=== PATIENT | male | born 1935 | race African-American/Black ===

== ENCOUNTER → 2018-05-17 08:46 | Outpatient (CLI) | payer MEDICARE, SELFPAY ==
[2018-05-17 08:32] VITALS: BMI 25.7
--- NOTE | 2018-05-17 08:52 | CT_ITS ---
STUDY: CTA NECK WITH AND WITHOUT CONTRAST REASON FOR EXAM: Male, 82 years old. Bilateral carotid stenosis on duplex ultrasonography. RADIATION DOSAGE (If Supplied By Facility): CTDIvol = ( 26.35 ) mGy, DLP = ( 667.00 ) mGycm TECHNIQUE: CT angiography with multi-detector data acquisition was performed from the aortic arch to the skull base prior to and after intravenous administration of 100mL ml of Isovue 370 contrast. MIP images were reconstructed from the axial data set. Post-processing of the angiographic images was performed, with multiplanar reformation and 3D reconstruction. Individualized dose optimization techniques were used for this CT. COMPARISON: None. FINDINGS: AORTIC ARCH: There is atherosclerotic calcific plaque formation of the aortic arch and great vessels arising from the aortic arch, without a hemodynamically significant stenosis. There is a normal origin of the brachiocephalic, left common carotid, and left subclavian arteries. Atherosclerotic plaque at the origin of the left subclavian artery and right brachiocephalic artery. RIGHT CAROTID ARTERIES: There is atherosclerotic plaque formation of the common carotid artery, but without a hemodynamically significant stenosis. Normal right common carotid bulb. There is moderate atherosclerotic plaque formation of the origin of the right internal carotid artery with an estimated stenosis of 50-69% stenosis. Left leg stenosis just distal to the origin of the right internal carotid artery causing a subtotal occlusion. Normal origin of the right external carotid artery (ECA). LEFT CAROTID ARTERIES: Normal left common carotid artery (CCA). Normal left common carotid bulb. There is complete occlusion of the origin of the left internal carotid artery without demonstrated arterial flow. Normal visualized cervical portion of the left internal carotid artery. Normal origin of the left external carotid artery (ECA). VERTEBRAL ARTERIES: Normal bilateral vertebral arteries. 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 Subtotal occlusion due to a web like stenosis in the proximal portion of the right internal carotid artery just distal to its origin. Electronically Signed: Mehrdad Delgado MD at 10:42 EST Tel [phone], Service support ,
[2018-05-17 09:23] LABS: Anion Gap 6 (5-15); BUN 18 mg/dL (7-18); Chloride 104 mmol/L (98-107); Creatinine, Serum 1.06 mg/dL (0.70-1.30); EST Glomerular Filtration Rate 71 mL/min (>60); Est Glom Filt Rate - Afr Amer 86 mL/min (>60); Glucose 94 mg/dL (74-106); Potassium 4.1 mmol/L (3.5-5.1); Sodium Level 142 mmol/L (136-145)
[2018-05-17 09:40] LABS: Hematocrit 39.3 % (40-54); Hemoglobin 12.2 g/dl (13.0-16.5); Mean Corpuscular Hgb 22.2 pg (27.0-32.0); Mean Corpuscular Volume 71.6 fL (80-94); Platelet Count 178 K/mm3 (150-450); RBC Distribution Width CV 16.7 % (11.6-14.6); RBC Distribution Width SD 42.9 fl (35.1-43.9); Red Blood Count 5.49 M/mm3 (4.6-6.2); White Blood Count 5.2 K/mm3 (4.4-11.0)
[2018-05-17 09:48] LABS: Scan Indicated on CBC? Y/N YES- FLAGS NOTED
== END ==
PROVIDERS: Family Provider Family Medicine; PCP Family Medicine; Referring Provider Surgery; Visit Provider Surgery
DX: Z01.818 Encounter for other preprocedural examination (principal); I65.23 Occlusion and stenosis of bilateral carotid arteries
CPT/HCPCS: 36415; 70498; 80048; 85027; 93005; Q9967

== ENCOUNTER 2018-09-12 22:29 | Inpatient (IN) | payer MEDICARE, SELFPAY ==
[2018-05-17 08:32] VITALS: BMI 25.7
[2018-09-12 22:30] VITALS: BP 160/103; PULSE 104; RESP 30; TEMP 37.8; O2SAT 94; BMI 26.2
--- NOTE | 2018-09-12 22:34 | EKG12_ITS ---
Test Reason : SOB Blood Pressure : / mmHG Vent. Rate : 089 BPM Atrial Rate : 089 BPM P-R Int : 146 ms QRS Dur : 094 ms QT Int : 346 ms P-R-T Axes : 021 006 015 degrees QTc Int : 420 ms Sinus rhythm with Premature atrial complexes Incomplete right bundle branch block Borderline ECG Confirmed by ERNESTINE FRANCIS ([id number]), purchasing expeditor MAXWELL LION ([id number]) on 09/15/2018 11:05:58 AM Referred By: ALLYSSA Confirmed By:ERNESTINE FRANCIS
[2018-09-12 22:35] VITALS: BP 160/103; PULSE 106; RESP 30; TEMP 37.8; O2SAT 97
--- NOTE | 2018-09-12 22:39 | ED.DCSUM_ITS ---
- ER Visit Summary Date of Service: 09/12/18 Chief Complaint: Cough, shortness of breath History of Present Illness: The patient is a 83 M presents to the emergency department with cough and shortness of breath. The patient states his symptoms began earlier this afternoon. He states he had gradual worsening shortness of breath. The patient does have a history of emphysema and continues to smoke. He is not on oxygen at home. States he just felt like he was getting more short of breath, more fatigued, more weak. He denies any chest pain. He denies headache or visual change. He has had myalgias and arthralgias. He denies any neck pain. He has had productive sputum and a few bouts of posttussive emesis. He denies any urinary symptoms. Physical Examination: Vital signs reviewed General: Well-nourished, well-developed Head: Normocephalic, atraumatic Eyes: Pupils equal and reactive, extraocular muscles intact Neck, supple, no lymphadenopathy Heart: Regular rate and rhythm Respiratory: Wheezing in all lung fuentes with diminished respiratory movement Abdomen: Soft, nontender, nondistended, no peritoneal signs Back: Nontender Extremities: Nontender, no edema, no cords Skin: Normal color no rash Neuro: Alert and oriented, no focal or lateralizing deficits Test Results: [] Emergency Department Course and Treatment: Patient presents with cough, shortness of breath, and fever. His lungs have diffuse wheezing in all fuentes. Chest x-ray was obtained. There is no definitive focal infiltrate, but he does have some haziness in the right lower base. Screening labs obtained were unremarkable. With nebulized breathing treatments, steroids, and fluids, he is feeling markedly improved. He is resting comfortably with resolution of his tachypnea. Patient had blood cultures obtained. His lactic was normal. Given his increased work of breathing I do feel that he would benefit from admission. I am going to cover him for community-acquired pneumonia with plan to de- escalate antibiotics as necessary. The patient was discussed with the hospitalist. Treatment Plan: [] Disposition: Admission Impression: 1. COPD exacerbation 2. Hypoxia This note was generated with [employer] software. It may contain incorrect words, spelling, and punctuation that were not noted in review of the chart prior to signing ED Disposition - Plan for ED Patient: Referrals: Marcos Moraes MD [Primary Care Provider] -
[2018-09-12] MEDS: Acetaminophen 500 MG Tablet 1000 MG PO (22:40)
[2018-09-12] MEDS: MethylPREDNISolone 125 MG/2 ML Vial IV (22:40)
--- NOTE | 2018-09-12 22:40 | RAD_ITS ---
STUDY: X-RAY CHEST REASON FOR EXAM: Male, 83 years old. Shortness of breath TECHNIQUE: Single frontal view of the chest. COMPARISON: None. FINDINGS: The lungs are clear and expanded. There is no demonstrated pleural abnormality. Normal size heart. Normal mediastinum and ryan. Normal visualized pulmonary arteries. Normal visualized aortic arch and descending thoracic aorta. Normal visualized thoracic spine. Normal visualized ribs, clavicles, and shoulders. There is no demonstrated abnormality of the visualized soft tissue structures of the upper abdomen. RAD/Chest 1 View (Portable) IMPRESSION: Normal x-ray examination of the chest. Electronically Signed: Mc Nolasco MD at 22:55 EDT , Service support ,
--- NOTE | 2018-09-12 22:40 | ED.RN ---
NO OLD EKGS IN MUSE
[2018-09-12] MEDS: 0.9% Normal Saline 1,000 ML 150 ML IV (22:41)
[2018-09-12] MEDS: Ondansetron 4 MG/2 ML Vial IV (22:42)
[2018-09-12] MEDS: Ipratropium/Albuterol Sulfate 3 ML AMPUL.NEB INHALATION (23:00)
[2018-09-12] MEDS: Albuterol 2.5 MG/3 ML VIAL.NEB. INHALATION ×2 (23:00)
[2018-09-12 23:01] VITALS: PULSE 89; RESP 20
[2018-09-12 23:02] LABS: Absolute Lymphocyte Count 0.78 X10^3/ul (0.83-4.51); Absolute Neutrophil Count 6.6 X10^3/uL (2.0-7.7); Basophil# 0.02 X10^3/uL; Basophil% 0.3 % (0-1); Differential Indicated SCAN CRITERIA MET; Eosinophil# 0.02 X10^3/uL; Eosinophils% 0.3 % (0-5); Hematocrit 37.6 % (40-54); Hemoglobin 11.7 g/dl (13.0-16.5); Lymphocyte # 0.78 X10^3/ul (4.0); Lymphocyte % 10.3 % (19-41); Mean Corp Hgb Conc 31.1 g/gl (32-36); Mean Corpuscular Hgb 22.2 pg (27.0-32.0); Mean Corpuscular Volume 71.3 fL (80-94); Monocyte# 0.17 X10^3/uL; Monocyte% 2.2 % (0-10); Neutrophil # 6.58 X10^3/uL (2.7-7.7); Neutrophil % 86.8 % (47-70); POSITIVE COUNT NO; POSITIVE DIFFERENTIAL NO; POSITIVE MORPHOLOGY YES; Platelet Count 137 K/mm3 (150-450); RBC Distribution Width CV 16.6 % (11.6-14.6); RBC Distribution Width SD 42.6 fl (35.1-43.9); Red Blood Count 5.27 M/mm3 (4.6-6.2); White Blood Count 7.6 K/mm3 (4.4-11.0)
[2018-09-12 23:10] LABS: Anion Gap 5 (5-15); BUN 28 mg/dL (7-18); BUN/Creat Ratio 19.2 RATIO (10-20); Calcium,Total 8.9 mg/dL (8.5-10.1); Chloride 105 mmol/L (98-107); Creatinine, Serum 1.46 mg/dL (0.70-1.30); EST Glomerular Filtration Rate 49 mL/min (>60); Est Glom Filt Rate - Afr Amer 59 mL/min (>60); Estimated Creatinine Clearance 46.24 ml/min; Glucose 105 mg/dL (74-106); Sodium Level 139 mmol/L (136-145)
[2018-09-12 23:18] VITALS: BP 94/70; PULSE 86; RESP 26; TEMP 38.3; O2SAT 100
[2018-09-12 23:23] LABS: Differential Comment SCANNED; Platelet Estimate SLT DEC (ADEQ)
[2018-09-12 23:28] LABS: BNP,B-Type NATRIURETIC PEPTIDE 107.3 pg/mL (0-100); Lactic Acid 1.4 mmol/L (0.4-2.0)
[2018-09-12] MEDS: Ceftriaxone 1 GM/50 ML BAG IV (23:45)
[2018-09-12 23:46] VITALS: BP 108/69; PULSE 93; RESP 24; O2SAT 100
[2018-09-12 23:47] VITALS: PULSE 92; RESP 18
--- NOTE | 2018-09-12 23:51 | PCM.HP.STD ---
Problem List (1) Acute respiratory failure with hypoxia Status: Acute (2) Sepsis Status: Acute Qualifiers: Sepsis type: sepsis due to unspecified organism Qualified Code(s): A41.9 - Sepsis, unspecified organism (3) Pneumonia Status: Acute Qualifiers: Pneumonia type: due to unspecified organism Laterality: right Lung location: unspecified part of lung Qualified Code(s): J18.9 - Pneumonia, unspecified organism (4) COPD exacerbation Status: Acute (5) ANGLE (acute kidney injury) Status: Acute (6) Carotid stenosis, bilateral Status: Chronic (7) Microcytic anemia Status: Chronic (8) Hyperlipidemia Status: Chronic Qualifiers: Hyperlipidemia type: unspecified Qualified Code(s): E78.5 - Hyperlipidemia, unspecified (9) Hypertension Status: Chronic Qualifiers: Hypertension type: essential hypertension Qualified Code(s): I10 - Essential (primary) hypertension (10) History of kidney stones Status: Chronic (11) BPH (benign prostatic hyperplasia) Status: Chronic Qualifiers: Lower urinary tract symptom presence: unspecified whether lower urinary tract symptoms present Qualified Code(s): N40.0 - Benign prostatic hyperplasia without lower urinary tract symptoms (12) Arthritis Status: Chronic (13) Former tobacco use Status: Chronic History of Present Illness Date of Admission: 09/12/18 Chief Complaint: Dyspnea, wheezing, productive cough, fever, chills The patient is a 83 y/o M w/ PMHx: Chronic COPD, Former Tobacco use (prolonged), BPH, Carotid disease BL without intervention, HTN, HLD, OA, Microcytic anemia, Hx Nephrolithiasis who presents to the [facility] ED on 09/12/18 with history of nearing 2-week history of mild upper respiratory symptoms with rhinorrhea, congestion, productive sputum occasionally with also occasional wheezing intermittently with an onset at approximately 8 PM on day of ED presentation severely worsened dyspnea, severe only worsened wheezing with increased respiratory rate, accessory muscle usage and conversational dyspnea with concurrent onset fevers and chills prompting ED presentation. Work-up in the ED included T up to 101, heart rate initially 104, BP initially 160/103, respiratory rate 30, 94% on room air improvement to T 92, respiratory rate 18, 100% on 2 L following aggressive interventions and treatments, the BC with WBC 7.6, hemoglobin 11.7, platelets 137 with mild left shift, BMP with BUN/creatinine 28/1.46, glucose 105, lactic acid 1.4, troponin less than 0.015, BNP 107.3, EKG with sinus rhythm with nonspecific changes with no acute evidence of ischemia, rapid influenza negative, blood culture x2 obtained per the ED, chest x-ray formal read with no acute cardiopulmonary findings however review and examination concerning for right middle and right lower lobe possible pneumonia. In the ED patient ministered Zofran, Solu-Medrol 125 mg IV x1, Rocephin, doxycycline, DuoNeb and albuterol therapies as well as Tylenol in addition to aggressive normal saline. Past Medical History Past Medical History (Chronic Problems): Chronic Problems (Last Reviewed 05/17/18 @ 08:35 by Sindhu Flaherty) Former tobacco use (Chronic) Carotid stenosis, bilateral (Chronic) Microcytic anemia (Chronic) Hyperlipidemia (Chronic) Hypertension (Chronic) History of kidney stones (Chronic) BPH (benign prostatic hyperplasia) (Chronic) Arthritis (Chronic) Medical History: Medical History (Last Reviewed 05/17/18 @ 08:35 by Sindhu Flaherty) Emphysema lung (Acute) J43.9 Carotid stenosis, bilateral (Acute) I65.23 Glaucoma (Acute) H40.9 OA (osteoarthritis) of hip (Acute) M16.9 Microcytic anemia (Acute) D50.9 Hyperlipidemia (Acute) E78.5 Hypertension (Chronic) I10 History of kidney stones (Acute) Z87.442 Hematuria (Acute) R31.9 BPH (benign prostatic hyperplasia) (Acute) N40.0 Arthritis (Acute) M19.90 Abnormal stress test (Acute) R94.39 Allergies No Known Allergies Allergy (Verified 05/17/18 08:20) Home Medications: Ambulatory Orders Medication Instructions Recorded Naproxen Sodium [Aleve] 220 mg PO Q8H PRN PRN 12/12/13 Pravastatin [Pravachol] 20 mg PO DAILY 12/12/13 aspirin 81 mg tablet,delayed 81 mg PO DAILY 05/17/18 release brimonidine 0.1 % eye drops 1 drp OPHTHALMIC BID ml 05/17/18 finasteride 5 mg tablet 5 mg PO DAILY 05/17/18 nicotine 21 mg/24 hr daily 1 patch TRANSDERMAL DAILY 05/17/18 transdermal patch omeprazole magnesium 20 mg 20 mg PO DAILY 05/17/18 tablet,delayed release tamsulosin 0.4 mg capsule 0.4 mg PO DAILY 05/17/18 timolol 0.25 % eye drops 1 drp OPHTHALMIC BID 05/17/18 Surgical History: Surgical History (Last Reviewed 05/17/18 @ 08:35 by Sindhu Flaherty) Hx of right inguinal hernia repair (Acute) Z98.890, Z87.19 History of total right hip arthroplasty (Acute) Z96.641 08/21/2014 History of prostate surgery (Acute) Z98.890 History of back surgery (Acute) Z98.890 Hx of lithotripsy (Acute) Z98.890 x3 Hx of cystoscopy (Acute) Z98.890 Hx of colonoscopy (Acute) Z98.890 Surgical History: - - Nephrolithiasis intervention with lithotripsy x3, prostate surgery, back surgery, right total hip replacement, right inguinal hernia repair. Psychiatric History: No pertinent psych hx Lives: Spouse/ Significant Other Smoking Status: Former smoker - Former cigarette tobacco usage with prior 1 to 1.5 pack/q 2 days, quit 05/15/18. Tobacco Use: Non-smoker Alcohol: None Drugs: None - *Family History Maternal Family History: Family History (Last Reviewed 05/17/18 @ 08:35 by Sindhu Flaherty) Mother Heart disease History Items: Heart Disease Paternal Family History: Family History (Last Reviewed 05/17/18 @ 08:35 by Sindhu Flaherty) Mother Heart disease History Items: Unknown - Patient states he does not know any of his paternal family history. Review of Systems Constitutional: Reports: Anorexia, Chills, Fever, Malaise, Weakness, Fatigue. Denies: Weight Change HEENT: Reports: Post Nasal Drip, Sinus Congestion, Sinus Drainage, Sore Throat. Denies: Head Aches Cardiovascular: Denies: Chest Pain, Palpitations Respiratory: Reports: Cough, Shortness of Breath, Shortness of breath at rest, Shortness of breath upon exertion, Sputum production, Wheezing Gastrointestinal: Denies: Abdominal Pain, Nausea, Vomiting Genitourinary: Denies: Dysuria Musculoskeletal: Reports: Joint Pain. Denies: Joint Tenderness Skin: Denies: Rash, Wounds Neurological: Denies: Numbness, Tingling, Focal weakness Psychiatric: Denies: Anxiety, Depression, Homicidal Ideations, Suicidal Ideations Hematologic/ Lymphatic: Reports: Anemia. Denies: Easy Bruising, Easy Bleeding VTE Information - Inpt Only VTE Present on Admission: No VTE Mechan Device Prophylaxis: SCD's VTE Pharm Prophylaxis ordered?: Yes Patient Problems: Active and Suspected Problems (Last Reviewed 05/17/18 @ 08:35 by Sindhu Flaherty) Acute respiratory failure with hypoxia (Acute) Sepsis (Acute) Pneumonia (Acute) COPD exacerbation (Acute) ANGLE (acute kidney injury) (Acute) Subjective: Seated upright in the bed, fatigued appearance, notes feeling remarkably improved since initial ED presentation. Objective: Physical Examination: General: awake, alert, oriented x 3 and cooperative, seated upright in the ED bed, markedly improved since initial ED presentation, currently respiratory rate has improved and normalizing, accessory muscle usage lessening, able to speak in full her sentences. Skin: normal color, turgor, no icterus, cyanosis. HEENT: AT/NC, EOMI, PERRLA, moderately dry MM, no carotid bruits although noted history of bilateral carotid disease with no intervention or JVD noted. Lungs: Severely diffusely diminished, right mid and base rhonchorous breath sounds, no current wheezing, effort improving but upon presentation had increased respiratory rate, accessory muscle usage and conversational dyspnea and obvious respiratory failure. Heart: Improved, regular rate and rhythm; no gallop, rub audible. Abdomen: soft, NTTP, ND, normal BS, no HSM. Extremities: no cyanosis, clubbing, or edema. Neurological: patient awake, alert, oriented x 3; cognitive function intact; pupils equally reactive to light and accomodation; cranial nerves II-XII grossly normal, moving all 4 extremities, no focal deficits, strength severely global decrease secondary to acute presentation. Psychiatric: affect appears fatigued, no acute evidence of depressive or anxiety feelings. - Physical Exam Vital Signs Temp Pulse Resp BP Pulse Ox 101.0 F H 92 18 108/69 100 09/12/18 23:18 09/12/18 23:47 09/12/18 23:47 09/12/18 23:46 09/12/18 23:46 Oxygen Flow Rate (L/min) 2 Oxygen Delivery Method Nasal Cannula Weight: 215 lb 13.321 oz Body Mass Index (BMI) 26.2 Microbiology Past 72 Hours 09/12/18 22:55 Influenza Types A,B Direct FA (ROHIT) - Final Mucosa - Nasopharyngeal Laboratory Tests Past 24 Hrs 09/12/18 09/12/18 09/12/18 22:40 22:40 22:40 WBC 7.6 RBC 5.27 Hgb 11.7 L Hct 37.6 L MCV 71.3 L MCH 22.2 L MCHC 31.1 L RDW 16.6 H RDW Differential 42.6 Plt Count 137 L MPV TNP Immature Gran % (Auto) 0.100 Neut % (Auto) 86.8 H Lymph % (Auto) 10.3 L [place] % (Auto) 2.2 Eos % (Auto) 0.3 Baso % (Auto) 0.3 Absolute Neuts (auto) 6.6 Absolute Lymphs (auto) 0.78 L Total Counted Not Reportable Differential Comment SCANNED Platelet Estimate SLT DEC Sodium 139 Potassium 4.0 Chloride 105 Carbon Dioxide 29.0 Anion Gap 5 BUN 28 H Creatinine 1.46 H Estim Creat Clear Calc 46.24 Est GFR (MDRD) Af Amer 59 L Est GFR (MDRD) Non-Af 49 L BUN/Creatinine Ratio 19.2 Glucose 105 Lactic Acid 1.4 Calcium 8.9 Troponin I < 0.015 B-Natriuretic Peptide 09/12/18 22:40 WBC RBC Hgb Hct MCV MCH MCHC RDW RDW Differential Plt Count MPV Immature Gran % (Auto) Neut % (Auto) Lymph % (Auto) [place] % (Auto) Eos % (Auto) Baso % (Auto) Absolute Neuts (auto) Absolute Lymphs (auto) Total Counted Differential Comment Platelet Estimate Sodium Potassium Chloride Carbon Dioxide Anion Gap BUN Creatinine Estim Creat Clear Calc Est GFR (MDRD) Af Amer Est GFR (MDRD) Non-Af BUN/Creatinine Ratio Glucose Lactic Acid Calcium Troponin I B-Natriuretic Peptide 107.3 H Assessment/Plan All Active Problems (Last Reviewed 05/17/18 @ 08:35 by Sindhu Flaherty) Acute respiratory failure with hypoxia (Acute) Sepsis (Acute) Pneumonia (Acute) COPD exacerbation (Acute) ANGLE (acute kidney injury) (Acute) Emphysema lung (Acute) Hx of right inguinal hernia repair (Acute) History of total right hip arthroplasty (Acute) History of prostate surgery (Acute) History of back surgery (Acute) Hx of lithotripsy (Acute) Hx of cystoscopy (Acute) Hx of colonoscopy (Acute) Glaucoma (Acute) OA (osteoarthritis) of hip (Acute) Hematuria (Acute) Abnormal stress test (Acute) The patient is a 83 y/o M w/ PMHx: Chronic COPD, Former Tobacco use (prolonged), BPH, Carotid disease BL without intervention, HTN, HLD, OA, Microcytic anemia, Hx Nephrolithiasis who presents to the [facility] ED on 09/12/18 with history of nearing 2-week history of mild upper respiratory symptoms with rhinorrhea, congestion, productive sputum occasionally with also occasional wheezing intermittently with an onset at approximately 8 PM on day of ED presentation severely worsened dyspnea, severe only worsened wheezing with increased respiratory rate, accessory muscle usage and conversational dyspnea prompting ED presentation. (1) Acute Sepsis secondary to Acute Hypoxic Respiratory Failure secondary to Suspected R Middle and RLL PNA in addition to Acute on chronic COPD exacerbation: CXR w/ chronic changes on read but review and examination concerning for RM and RLL PNA, febrile, tachycardic, increased RR, accessory muscle usage, conversational dyspnea. LA normal. Will admit to [facility] w/ telemetry, maintain on oxygen with wean as tolerated to room air, continue ATC duonebs, PRN albuterol, IV methylprednisolone, HOB, IS parameters, IV Rocephin and Azithromcyin with pending sputum cultures, urine antigens and respiratory viral panel. PT, OT, CM consulted for discharge planning. Will need oxygenation testing prior to discharge to home. Notably improved in the ED following treatments. (2) Acute kidney injury: Secondary to acute presentation #1, decreased intake. Admission BUN/Cr 28/1.46, prior baseline creatinine noted to be 1.0. Will hydrate, hold nephrotoxic medications and repeat chemistry in AM. If no improvement would plan FeNa assessment. (3) Iron deficiency anemia: Unclear etiology, decreased since the beginning of year, hemoglobin 11.7, microcytic, will obtain iron panel, ferritin, guaiac, vitamin B12 and folic acid levels. Initiate iron supplementation. (4) BL Carotid Disease: No intervention history, holding asa, on statin therapy. (5) Hypertension: Unclear regimen, waiting updated list, PRN hydralazine in interim. (6) Hyperlipidemia: Continue home statin regimen. (7) Former tobacco use: Prior cigarette tobacco usage, prolonged, quit May 152018, encouraged continued tobacco cessation. (8) BPH: Continue home flomax and finasteride regimen. (9) GERD: PPI. (10) DVT Prophylaxis: SCDs, heparin. (11) CODE status: Patient's and daughter are healthcare power of insurance attorney. Patient does have living will in place. Discussed CODE status at length including difference between FULL code, DNR-CCA and DNR-CC status. Following discussions about the differences in these status, requested Full Code status. Advanced Care Planning Face to Face Time: 16 minutes. Code Visit Inpatient E&M: 78150 Init Hosp L3 Procedures: 64467 Advncd Care Plan 30 Min
[2018-09-13] VITALS (16 sets, daily range): BP systolic 108–158; BP diastolic 59–71; PULSE 59–105; RESP 18–24; TEMP 36.3–37.3; O2SAT 91–100; BMI 24.3
[2018-09-13 01:42] LABS: Vitamin B12 284 pg/mL (211-911)
[2018-09-13 02:06] LABS: Ferritin 235 ng/mL (26-388); Iron 16 ug/dL (65-175); Iron Binding Capacity,Total 272 ug/dL (250-450); Magnesium 1.6 mg/dL (1.6-2.6); PERCENT IRON SATURATION 5.9 % (15.0-55.0)
[2018-09-13 05:58] LABS: Absolute Lymphocyte Count 0.51 X10^3/ul (0.83-4.51); Absolute Neutrophil Count 9.5 X10^3/uL (2.0-7.7); Basophil# 0.01 X10^3/uL; Basophil% 0.1 % (0-1); Hematocrit 34.8 % (40-54); Hemoglobin 10.7 g/dl (13.0-16.5); Lymphocyte # 0.51 X10^3/ul (4.0); Mean Corp Hgb Conc 30.7 g/gl (32-36); Mean Corpuscular Volume 71.6 fL (80-94); Monocyte# 0.17 X10^3/uL; Monocyte% 1.7 % (0-10); Neutrophil # 9.52 X10^3/uL (2.7-7.7); Neutrophil % 93.1 % (47-70); Platelet Count 142 K/mm3 (150-450); RBC Distribution Width CV 16.8 % (11.6-14.6); RBC Distribution Width SD 44.1 fl (35.1-43.9); Red Blood Count 4.86 M/mm3 (4.6-6.2); White Blood Count 10.2 K/mm3 (4.4-11.0)
[2018-09-13 05:59] LABS: POSITIVE COUNT NO; POSITIVE DIFFERENTIAL YES; POSITIVE MORPHOLOGY YES
[2018-09-13 06:00] LABS: Differential Indicated SCAN CRITERIA MET
[2018-09-13 06:04] LABS: Anion Gap 2 (5-15); BUN 27 mg/dL (7-18); BUN/Creat Ratio 19.3 RATIO (10-20); Calcium,Total 8.3 mg/dL (8.5-10.1); Chloride 104 mmol/L (98-107); EST Glomerular Filtration Rate 51 mL/min (>60); Est Glom Filt Rate - Afr Amer 62 mL/min (>60); Estimated Creatinine Clearance 48.22 ml/min; Glucose 259 mg/dL (74-106); Potassium 4.1 mmol/L (3.5-5.1); Sodium Level 136 mmol/L (136-145)
[2018-09-13 06:21] LABS: Anisocytosis 1+; Differential Comment SCAN; Hypochromasia 1+; Microcytosis 1+; Platelet Estimate SLT DEC (ADEQ); Platelet Morphology LARGE
[2018-09-13] MEDS: 0.9% NaCl Peripheral Flush Adult/Peds IV ×4 (06:32→21:06)
[2018-09-13] MEDS: 0.9% Normal Saline 1,000 ML 125 ML IV ×2 (06:33→16:23)
[2018-09-13] MEDS: Ipratropium/Albuterol Sulfate 3 ML AMPUL.NEB INHALATION ×4 (06:43→20:00)
[2018-09-13] MEDS: Timolol 0.5% 5ML OPTH.BTL 1 DRP OPHTHALMIC ×2 (08:07→21:15)
[2018-09-13] MEDS: BRIMONIDINE 0.2% 5ML BOTTLE 1 DRP OPHTHALMIC ×2 (08:07→21:17)
[2018-09-13] MEDS: Pantoprazole Sodium 20 MG Tablet PO (08:13)
[2018-09-13] MEDS: Tamsulosin HCl 0.4 MG Capsule PO (08:13)
[2018-09-13] MEDS: Aspirin E.C. 81 MG Tablet PO (08:13)
[2018-09-13] MEDS: guaiFENesin 1,200 MG Tablet 1200 MG PO ×2 (08:13→21:06)
[2018-09-13] MEDS: Ferrous Gluconate 324 MG Tablet PO ×2 (08:13→16:23)
[2018-09-13] MEDS: Finasteride 5 MG Tablet PO (08:13)
[2018-09-13] MEDS: Heparin Injection (Vial) 5,000 UNIT/ML VIAL 5000 UNIT SC ×2 (08:13→21:06)
--- NOTE | 2018-09-13 08:36 | PCM.PN.HOSP ---
Patient Problems: Active and Suspected Problems (Last Reviewed 05/17/18 @ 08:35 by Sindhu Flaherty) Acute respiratory failure with hypoxia (Acute) Sepsis (Acute) Pneumonia (Acute) COPD exacerbation (Acute) ANGLE (acute kidney injury) (Acute) Subjective: Patient is on 83-year-old gentleman with past medical history significant for COPD presented with progressive shortness of breath. An assessment of acute hypoxic respiratory failure was made admitted to regular nursing for further management Objective: GENERAL: cooperative HEENT: Atraumatic; EYES; Anicteric, Normal Conjunctiva NECK; supple, normal thyroid, RESPIRATORY: Diminished to auscultation bilaterally, CARDIOVASCULAR: Regular S1 S2, GI: soft, non-tender, normoactive bowel sounds, : No Renal angle tenderness; EXTREMITIES: No edema, no clubbing, no cyanosis. MUSCULOSKELETAL: No Joint Tenderness; NEURO: Awake; no lateralizing signs. SKIN: No Rash PSYCH; Normal affect Vitals/I&O's: Vital Signs Temp Pulse Resp BP Pulse Ox 97.4 F L 59 L 18 158/71 H 91 09/13/18 06:41 09/13/18 07:21 09/13/18 06:43 09/13/18 06:41 09/13/18 06:43 Oxygen Flow Rate (L/min) 2 Oxygen Delivery Method Room Air Weight: 90.5 kg Body Mass Index (BMI) 24.3 Intake and Output for Last 24 Hours 09/11/18 09/12/18 09/13/18 23:59 23:59 23:59 Intake Total 1053 / 1053 Balance 1053 / 1053 Microbiology Past 72 Hours 09/13/18 06:30 Urine, Clean Catch Streptococcus pneumoniae Antigen (M - Final 09/13/18 06:30 Urine, Clean Catch Legionella Antigen - Final 09/12/18 22:55 Mucosa - Nasopharyngeal Influenza Types A,B Direct FA (ROHIT) - Final Laboratory Results 09/12/18 22:40: WBC 7.6, RBC 5.27, Hgb 11.7 L, Hct 37.6 L, MCV 71.3 L, MCH 22.2 L, MCHC 31.1 L, RDW 16.6 H, RDW Differential 42.6, Plt Count 137 L, MPV TNP, Immature Gran % (Auto) 0.100, Neut % (Auto) 86.8 H, Lymph % (Auto) 10.3 L, Weld % (Auto) 2.2, Eos % (Auto) 0.3, Baso % (Auto) 0.3, Absolute Neuts (auto) 6.6, Absolute Lymphs (auto) 0.78 L, Total Counted Not Reportable, Differential Comment SCANNED, Platelet Estimate SLT 09/12/18 22:40: Sodium 139, Potassium 4.0, Chloride 105, Carbon Dioxide 29.0, Anion Gap 5, BUN 28 H, Creatinine 1.46 H, Estim Creat Clear Calc 46.24, Est GFR (MDRD) Af Amer 59 L, Est GFR (MDRD) Non-Af 49 L, BUN/Creatinine Ratio 19.2, Glucose 105, Calcium 8.9, Troponin I < 0.015 09/12/18 22:40: Lactic Acid 1.4 09/12/18 22:40: B-Natriuretic Peptide 107.3 H 09/12/18 22:40: Magnesium 1.6, Iron 16 L, TIBC 272, Iron Saturation 5.9 L, Ferritin 235, Folate 8.80 09/12/18 22:40: Vitamin B12 284 09/13/18 05:04: WBC 10.2, RBC 4.86, Hgb 10.7 L, Hct 34.8 L, MCV 71.6 L, MCH 22.0 L, MCHC 30.7 L, RDW 16.8 H, RDW Differential 44.1 H, Plt Count 142 L, Immature Gran % (Auto) 0.100, Neut % (Auto) 93.1 H, Lymph % (Auto) 5.0 L, Weld % (Auto) 1.7, Eos % (Auto) 0.0, Baso % (Auto) 0.1, Absolute Neuts (auto) 9.5 H, Absolute Lymphs (auto) 0.51 L, Total Counted Not Reportable, Differential Comment SCAN, Platelet Estimate T APR, Plt Morphology Comment LARGE, Hypochromasia 1+, Anisocytosis 1+, Microcytosis 1+ 09/13/18 05:04: Sodium 136, Potassium 4.1, Chloride 104, Carbon Dioxide 30.0, Anion Gap 2 L, BUN 27 H, Creatinine 1.40 H, Estim Creat Clear Calc 48.22, Est GFR (MDRD) Af Amer 62, Est GFR (MDRD) Non-Af 51 L, BUN/Creatinine Ratio 19.3, Glucose 259 H, Calcium 8.3 L Current Medications Acetaminophen (Tylenol) 650 mg PO Q6H PRN PRN PRN Reason: Non-cardiac pain (mod-severe) Hydrocodone Bitart/Acetaminophen ([place] 5mg-325mg) 1 - 2 tablet PO Q6H PRN PRN PRN Reason: MOD-SEVERE PAIN (4-10/10) Al Hydroxide/Mg Hydroxide (Mylanta Ii) 15 - 30 ml PO Q4H PRN PRN PRN Reason: INDIGESTION Albuterol Sulfate (Ventolin Aerosols) 2.5 mg INHALATION Q2H PRN PRN PRN Reason: dyspnea, wheezing Albuterol/Ipratropium (Duoneb) 3 ml INHALATION Q4HWA.RT [facility] Last Admin: 09/13/18 06:43 Dose: 3 ml Aspirin (Ecotrin) 81 mg PO DAILY [facility] Last Admin: 09/13/18 08:13 Dose: 81 mg Brimonidine Tartrate (Brimonidine 0.2% 5ml Bottle) 1 drop OPHTHALMIC BID [facility] Last Admin: 09/13/18 08:07 Dose: 1 drop Dextrose (D50w Syringe) 0 gm IV X1 PRN; Protocol PRN Reason: Hypoglycemia Ferrous Gluconate (Ferrous Gluconate) 324 mg PO BIDCM [facility] Last Admin: 09/13/18 08:13 Dose: 324 mg Finasteride (Proscar) 5 mg PO DAILY [facility] Last Admin: 09/13/18 08:13 Dose: 5 mg Glucagon () 1 mg IM .X1 PRN PRN Reason: Hypoglycemia Guaifenesin (Mucinex) 1,200 mg PO BID [facility] Last Admin: 09/13/18 08:13 Dose: 1,200 mg Heparin Sodium (Porcine) (Heparin Na) 5,000 unit SC Q12 [facility] Last Admin: 09/13/18 08:13 Dose: 5,000 unit Hydralazine HCl (Apresoline Iv) 10 mg IV Q4H PRN PRN PRN Reason: SBP > 160 Sodium Chloride () 1,000 mls @ 125 mls/hr IV .Q8H [facility] Last Admin: 09/13/18 06:33 Dose: 125 mls/hr Azithromycin 500 mg/ Dextrose 255 mls @ 250 mls/hr IV Q24 [facility] Stop: 09/15/18 11:02 Ceftriaxone Sodium (Rocephin) 1 gm in 50 mls @ 100 mls/hr IV Q24 [facility] Melatonin (Melatonin) 3 mg PO QHS PRN PRN PRN Reason: INSOMNIA Methylprednisolone (Solu-Medrol) 40 mg IV Q8 [facility] Last Admin: 09/13/18 06:32 Dose: 40 mg Nitroglycerin (Nitrostat) 0.4 mg SUBLINGUAL Q5M PRN PRN Reason: CARDIAC/CHEST PAIN Ondansetron HCl (Zofran) 4 mg IV Q8H PRN PRN PRN Reason: NAUSEA/VOMITING Pantoprazole Sodium (Protonix) 20 mg PO DAILY [facility] Last Admin: 09/13/18 08:13 Dose: 20 mg Pravastatin Sodium (Pravachol) 20 mg PO QHS [facility] Sodium Chloride () 5 - 15 ml IV UD PRN PRN Reason: SALINE FLUSH Last Admin: 09/13/18 08:13 Dose: 10 ml Tamsulosin HCl (Flomax) 0.4 mg PO DAILY [facility] Last Admin: 09/13/18 08:13 Dose: 0.4 mg Timolol Maleate (Timoptic) 1 drop OPHTHALMIC BID [facility] Last Admin: 09/13/18 08:07 Dose: 1 drop Medical Necessity - Tobacco Use Smoking Status: Former smoker Tobacco Use: Non-smoker Assessment/Plan All Active Problems (Last Reviewed 05/17/18 @ 08:35 by Sindhu Flaherty) Acute respiratory failure with hypoxia (Acute) Sepsis (Acute) Pneumonia (Acute) COPD exacerbation (Acute) ANGLE (acute kidney injury) (Acute) Emphysema lung (Acute) Hx of right inguinal hernia repair (Acute) History of total right hip arthroplasty (Acute) History of prostate surgery (Acute) History of back surgery (Acute) Hx of lithotripsy (Acute) Hx of cystoscopy (Acute) Hx of colonoscopy (Acute) Glaucoma (Acute) OA (osteoarthritis) of hip (Acute) Hematuria (Acute) Abnormal stress test (Acute) Patient is on 83-year-old gentleman with past medical history significant for COPD presented with progressive shortness of breath. An assessment of acute hypoxic respiratory failure was made admitted to regular nursing for further management 1. Acute hypoxic respiratory failure secondary to COPD with acute exacerbation patient has been admitted to regular nursing floor where he is currently being managed with aerosol treatment, antibiotics as well as systemic steroid with supplemental oxygen titrated to keep saturation greater than 90 2. Acute sepsis ruled out 3. Pneumonia ruled out 4. Microcytic anemia secondary to iron deficiency anemia as evidenced by result of patient's iron studies. An order was given for patient's stool to be guaiac. In addition patient will need to undergo subsequent evaluation with both upper and lower endoscopy. 5. BPH patient is on Flomax continue 6. Hypertension-blood pressure controlled, home medications continued with dose adjustment as needed 7. Dyslipidemia-patient is on statin therapy, continued at home dose 8. Acute kidney injury on IV fluids with monitoring of electrolytes 9. Hematuria patient reports history of previous kidney stones plan is to monitor and if hematuria persists we will start CBI and possible consultation placed to urology 10. GERD patient is on PPI 11. History of bilateral carotid artery disease with no previous intervention 12. DVT prophylaxis patient had been started on heparin on admission however in view of above heparin was discontinued Active Medications Acetaminophen (Tylenol) 650 mg PO Q6H PRN PRN PRN Reason: Non-cardiac pain (mod-severe) Hydrocodone Bitart/Acetaminophen ([place] 5mg-325mg) 1 - 2 tablet PO Q6H PRN PRN PRN Reason: MOD-SEVERE PAIN (4-10/10) Al Hydroxide/Mg Hydroxide (Mylanta Ii) 15 - 30 ml PO Q4H PRN PRN PRN Reason: INDIGESTION Albuterol Sulfate (Ventolin Aerosols) 2.5 mg INHALATION Q2H PRN PRN PRN Reason: dyspnea, wheezing Albuterol/Ipratropium (Duoneb) 3 ml INHALATION Q4HWA.RT [facility] Last Admin: 09/13/18 10:37 Dose: 3 ml Aspirin (Ecotrin) 81 mg PO DAILY [facility] Last Admin: 09/13/18 08:13 Dose: 81 mg Brimonidine Tartrate (Brimonidine 0.2% 5ml Bottle) 1 drop OPHTHALMIC BID [facility] Last Admin: 09/13/18 08:07 Dose: 1 drop Dextrose (D50w Syringe) 0 gm IV X1 PRN; Protocol PRN Reason: Hypoglycemia [facility]ous [facility] Admin: 09/13/18 08:13 Dose: 324 mg Finasteride (Proscar) 5 mg PO DAILY [facility] Last Admin: 05/08/19 08:13 Dose: 5 mg Glucagon () 1 mg IM .X1 PRN PRN Reason: Hypoglycemia Guaifenesin (Mucinex) 1,200 mg PO BID [facility] Last Admin: 09/13/18 08:13 Dose: 1,200 mg Heparin Sodium (Porcine) (Heparin Na) 5,000 unit SC Q12 [facility] Last Admin: 09/13/18 08:13 Dose: 5,000 unit Hydralazine HCl (Apresoline Iv) 10 mg IV Q4H PRN PRN PRN Reason: SBP > 160 Sodium Chloride () 1,000 mls @ 125 mls/hr IV .Q8H [facility] Last Admin: 09/13/18 06:33 Dose: 125 mls/hr Azithromycin 500 mg/ Dextrose 255 mls @ 250 mls/hr IV Q24 [facility] Stop: 09/15/18 11:02 Last Admin: 09/13/18 10:03 Dose: 250 mls/hr Ceftriaxone Sodium (Rocephin) 1 gm in 50 mls @ 100 mls/hr IV Q24 [facility] Last Admin: 09/13/18 09:29 Dose: 100 mls/hr Melatonin (Melatonin) 3 mg PO QHS PRN PRN PRN Reason: INSOMNIA Methylprednisolone (Solu-Medrol) 40 mg IV Q8 [facility] Last Admin: 09/13/18 06:32 Dose: 40 mg Nitroglycerin (Nitrostat) 0.4 mg SUBLINGUAL Q5M PRN PRN Reason: CARDIAC/CHEST PAIN Ondansetron HCl (Zofran) 4 mg IV Q8H PRN PRN PRN Reason: NAUSEA/VOMITING Pantoprazole Sodium (Protonix) 20 mg PO DAILY [facility] Last Admin: 09/13/18 08:13 Dose: 20 mg Pravastatin Sodium (Pravachol) 20 mg PO QHS [facility] Sodium Chloride () 5 - 15 ml IV UD PRN PRN Reason: SALINE FLUSH Last Admin: 09/13/18 08:13 Dose: 10 ml Tamsulosin HCl (Flomax) 0.4 mg PO DAILY [facility] Last Admin: 09/13/18 08:13 Dose: 0.4 mg Timolol Maleate (Timoptic) 1 drop OPHTHALMIC BID [facility] Last Admin: 09/13/18 08:07 Dose: 1 drop Clinical Impression(s) from Imaging Studies Chest X-Ray 09/12/18 22:40 IMPRESSION: Normal x-ray examination of the chest. Electronically Signed: Mc Nolasco MD at 22:55 EDT , Service support , Code Visit Inpatient E&M: 22622 Subs Hosp L3
--- NOTE | 2018-09-13 09:08 | CASEMGMT ---
Social Work Note Per marketing writer questions, pt has completed LW and HCPOA, hasn't provided a copy to [facility] and is unable to bring in copies. 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
[2018-09-13] MEDS: Ceftriaxone 1 GM/50 ML BAG IV (09:29)
--- NOTE | 2018-09-13 12:10 | CASEMGMT ---
RN STARR CUSTOMER EXPERIENCE SPECIALIST CM to room to meet with patient for initial transition planning/care coordination assessment. RENÉ CLEMENTS introduced self and role at [facility]. Pt voices understanding and consents to assessment at this time. Pt sitting up in recliner chair, eating lunch, in no distress at this time. Pt is A/O at this time and answers all questions appropriately. Care providers, pharmacy, and demographics verified/updated at this time. PCP: Dimitry Specialists: Cardiovascular surgeon @ [facility]. States does not remember his name. Preferred Pharmacy: [facility] Insurance: [place] [facility] Prescription Benefit: Yes Living Will/HPOA: Has both LW and HCPOA who is his Natividad GALVEZOK: Living Arrangements: Lives with his in 2-story home.Uses both stories. 10-12 steps between floor w/rails. 3 steps to enter home @ front of house with rails. 2 steps to enter back of house. Denies difficulty with stairs. States is independent @ home w/ADL's. Does yard work/mowing. Transportation: Pt states drives self and states no transportation concerns at this time. can transport on d/c. DME: States has the following DME: Cane, shower chair, hand held shower. Denies home O2 or nebulizer. Pt states no need for further DME at this time. HHC/SNF: Hx of [facility] after hip surgery 2 years ago. Then had HHC agency after returning home from [facility] but does not remember the name. Pt wishes to return home and states has no concerns with going home at time of discharge. Pt states he would be interested in further therapy to help me walk better. Discussed HHC. Pt is not homebound and he was made aware this is a [facility] requirement. Pt states he is interested in getting Out-pt therapy. States would prefer to go [facility]. PT/OT evals pending. CM to follow for home oxygen needs and any further discharge planning/needs. Pt voices no further concerns/needs at this time. Advised pt to ask for CM if any further questions/concerns/needs arise. Voices understanding. PLAN: Home w/Out-pt therapy @ [facility]. Jessica POSADA RN, CM
[2018-09-13] MEDS: Pravastatin 20 MG Tablet PO (21:06)
[2018-09-14] MEDS: 0.9% Normal Saline 1,000 ML 125 ML IV (00:16)
[2018-09-14 01:59] VITALS: PULSE 60
[2018-09-14 03:22] VITALS: BP 117/70; PULSE 65; RESP 18; TEMP 36.3; O2SAT 99
[2018-09-14 05:58] LABS: Anion Gap 3 (5-15); BUN 19 mg/dL (7-18); Calcium,Total 8.2 mg/dL (8.5-10.1); Chloride 107 mmol/L (98-107); Creatinine, Serum 0.86 mg/dL (0.70-1.30); EST Glomerular Filtration Rate 90 mL/min (>60); Est Glom Filt Rate - Afr Amer 109 mL/min (>60); Glucose 170 mg/dL (74-106); Magnesium 1.9 mg/dL (1.6-2.6); Potassium 4.8 mmol/L (3.5-5.1); Sodium Level 141 mmol/L (136-145)
[2018-09-14 06:20] LABS: Hematocrit 32.7 % (40-54); Hemoglobin 10.2 g/dl (13.0-16.5); Mean Corp Hgb Conc 31.2 g/gl (32-36); Mean Corpuscular Hgb 22.3 pg (27.0-32.0); Mean Corpuscular Volume 71.4 fL (80-94); Platelet Count 127 K/mm3 (150-450); RBC Distribution Width CV 17.2 % (11.6-14.6); RBC Distribution Width SD 44.2 fl (35.1-43.9); Red Blood Count 4.58 M/mm3 (4.6-6.2); White Blood Count 14.6 K/mm3 (4.4-11.0)
[2018-09-14] MEDS: 0.9% NaCl Peripheral Flush Adult/Peds IV (06:20)
[2018-09-14 06:22] LABS: Scan Indicated on CBC? Y/N YES- FLAGS NOTED
[2018-09-14 06:45] LABS: Differential Comment SCAN
[2018-09-14 06:58] VITALS: PULSE 61; RESP 16; O2SAT 96
[2018-09-14] MEDS: Ipratropium/Albuterol Sulfate 3 ML AMPUL.NEB INHALATION (06:58)
[2018-09-14 07:32] VITALS: PULSE 67
--- NOTE | 2018-09-14 07:47 | DCINST_ITS ---
- Discharge Diagnoses Current Active Problems: Current Active and Chronic Problems Acute respiratory failure with hypoxia (Acute) Sepsis (Acute) Pneumonia (Acute) COPD exacerbation (Acute) ANGLE (acute kidney injury) (Acute) Former tobacco use (Chronic) You will use the following diet at home:: No restrictions Allergies/Adverse Reactions: Allergies No Known Allergies Allergy (Verified 05/17/18 08:20) Medications to take at Discharge Pravastatin [Pravachol] 20 mg PO DAILY 12/12/13 aspirin 81 mg tablet,delayed release 81 mg PO DAILY 05/17/18 brimonidine 0.1 % eye drops 1 drp OPHTHALMIC BID ml 05/17/18 finasteride 5 mg tablet 5 mg PO DAILY 05/17/18 omeprazole magnesium 20 mg tablet,delayed release 20 mg PO DAILY 05/17/18 tamsulosin 0.4 mg capsule 0.4 mg PO DAILY 05/17/18 timolol 0.25 % eye drops 1 drp OPHTHALMIC BID 05/17/18 Azithromycin 500 mg PO DAILY #3 tablet 09/14/18 Guaifenesin [Mucinex] 1,200 mg PO BID #14 tablet 09/14/18 Prednisone [Deltasone] 40 mg PO DAILY #8 tablet 09/14/18 The following prescriptions were given: Azithromycin 500 mg PO DAILY #3 tablet Guaifenesin [Mucinex] 1,200 mg PO BID #14 tablet Prednisone [Deltasone] 40 mg PO DAILY #8 tablet Primary Care Physician: Marcos Moraes MD [Primary Care Provider] - Please follow up with your Primary Care Physician in: in 5-7 days Test Results: Test results from this visit will be discussed in further detail at your follow- up appointment, if applicable. Please Follow Up With: Shola Hrone MD When: for outpatient Colonoscopy Proposed Discharge Date: 09/14/18
[2018-09-14 07:52] VITALS: BP 143/62; PULSE 67; RESP 16; TEMP 36.4; O2SAT 100
--- NOTE | 2018-09-14 07:52 | DS.PCM_ITS ---
Discharge Date and Diagnosis - Problem List Patient Problems: Active and Suspected Problems (Last Reviewed 05/17/18 @ 08:35 by Sindhu Flaherty) Acute respiratory failure with hypoxia (Acute) COPD exacerbation (Acute) ANGLE (acute kidney injury) (Acute) Date of Admission: 09/12/18 Date of Discharge: 09/14/18 - Primary Discharge Diagnosis Active and Suspected Problems (Last Reviewed 05/17/18 @ 08:35 by Sindhu Flaherty) Acute respiratory failure with hypoxia (Acute) COPD exacerbation (Acute) ANGLE (acute kidney injury) (Acute) - Secondary Discharge Diagnosis Chronic Problems (Last Reviewed 05/17/18 @ 08:35 by Sindhu Flaherty) Former tobacco use (Chronic) Carotid stenosis, bilateral (Chronic) Microcytic anemia (Chronic) Hyperlipidemia (Chronic) Hypertension (Chronic) History of kidney stones (Chronic) BPH (benign prostatic hyperplasia) (Chronic) Arthritis (Chronic) Hospital Course and Treatment Imaging Results: Clinical Impression(s) from Imaging Studies Chest X-Ray 09/12/18 22:40 IMPRESSION: Normal x-ray examination of the chest. Electronically Signed: Mc Nolasco MD at 22:55 EDT , Service support , Microbiology 09/13/18 01:15 Interface Orders Respiratory Panel (PCR) - Final 09/13/18 06:30 Urine, Clean Catch Streptococcus pneumoniae Antigen (M - Final 09/13/18 06:30 Urine, Clean Catch Legionella Antigen - Final 09/12/18 22:55 Mucosa - Nasopharyngeal Influenza Types A,B Direct FA (ROHIT) - Final Summary of Care Provided: Patient is on 83-year-old gentleman with past medical history significant for COPD presented with progressive shortness of breath. An assessment of acute hypoxic respiratory failure was made admitted to regular nursing for further management 1. Acute hypoxic respiratory failure secondary to COPD with acute exacerbation patient was admitted to regular nursing floor managed with aerosol treatment, antibiotics as well as systemic steroid with supplemental oxygen titrated to keep saturation greater than 90 2. Acute sepsis ruled out 3. Pneumonia ruled out 4. Microcytic anemia secondary to iron deficiency anemia as evidenced by result of patient's iron studies. An order was given for patient's stool to be guaiac. In addition patient will need to undergo subsequent evaluation with both upper and lower endoscopy. An appointment was set up with [facility] for patient to undergo outpatient endoscopic evaluation as part of m anagement of his anemia. Patient was also asked nonsteroidal anti-inflammatory medication (naproxen) this was discontinued on discharge 5. BPH patient is on Flomax continue 6. Hypertension-blood pressure controlled, home medications continued with dose adjustment as needed 7. Dyslipidemia-patient is on statin therapy, continued at home dose 8. Acute kidney injury on IV fluids with monitoring of electrolytes 9. Hematuria patient reports history of previous kidney stones resolved at the time of discharge 10. GERD patient is on PPI 11. History of bilateral carotid artery disease with no previous intervention 12. DVT prophylaxis patient had been started on heparin on admission however in view of above heparin was discontinued Patient Problems: Active and Suspected Problems (Last Reviewed 05/17/18 @ 08:35 by Sindhu Flaherty) Acute respiratory failure with hypoxia (Acute) COPD exacerbation (Acute) ANGLE (acute kidney injury) (Acute) Objective: GENERAL: cooperative HEENT: Atraumatic; EYES; Anicteric, Normal Conjunctiva NECK; supple, normal thyroid, RESPIRATORY: Diminished to auscultation bilaterally, CARDIOVASCULAR: Regular S1 S2, GI: soft, non-tender, normoactive bowel sounds, : No Renal angle tenderness; EXTREMITIES: No edema, no clubbing, no cyanosis. MUSCULOSKELETAL: No Joint Tenderness; NEURO: Awake; no lateralizing signs. SKIN: No Rash PSYCH; Normal affect - Physical Exam Vital Signs Temp Pulse Resp BP Pulse Ox 97.3 F L 67 18 117/70 99 09/14/18 03:22 09/14/18 07:32 09/14/18 03:22 09/14/18 03:22 09/14/18 03:22 Oxygen Flow Rate (L/min) 2 Oxygen Delivery Method Room Air Weight: 90.5 kg Body Mass Index (BMI) 24.3 Intake and Output for Last 24 Hours 09/12/18 09/13/18 09/14/18 23:59 23:59 23:59 Intake Total 3209 / 3209 2001 Output Total 250 / 250 Balance 3209 / 3209 1752 / 1752 Microbiology Past 72 Hours 09/13/18 01:15 Respiratory Panel (PCR) - Final Interface Orders 09/13/18 06:30 Streptococcus pneumoniae Antigen (M - Final Urine, Clean Catch 09/13/18 06:30 Legionella Antigen - Final Urine, Clean Catch 09/12/18 22:55 Influenza Types A,B Direct FA (ROHIT) - Final Mucosa - Nasopharyngeal Laboratory Tests Past 24 Hrs 09/14/18 09/14/18 05:02 05:02 WBC 14.6 H RBC 4.58 L Hgb 10.2 L Hct 32.7 L MCV 71.4 L MCH 22.3 L MCHC 31.2 L RDW 17.2 H RDW Differential 44.2 H Plt Count 127 L Differential Comment SCAN Sodium 141 Potassium 4.8 Chloride 107 Carbon Dioxide 31.0 Anion Gap 3 L BUN 19 H Creatinine 0.86 Estim Creat Clear Calc 78.50 Est GFR (MDRD) Af Amer 109 Est GFR (MDRD) Non-Af 90 BUN/Creatinine Ratio 22.0 H Glucose 170 H Calcium 8.2 L Magnesium 1.9 Discharge Diet: No Restrictions Discharge Activity: Return to Normal Activity Home Medications: Medications to take at Discharge Pravastatin [Pravachol] 20 mg PO DAILY 12/12/13 aspirin 81 mg tablet,delayed release 81 mg PO DAILY 05/17/18 brimonidine 0.1 % eye drops 1 drp OPHTHALMIC BID ml 05/17/18 finasteride 5 mg tablet 5 mg PO DAILY 05/17/18 omeprazole magnesium 20 mg tablet,delayed release 20 mg PO DAILY 05/17/18 tamsulosin 0.4 mg capsule 0.4 mg PO DAILY 05/17/18 timolol 0.25 % eye drops 1 drp OPHTHALMIC BID 05/17/18 Azithromycin 500 mg PO DAILY #3 tablet 09/14/18 Guaifenesin [Mucinex] 1,200 mg PO BID #14 tablet 09/14/18 Prednisone [Deltasone] 40 mg PO DAILY #8 tablet 09/14/18 Following Prescrptions Were Given to Patient: Azithromycin 500 mg PO DAILY #3 tablet Guaifenesin [Mucinex] 1,200 mg PO BID #14 tablet Prednisone [Deltasone] 40 mg PO DAILY #8 tablet Primary Care Physician: Marcos Moraes MD [Primary Care Provider] - Please follow up with your Primary Care Physician in: in 5-7 days Please Follow Up With: Shola Horne MD When: for outpatient Colonoscopy Disposition: Home Minutes spent on discharge:: 36 Medical Necessity - Tobacco Use Smoking Status: Former smoker Tobacco Use: Non-smoker Meaningful Use Info Meaningful Use Diagnoses (Choose all that apply): None applicable Code Visit Inpatient E&M: 15689 Disch Hosp
[2018-09-14] MEDS: BRIMONIDINE 0.2% 5ML BOTTLE 1 DRP OPHTHALMIC (08:52)
[2018-09-14] MEDS: Ferrous Gluconate 324 MG Tablet PO (08:53)
[2018-09-14] MEDS: Aspirin E.C. 81 MG Tablet PO (08:54)
[2018-09-14] MEDS: guaiFENesin 1,200 MG Tablet 1200 MG PO (08:54)
[2018-09-14] MEDS: Tamsulosin HCl 0.4 MG Capsule PO (08:54)
[2018-09-14] MEDS: Pantoprazole Sodium 20 MG Tablet PO (08:54)
[2018-09-14] MEDS: Finasteride 5 MG Tablet PO (08:55)
--- NOTE | 2018-09-14 10:33 | CASEMGMT ---
RENÉ CLEMENTS followed up with patient regarding outpatient therapy. Patient states that he does not feel he needs outpatient therapy at this time but will when he has a knee replacement. RENÉ CLEMENTS instructed patient that if he should change his mind after discharge, he can follow-up with his PCP and his family doctor can assist with setting up outpatient therapy. Patient voiced understanding and denied further needs at this time.
== END 2018-09-14 11:04 | disposition home or self-care (01) | DRG 189 ==
LOC: ED 22:44 → MS3 09-13 00:09
PROVIDERS: Admitting Provider Family Medicine; Emergency Provider Emergency Medicine; Family Provider Family Medicine; PCP Family Medicine; Visit Provider Internal Medicine
DX: J96.01 Acute respiratory failure with hypoxia (principal); N17.9 Acute kidney failure, unspecified; J44.1 Chronic obstructive pulmonary disease with (acute) exacerbation; D50.9 Iron deficiency anemia, unspecified; E78.5 Hyperlipidemia, unspecified; N40.0 Benign prostatic hyperplasia without lower urinary tract symptoms; Z87.442 Personal history of urinary calculi; Z87.891 Personal history of nicotine dependence; M19.90 Unspecified osteoarthritis, unspecified site; I10 Essential (primary) hypertension; R31.9 Hematuria, unspecified; K21.9 Gastro-esophageal reflux disease without esophagitis
CPT/HCPCS: 36415; 71045; 80048; 82607; 82728; 82746; 83540; 83550; 83605; 83735; 83880; 84484; 85025; 85027; 87040; 87070; 87077; 87186; 87205; 87449; 87633; 87804; 93005; 94640; 94667; 94668; 97162; 97166; 99285; 99406; J7030; A4216; J2405

== ENCOUNTER 2018-10-06 07:23 | Day surgery (SDC) | payer MEDICARE, SELFPAY ==
--- NOTE | 2018-09-21 02:49 | HP_ITS ---
Intake Vital Signs 09/21/18 Height 6 ft 4 in 09/21/18 Weight: 204 lb 1 oz 09/21/18 Body Mass Index (BMI) 24.8 09/21/18 Blood Pressure 116/69 09/21/18 Blood Pressure Location Rt brachial 09/21/18 Blood Pressure Position Sitting 09/21/18 Respiratory Rate 20 H 09/21/18 Pulse Rate 69 09/21/18 Pulse Ox 98 09/14/18 Body Mass Index (BMI) 24.3 Intake Visit Reasons: C-Scope Consult Chief Complaint: discuss colonoscopy Medication Specialist Required: No Is patient in pain?: No Allergies No Known Allergies Allergy (Verified 09/21/18 14:14) Medications Pravastatin [Pravachol] 20 mg PO DAILY 12/12/13 [History Confirmed 09/21/18] aspirin 81 mg tablet,delayed release 81 mg PO DAILY 05/17/18 [History Confirmed 09/21/18] brimonidine 0.1 % eye drops 1 drp OPHTHALMIC BID ml 05/17/18 [History Confirmed 09/21/18] finasteride 5 mg tablet 5 mg PO DAILY 05/17/18 [History Confirmed 09/21/18] omeprazole magnesium 20 mg tablet,delayed release 20 mg PO DAILY 05/17/18 [History Confirmed 09/21/18] tamsulosin 0.4 mg capsule 0.4 mg PO DAILY 05/17/18 [History Confirmed 09/21/18] timolol 0.25 % eye drops 1 drp OPHTHALMIC BID 05/17/18 [History Confirmed 09/21/18] Azithromycin 500 mg PO DAILY #3 tab 09/14/18 [Rx Confirmed 09/21/18] PFS Medical History Emphysema lung (Acute) Carotid stenosis, bilateral (Chronic) Glaucoma (Acute) OA (osteoarthritis) of hip (Acute) Microcytic anemia (Chronic) Hyperlipidemia (Chronic) Hypertension (Chronic) History of kidney stones (Chronic) Hematuria (Acute) BPH (benign prostatic hyperplasia) (Chronic) Arthritis (Chronic) Abnormal stress test (Acute) Surgical History Hx of right inguinal hernia repair (Acute) History of total right hip arthroplasty (Acute) History of prostate surgery (Acute) History of back surgery (Acute) Hx of lithotripsy (Acute) Hx of cystoscopy (Acute) Family History Mother Heart disease Social History Smoking Status: Former smoker how long ago did patient quit smokin days ago alcohol intake: never substance use type: does not use caffeine: Yes frequency: does not exercise HPI HPI HPI: JASSI COOPER, is a 83 M who presents to the office today for HPI HPI Surgical H&P: Yes HPI: JASSI COOPER is a 83 M who presents to the office today for iron deficiency anemia. Patient was recently admitted to the hospital with pneumonia and was found to have iron deficiency anemia. He denies any abdominal pain or gross blood in his stool. He says that he also occasionally has dysphagia with solid foods. His last colonoscopy was in 1987. ROS General General: Yes fatigue; no weight change, appetite, colon cancer, breast cancer or weakness HEENT HEENT: Yes eye surgery; no difficulty swallowing, eye injury, swollen glands or hoarseness Endo Endocrine: No thyroid disease, diabetes mellitus, thyroid cancer, Hair loss, heat intolerance or cold intolerance Musc Musculoskeletal: Yes back problems and arthritis; no rheumatoid arthritis, gout or joint pain Cardio Cardiovascular: No murmur, pacemaker, heart disease, atrial fibrillation, high blood pressure, heart attack, heart stent, palpitations, shortness of breat with exertion or chest pain Resp Respiratory: Yes shortness of breath, No sleep apnea, No cough, Yes COPD, No asthma, Yes emphysema, No wheezing Gastro Gastrointestinal: No abdominal pain, No nausea or vomiting, No diarrhea, Yes constipation, No blood in stool, Yes acid reflux, No hemorrhoids, No ulcers, No gallbladder problem, No black,tarry stools Rub[place] Hematologic: No blood thinners, No blood disorders, No bleeding, Yes anemia, No blood clots Neuro Neurologic: No weakness Exam Const General: cooperative Orientation: alert, oriented x3 Resp Effort & Inspection: normal respiratory effort Auscultation: clear to auscultation bilaterally Cardio Rate: regular rate Rhythm: regular rhythm Heart Sounds: no murmurs GI Inspection: non-distended Palpation: soft, hernia ventral, nontender Assessment & Plan Problems 1. Iron deficiency anemia, unspecified iron deficiency anemia type D50.9 Plan The patient has iron deficiency anemia. No gross blood in his stool. Recommend EGD and colonoscopy. Patient was recently worked up for carotid stenosis and is under observation. Patient sees Dr. Vidal for cardiology I explained endoscopy in detail to the patient. I explained the risks including but not limited to stroke or heart attack with anesthesia, perforation of the GI tract, bleeding, infection. I explained that any of these could necessitate further emergency surgery. The patient understands and all questions were answered sufficiently. The patient wishes to proceed with procedure. Shola Horne MD Pager: [facility] [address] [place] [address] [address] [place] [address] Office: Orders Orders: Colonoscopy Today D50.9 EGD Today D50.9 Coding Level of Care Code Off vis,new,level 3 Diagnoses Iron deficiency anemia, unspecified iron deficiency anemia type D50.9 ??Iron deficiency anemia type: unspecified iron deficiency 09/21/18 1409 <Electronically signed by Shola Horne MD> Date Shola Horne MD I have re-examined the patient. There are no clinical changes since date of exam.
[2018-09-21 14:49] VITALS: BMI 24.3
[2018-10-06 07:46] VITALS: BP 128/64; PULSE 77; RESP 18; TEMP 36.3; O2SAT 97; BMI 24.2
[2018-10-06 09:01] VITALS: BP 128/64; BP 97/58; PULSE 69; RESP 16; TEMP 36.5; O2SAT 97
--- NOTE | 2018-10-06 09:01 | OP.ENDO_ITS ---
10/06/2018 Marcos Moraes Re : Upper GI endoscopy procedure for Tom Hendrix Dimitry This procedure was performed on Saturday, October 06, 2018. My impressions and recommendations are as follows: Impressions : - Normal esophagus. - Normal stomach. - Normal examined duodenum. - Biopsies were taken with a cold forceps for Helicobacter pylori testing. Recommendations : - Discharge patient to home. - Resume previous diet. - Continue present medications. - Resume aspirin at prior dose tomorrow. My findings are described in the full procedure note, which is enclosed. If I can be of further assistance, please feel free to contact me at Doctor phone number(s): , Work: . Sincerely, Shola Horne MD 10/06/2018 9:01:19 AM This report has been signed electronically.
--- NOTE | 2018-10-06 09:03 | OP.ENDO_ITS ---
10/06/2018 Marcos Moraes Re : Colonoscopy procedure for Tom Hendrix Dimitry This procedure was performed on Saturday, October 06, 2018. My impressions and recommendations are as follows: Impressions : - One polyp in the distal transverse colon, removed with a hot snare. Resected and retrieved. - The examination was otherwise normal on direct and retroflexion views. - Diverticulosis in the sigmoid colon. Recommendations : - Discharge patient to home. - Resume previous diet. - Resume aspirin at prior dose tomorrow. - Await pathology results. - Repeat colonoscopy after studies are complete for surveillance based on pathology results. My findings are described in the full procedure note, which is enclosed. If I can be of further assistance, please feel free to contact me at Doctor phone number(s): , Work: . Sincerely, Shola Horne MD 10/06/2018 9:03:20 AM This report has been signed electronically.
[2018-10-06 09:05] VITALS: BP 128/64; BP 96/44; PULSE 66; RESP 18; O2SAT 96
[2018-10-06 09:10] VITALS: BP 128/64; BP 98/61; PULSE 68; RESP 16; O2SAT 98
--- NOTE | 2018-10-06 09:15 | EGD_PTH ---
PATIENT: JASSI COOPER LOC: EN U#:[id number] AGE/SX: 83/M ROOM: RE10/06/[address]: Dr. Shola Horne MD : [id number] BED: DIS: 10/06/2018 SPEC #: [id number] RECD: 10/06/18 09:16 STATUS: MELANIE LIVIA #: [id number] ANN: 10/06/18 09:[address]: Shola Horne DEPT: SURGICAL PATHOLOGY RECD BY: Milton Salcedo ENTERED: 10/06/18 14:29 SP TYPE: EGD BIOPSY OT DR: Dr. Marcos Moraes MD Tissues: A - Gastric mucous membrane B - Transverse colon Procedures: Surgery Specimen Level IV HEADER OPERATION: Colonoscopy, EGD ([facility] [place]) PRE-OP DIAGNOSIS: Iron deficiency anemia TISSUE SUBMITTED: A - Antrum, B - Transverse colon MICROSCOPIC DIAGNOSIS A. Gastric antrum, biopsy: Strips of benign superficial gastric mucosa. B. Transverse colon, biopsy: Polypoid fragment of colonic mucosa with focal crypt abscess and focal cryptitits. See comment. AM:theo 10/09/18 COMMENT A very focal area of crypt abscess is identified with adjacent focal acute cryptitis. The remainder of the mucosa shows focal hyperplastic change. Clinical correlation is suggested. MICROSCOPIC DESCRIPTION Slides are reviewed. GROSS DESCRIPTION A - Received in fixative is one container labeled with the patient's name and designated antrum biopsy. The specimen consists of two irregular fragments of light holm soft tissue that in aggregate measure 0.3 x 0.2 x <0.1 cm. The specimen is totally submitted in one cassette. B - Received in fixative is one container labeled with the patient's name and designated distal transverse colon polyp. The specimen consists of one irregular fragment of light holm soft tissue that measures 0.6 x 0.5 x 0.2 cm. The specimen is totally submitted in one cassette. / AM:theo 10/06/18 TC:2 CPT: 68241 x2
[2018-10-06 09:19] VITALS: BP 108/59; BP 128/64; PULSE 76; RESP 18; TEMP 36.6; O2SAT 98
[2018-10-06 09:55] VITALS: BP 128/64
== END 2018-10-06 09:56 | disposition home or self-care (01) ==
LOC: EN 07:23 → AC 07:24
PROVIDERS: Family Provider Family Medicine; PCP Family Medicine; Referring Provider Family Medicine; Visit Provider Surgery
PROC: 0DJD8ZZ Inspection of Lower Intestinal Tract, Via Natural or Artificial Opening Endoscopic (ICD-10-PCS; CPT 45378; principal; 2018-10-06 09:10)
DX: K62.89 Other specified diseases of anus and rectum (principal); K57.30 Diverticulosis of large intestine without perforation or abscess without bleeding; D50.9 Iron deficiency anemia, unspecified; M19.90 Unspecified osteoarthritis, unspecified site; E78.5 Hyperlipidemia, unspecified; I10 Essential (primary) hypertension; N40.0 Benign prostatic hyperplasia without lower urinary tract symptoms; K21.9 Gastro-esophageal reflux disease without esophagitis; I25.10 Atherosclerotic heart disease of native coronary artery without angina pectoris; J44.9 Chronic obstructive pulmonary disease, unspecified; Z87.442 Personal history of urinary calculi; Z87.891 Personal history of nicotine dependence; Z79.82 Long term (current) use of aspirin; Z79.899 Other long term (current) drug therapy
CPT/HCPCS: 43239; 45380; 88305; J7120; J2405

== ENCOUNTER → 2019-01-25 | Outpatient (CLI) | payer MEDICARE, SELFPAY ==
[2019-01-03 13:35] VITALS: BMI 25.2
--- NOTE | 2019-01-25 09:40 | CDU_ITS ---
Reason For Study: Carotid stenosis bilateral Rt. Velocities/BP Lt. Velocities/BP Prox CCA 87.6/12.6 cm/sec. Prox CCA 108.4/7.7 cm/sec. Mid CCA 58.1/11.4 cm/sec. Mid CCA 77.7/5.3 cm/sec. Dist CCA 69.1/15.1 cm/sec. Dist CCA 47.5/4.1 cm/sec. Prox ICA 77.7/23.7 cm/sec. Prox ECA 196/7.2 cm/sec. Mid ICA 184.7/47.4 cm/sec. Lt. Vert. 61.9/25.6 cm/sec. Dist ICA 166.7/39.7 cm/sec. Rt. ICA/CCA = 2.7. Prox ECA 102.8/29.8 cm/sec. Rt. Vert. 48.7/16.8 cm/sec. Right Extracranial There is heterogeneous, irregular atherosclerotic plaque noted in the right common carotid artery. There is heterogeneous, irregular atherosclerotic plaque noted in the right internal carotid artery. There is no significant atherosclerotic plaque noted in the right external carotid artery. Antegrade flow is noted in the right vertebral artery. Left Extracranial There is heterogeneous, irregular atherosclerotic plaque noted in the left common carotid artery. There is heterogeneous, irregular atherosclerotic plaque noted in the left internal carotid artery. The left internal carotid artery is occluded. There is no significant atherosclerotic plaque noted in the left external carotid artery. Antegrade flow is noted in the left vertebral artery. Procedure Carotid Duplex 89128. Exam performed in department. 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
== END | disposition home or self-care (01) ==
LOC: CVS 09:39
PROVIDERS: Family Provider Family Medicine; PCP Family Medicine; Referring Provider Surgery; Visit Provider Surgery
DX: I65.23 Occlusion and stenosis of bilateral carotid arteries (principal)
CPT/HCPCS: 93880

== ENCOUNTER → 2020-03-26 12:51 | Outpatient (CLI) | payer MEDICARE, SELFPAY ==
[2019-07-24 14:14] VITALS: BMI 25.4
--- NOTE | 2020-03-26 12:56 | ART_ITS ---
Reason For Study: PVD Procedure A bilateral lower extremity continuous wave Doppler with analog waveform analysis,segmental pressures,and ankle brachial indexes with exercise. Left Segmental Pressures Left brachial= 133mmHg. Left posterior tibial artery = 133mmHg. Left dorsalis pedis artery = 137mmHg. Left digit = 104 mmHg. The left dorsalis pedis waveforms are biphasic. The left posterior tibial artery waveforms are biphasic. Right Segmental Pressures Right brachial= 136mmHg. Right posterior tibial artery = 164mmHg. Right dorsalis pedis artery = 157mmHg. Right digit = 115 mmHg. The right dorsalis pedis waveforms are biphasic. The right posterior tibial artery waveforms are triphasic. Indices The right ankle brachial index by the dorsalis pedis is 1.15. The right ankle brachial index by the posterior tibial artery is 1.21. The right digital-brachial index is 0.85. The left ankle brachial index by the dorsalis pedis is 1.01. The left ankle brachial index by the posterior tibial artery is 0.98. The left wrist-brachial index is 0.76. Interpretation Summary No significant occlussive disease at rest with triphasic flow on the riht and biphasic flow on the left. TRAVON 1.21 and 1.01 and no drop with short walk with cane. Ordering Physician: David Meier Referring Physician: Marcos Moraes Performed By: Elena Edge RVT
--- NOTE | 2020-03-26 12:56 | CDU_ITS ---
Reason For Study: Carotid stenosis Rt. Velocities/BP Lt. Velocities/BP Prox CCA 86.5/12.1 cm/sec. Prox CCA 90 cm/sec. Mid CCA 69.5/12.1 cm/sec. Mid CCA 64.2 cm/sec. Dist CCA 68.2/13.4 cm/sec. Dist CCA 47 cm/sec. Prox ICA 74.7/22.6 cm/sec. Known ICA Occlusion. Mid ICA 336.5/90.4 cm/sec. Prox ECA 202.8/6 cm/sec. Dist ICA 166.5/44.8 cm/sec. Lt. Vert. 87.6/28.6 cm/sec. Rt. ICA/CCA = 4.84. Prox ECA 111.2 cm/sec. Rt. Vert. 57.2/18.8 cm/sec. Right Extracranial There is heterogeneous, irregular atherosclerotic plaque noted in the right common carotid artery. There is heterogeneous, irregular atherosclerotic plaque noted in the right internal carotid artery. There is homogeneous, smooth atherosclerotic plaque noted in the right external carotid artery. Antegrade flow is noted in the right vertebral artery. Left Extracranial There is heterogeneous, irregular atherosclerotic plaque noted in the left common carotid artery. The left internal carotid artery is occluded. There is homogeneous, smooth atherosclerotic plaque noted in the left external carotid artery. Antegrade flow is noted in the left vertebral artery. Procedure Carotid Duplex 20667. This is a Carotid Duplex examination using B-mode, color flow and specral Doppler. Exam performed in department. Interpretation Summary Severe (>70%) stenosis right extracranial internal carotid. The left internal carotid artery appears to be totally occluded. Flow within the vertebral arteries is antegrade bilaterally. Ordering Physician: David Meier Referring Physician: Marcos Moraes Performed By: Elena Edge RVT
== END ==
PROVIDERS: PCP Family Medicine; Referring Provider Surgery Vascular Surgery; Visit Provider Surgery Vascular Surgery
DX: I65.23 Occlusion and stenosis of bilateral carotid arteries (principal); I73.9 Peripheral vascular disease, unspecified
CPT/HCPCS: 93880; 93924

== ENCOUNTER → 2021-02-18 14:10 | Outpatient (CLI) | payer MEDICARE, SELFPAY ==
--- NOTE | 2021-02-18 14:16 | CT_ITS ---
STUDY: CT CHEST WITHOUT CONTRAST REASON FOR EXAM: Male, 85 years old. TB LUNG. Emphysema. RADIATION DOSAGE (If Supplied By Facility): CTDIvol = ( 12.58 ) mGy, DLP = ( 503.18 ) mGycm TECHNIQUE: Transaxial imaging was performed without the administration of intravenous contrast material. Multiplanar coronal and sagittal images were reformatted. Individualized dose optimization techniques were used for this CT. COMPARISON: None. FINDINGS: Small benign-appearing bilateral axillary lymph nodes. There is an 8.3 mm x 8.9 mm nodule in the left lung apex medially. There is evidence of scarring in the right lung apex with the emphysematous changes and centrilobular emphysema. No focal consolidation is seen. There is no demonstrated pleural abnormality. There are calcifications of the coronary arteries. There are multiple small lymph nodes within the mediastinum, which are normal in size and morphology most compatible with reactive lymph hyperplasia. Normal hilar regions. Normal unenhanced pulmonary arteries. There is atherosclerotic calcification of the aortic arch with tortuosity and elongation of the aortic arch and descending thoracic aorta. Normal osseous structures. There is no demonstrated abnormality of the visualized upper abdomen. CT/Chest without Contrast IMPRESSION: Emphysematous changes worse in the upper lobes as well as a 8.3 mm x 8.9 mm nodule in the medial aspect of the left lung apex. Correlation with a PET scan is recommended. Electronically Signed: Mehrdad Delgado MD at 14:49 EDT , Service support ,
== END ==
PROVIDERS: PCP Family Medicine; Referring Provider Internal Medicine Infectious Disease; Visit Provider Internal Medicine Infectious Disease
DX: Z22.7 Latent tuberculosis (principal)
CPT/HCPCS: 71250

== ENCOUNTER 2021-05-29 09:02 | Outpatient (CLI) | payer MEDICARE, SELFPAY ==
--- NOTE | 2021-05-29 09:07 | ECHOD_ITS ---
Reason For Study: MURMUR Procedure This was a 2D Doppler, Color Flow transthoracic echocardiogram. Exam performed in department. PT taken to ED due to BP after discussion with Bethanie MERRITT @ [facility]. Left Ventricle Normal LV size. Left ventricular systolic function is normal. The estimated ejection fraction is 55 %. Stage 1 diastolic dysfunction. No regional wall motion abnormalities noted. Right Ventricle Normal RV size. Normal systolic function. Atria Normal left atrium. Normal right atrium. Mitral Valve Normal mitral valve. Mild (1+) eccentric mitral valve insufficiency. Tricuspid Valve Normal tricuspid valve. Mild (1+) tricuspid valve insufficiency. Pulmonary artery systolic pressure is 36 mmHg. Aortic Valve Trisinus/trileaflet aortic valve. Mild focal aortic valve calcification. Peak aortic valve gradient 24 mmHg. Mean aortic valve gradient 14 mmHg. Mild aortic stenosis. Mild (1+) aortic valve insufficiency. Pulmonic Valve Normal pulmonic valve. Great Vessels Calcified aortic root. The pulmonary artery is normal size. Normal inferior vena cava. Pericardium/Pleural No pericardial effusion. MMode/2D Measurements & Calculations LVIDd: 4.7 cm IVSd: 1.3 cm LVOT diam: 2.1 cm LVIDs: 3.6 cm LVPWd: 1.1 cm LVOT area: 3.5 cm2 RVDd: 3.2 cm FS: 24.2 % Ao root diam: 2.9 cm LAV(MOD-bp): 59.0 ml LA A4 area: 21.4 cm2 LAV(MOD-bp) Indexed: 26.8 ml/m2 LAV(MOD-sp2): 49.5 ml LAV(MOD-sp4): 61.8 ml LA dimension(2D): 3.6 cm RA A4 area: 16.3 cm2 Time Measurements MV dec time: 0.29 sec Doppler Measurements & Calculations MV E max jez: 68.6 cm/sec Lat Peak E' Jez: 7.2 cm/sec Med Peak E' Jez: 6.0 cm/sec MV A max jez: 94.8 cm/sec E/E' lat: 9.5 E/E' med: 11.4 MV E/A: 0.72 Ao V2 max: 246.6 cm/sec AI max jez: 376.7 cm/sec LV V1 max: 94.3 cm/sec Ao max P.4 mmHg AI max P.9 mmHg LV V1 max P.6 mmHg Ao V2 mean: 180.5 cm/sec AI dec slope: 174.4 cm/sec2 LV V1 mean P.8 mmHg Ao mean P.3 mmHg AI P1/2t: 632.6 msec LV V1 mean: 63.9 cm/sec Ao V2 VTI: 54.1 cm LV V1 VTI: 21.0 cm HESHAM(I,D): 1.4 cm2 HESHAM(V,D): 1.3 cm2 SV(LVOT): 73.2 ml PA V2 max: 125.0 cm/sec TR max jez: 279.5 cm/sec TR max P.3 mmHg ECHO/Echo Complete Interpretation Summary Normal LV size. Left ventricular systolic function is normal. The estimated ejection fraction is 55 %. Stage 1 diastolic dysfunction. Mean aortic valve gradient 14 mmHg. Mild aortic stenosis. Ordering Physician: Danny Ty Referring Physician: David Meier; Marcos Moraes Performed By: Annika Vaughn, ARMEN, RVT
--- NOTE | 2021-05-29 09:08 | CDU_ITS ---
Reason For Study: Carotid stenosis Rt. Velocities/BP Lt. Velocities/BP Prox CCA 108.6/13.4 cm/sec. Prox CCA 108.2/9.4 cm/sec. Mid CCA 77.3/12.1 cm/sec. Mid CCA 82.7 cm/sec. Dist CCA 61.7/9.5 cm/sec. Dist CCA 70 cm/sec. Prox ICA 104.8/31.1 cm/sec. Known ICA Occlusion. Mid ICA 322.6/87.4 cm/sec. Prox ECA 158.7 cm/sec. Dist ICA 169.7/36.5 cm/sec. Lt. Vert. 87.6/20 cm/sec. Rt. ICA/CCA = 4.17. Prox ECA 139.4 cm/sec. Rt. Vert. 47.6/13.5 cm/sec. Right Extracranial There is heterogeneous, irregular atherosclerotic plaque noted in the right common carotid artery. There is heterogeneous, irregular atherosclerotic plaque noted in the right internal carotid artery. There is heterogeneous, irregular atherosclerotic plaque noted in the right external carotid artery. Antegrade flow is noted in the right vertebral artery. Left Extracranial There is heterogeneous, smooth atherosclerotic plaque noted in the left common carotid artery. There is heterogeneous, irregular atherosclerotic plaque noted in the left internal carotid artery. The left internal carotid artery is occluded. There is heterogeneous, irregular atherosclerotic plaque noted in the left external carotid artery. Antegrade flow is noted in the left vertebral artery. Procedure Carotid Duplex 11808. This is a Carotid Duplex examination using B-mode, color flow and specral Doppler. Exam performed in department. VL/Carotid Duplex Ultrasound Interpretation Summary Severe (>70%) stenosis right extracranial internal carotid. The left internal c arotid artery appears to be totally occluded. Flow within the vertebral arteries is antegrade bilater ally. Ordering Physician: David Meier Referring Physician: Marcos Moraes Performed By: Elena Edge RVT
--- NOTE | 2021-05-29 09:08 | ART_ITS ---
Reason For Study: PVD Procedure A bilateral lower extremity continuous wave Doppler with analog waveform analysis,segmental pressures,and ankle brachial indexes without exercise. Left Segmental Pressures Left brachial= 79mmHg. Left calf = 84mmHg. Left posterior tibial artery = 76mmHg. Left dorsalis pedis artery = 73mmHg. Left digit = 45 mmHg. The left dorsalis pedis waveforms are biphasic. The left posterior tibial artery waveforms are biphasic. Right Segmental Pressures Right brachial= 84mmHg. Right posterior tibial artery = 111mmHg. Right dorsalis pedis artery = 97mmHg. Right digit = 55 mmHg. The right dorsalis pedis waveforms are biphasic. The right posterior tibial artery waveforms are biphasic. Indices The right ankle brachial index by the dorsalis pedis is 1.15. The right ankle brachial index by the posterior tibial artery is 1.32. The right digital-brachial index is 0.65. The left ankle brachial index by the dorsalis pedis is 0.87. The left ankle brachial index by the posterior tibial artery is 0.97. The left digital-brachial index is 0.54. . Did not walk patient due to low BP. Manual BP of 80/42. Called Bethanie MERRITT at [facility] and was advised to take patient to ED for fluids. VL/Lower Ext Art Exam w/o Exercis Interpretation Summary Right leg with triphasic flow and an TRAVON of 1.32. Left leg with biphasic flow a nd an TRAVON 0.9. Digit brachial index of 0.65 and 0.54. Ordering Physician: David Meier Referring Physician: Marcos Moraes Performed By: Elena Edge RVT
== END 2021-05-29 23:59 | disposition short-term general hospital (02) ==
PROVIDERS: PCP Family Medicine; Referring Provider Surgery Vascular Surgery; Visit Provider Surgery Vascular Surgery
DX: I65.23 Occlusion and stenosis of bilateral carotid arteries (principal); I73.9 Peripheral vascular disease, unspecified; I47.2 Ventricular tachycardia; R01.1 Cardiac murmur, unspecified; R42 Dizziness and giddiness; I65.22 Occlusion and stenosis of left carotid artery; I10 Essential (primary) hypertension; E78.5 Hyperlipidemia, unspecified
CPT/HCPCS: 93306; 93880; 93923

== ENCOUNTER 2021-05-29 10:39 | Emergency (ER) | payer MEDICARE, SELFPAY ==
[2021-05-29 10:40] VITALS: BP 100/57; PULSE 60; RESP 18; TEMP 36.2; O2SAT 99; BMI 25.4
[2021-05-29 10:58] VITALS: PULSE 55; RESP 17; O2SAT 100
--- NOTE | 2021-05-29 11:01 | EKG12_ITS ---
Test Reason : WEAKNESS Blood Pressure : / mmHG Vent. Rate : 051 BPM Atrial Rate : 051 BPM P-R Int : 170 ms QRS Dur : 098 ms QT Int : 446 ms P-R-T Axes : 024 015 -14 degrees QTc Int : 411 ms Sinus bradycardia Otherwise normal ECG Confirmed by JAK GUPTA, MELL ([id number]), make up editor MAXWELL LION ([id number]) on 06/01/2021 10:40:59 A M Referred By: Confirmed By:ELISE BENEDICT MD
[2021-05-29 11:03] VITALS: BP 111/57; PULSE 53; RESP 16; TEMP 36.2; O2SAT 100
[2021-05-29 11:10] VITALS: BP 108/58; BP 113/58; BP 132/67; PULSE 53; PULSE 54; PULSE 61
[2021-05-29 11:19] LABS: Absolute Lymphocyte Count 1.68 X10^3/uL (0.83-4.51); Absolute Neutrophil Count 1.7 X10^3/uL (2.0-7.7); Basophil# 0.02 X10^3/uL; Basophil% 0.5 % (0-1); Eosinophil# 0.05 X10^3/uL; Eosinophils% 1.2 % (0-5); Hematocrit 35.3 % (40-54); Hemoglobin 10.7 g/dL (13.0-16.5); Lymphocyte # 1.68 X10^3/ul (0.83-4.51); Lymphocyte % 41.5 % (19-41); Mean Corp Hgb Conc 30.3 g/dL (32-36); Mean Corpuscular Hgb 22.2 pg (27.0-32.0); Mean Corpuscular Volume 73.2 fL (80-94); Mean Platelet Vol. 11.5 fl (6.2-12.0); Monocyte# 0.63 X10^3/uL; Monocyte% 15.6 % (0-10); NRBC Flagged by Analyzer 0 % (0-5); Neutrophil # 1.66 X10^3/uL (2.7-7.7); Platelet Count 159 K/mm3 (150-450); RBC Distribution Width CV 17.3 % (11.6-14.6); RBC Distribution Width SD 45.5 fl (35.1-43.9); Red Blood Count 4.82 M/mm3 (4.6-6.2); White Blood Count 4.1 K/mm3 (4.4-11.0)
[2021-05-29 11:34] LABS: Anion Gap 3 (5-15); BUN 23 mg/dL (7-18); BUN/Creat Ratio 16.5 RATIO (10-20); Calcium,Total 8.7 mg/dL (8.5-10.1); Chloride 106 mmol/L (98-107); Creatinine, Serum 1.39 mg/dL (0.70-1.30); EST Glomerular Filtration Rate 51 mL/min (>60); Est Glom Filt Rate - Afr Amer 62 mL/min (>60); Estimated Creatinine Clearance 44.35 ml/min; Glucose 109 mg/dL (74-106); Potassium 3.7 mmol/L (3.5-5.1); Sodium Level 140 mmol/L (136-145)
--- NOTE | 2021-05-29 11:45 | EDS_ITS ---
HPI History of Present Illness Chief Complaint: Weakness Detail of Chief Complaint: Low blood pressure per . Patient has no complaints Informant: patient and spouse/S.O. Onset/Context/Timing Onset: - (Low blood pressure reading noted at specialist office) Context: - (Unknown) Timing: - (Unknown since patient asymptomatic) Quality: Low blood pressure per spouse. Patient states he has neck pain and reason Location: Chronic neck pain otherwise not applicable Current Severity: Gone Maximum Severity: Mild Worsened by: Possibly upright position will order orthostatic vitals Relieved by: Not applicable Associated Symptoms Associated Symptoms: Patient has no complaints other than chronic neck pain Narrative Narrative: Patient is an elderly male with history of nonsustained V. 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 He does have history of hypertension and hyperlipidemia. He has not t aken additional meds by accident. He denies headache, visual, ocular auditory symptoms. Denies trouble with speech or swallowing. He denies cardiac symptoms. He denies respiratory symptoms. He denies abdominal pain, vomiting diarrhea. He denies black or maroon-colored stool. He denies urologic symptoms. He denies paresthesia or anesthesia. He denied lightheadedness with standing. Prior similar symptoms: No Recent Illness/Hospitalization: No [facility] Medical History (Updated 05/29/21 @ 12:[address] Remi Huitron MD) Abnormal stress test Acute respiratory failure with hypoxia ANGLE (acute kidney injury) Arthritis BPH (benign prostatic hyperplasia) Emphysema lung Essential (primary) hypertension Former tobacco use Glaucoma Hematuria History of kidney stones Hyperlipidemia Left carotid artery stenosis Microcytic anemia NSVT (nonsustained ventricular tachycardia) OA (osteoarthritis) of hip Peripheral arterial disease Home Medications aspirin 81 mg tablet,delayed release 81 mg PO DAILY 05/17/18 [History Last Taken 10/01/18] brimonidine 0.1 % eye drops 1 drp OPHTHALMIC BID ml 05/17/18 [History Last Taken 09/12/18 08:00 1 drop] finasteride 5 mg tablet 5 mg PO DAILY 05/17/18 [History Last Taken 09/12/18 0 8:00 5 mg] omeprazole magnesium 20 mg tablet,delayed release 20 mg PO DAILY 05/17/18 [History Last Taken 09/12/18 08:00 20 mg] tamsulosin 0.4 mg capsule 0.4 mg PO DAILY 05/17/18 [History Last Taken 09/12/18 08:00] timolol 0.25 % eye drops 1 drp OPHTHALMIC BID 05/17/18 [History Last Taken 09/12/18 08:00 1 drop] atorvastatin 40 mg tablet 40 mg PO DAILY #90 tab 01/03/19 [Rx Last Taken Unknown] ketoconazole 2 % shampoo TOPICAL #240 ml 01/03/19 [History Last Taken Unknown] nystatin 100,000 unit/gram topical cream TOPICAL #45 g 01/03/19 [History Last Taken Unknown] clopidogrel 75 mg tablet 75 mg PO DAILY #90 tab 01/31/20 [Rx Last Taken Unknown] atenolol 25 mg tablet 12.5 mg PO DAILY tab 05/29/21 [History Last Taken Unknown] Allergy/AdvReac Type Severity Reaction Status Date / Time No Known Allergies Allergy Verified 05/29/21 10:43 Family History Mother Heart disease Surgical History H/O colonoscopy with polypectomy (2019) History of back surgery History of prostate surgery History of total right hip arthroplasty Hx of cystoscopy Hx of lithotripsy Hx of right inguinal hernia repair Social History (Updated 05/29/21 @ 11:[address] Remi Huitron MD) household members: spouse Smoking Status: Former smoker how long ago did patient quit smokin years ago alcohol intake: never substance use type: does not use caffeine: Yes frequency: does not exercise ROS ROS ED Constitutional Constitutional ED: Denies chills, fever(s), subjective, sweats or weight loss Eyes Eyes: Denies blurry vision, change in vision or diplopia ENT ENT ED: Denies ear pain, rhinorrhea or sore throat Cardiovascular Cardiovascular: Denies chest pain, orthopnea, palpitations, paroxysmal nocturnal dyspnea or racing heartbeat Respiratory/Chest Respiratory/Chest: Denies cough, dyspnea, dyspnea on exertion, orthopnea, paroxysmal nocturnal dyspnea or sputum Gastrointestinal Gastrointestinal: Denies abdominal pain, diarrhea, melena, nausea or vomiting Genitourinary Genitourinary ED: Denies dysuria, hematuria or urinary frequency Musculoskeletal Musculoskeletal: Reports neck pain; Denies arthralgias, back pain or myalgias Integumentary Denies rash Neurologic Neurologic: Denies headache(s), paresthesias or weakness Endocrine Endocrinology: Denies polydipsia, polyphagia or polyuria Hematologic/Lymphatic Hematologic/Lymphatic: Denies easy bleeding or easy bruising EXAM Physical Exam Const Vital Signs: 05/29/21 10:40 05/29/21 10:58 05/29/21 11:03 Temperature 97.1 F L 97.1 F L Temperature Source Temporal Temporal Pulse Rate 60 55 L 53 L Pulse Rate [Lying] Pulse Rate [Sitting] Pulse Rate [Standing] Respiratory Rate 18 17 16 Respiratory Effort Normal Non-Labored Respiratory Pattern Normal Blood Pressure 100/57 L 111/57 L Blood Pressure [Lying] Blood Pressure [Sitting] Blood Pressure [Standing] Blood Pressure Mean 71 75 Blood Pressure Mean [Lying] Blood Pressure Mean [Sitting] Blood Pressure Mean [Standing] Pulse Ox 99 100 100 Oxygen Delivery Method Room Air Room Air Room Air 05/29/21 11:10 Temperature Temperature Source Pulse Rate Pulse Rate [Lying] 54 L Pulse Rate [Sitting] 53 L Pulse Rate [Standing] 61 Respiratory Rate Respiratory Effort Respiratory Pattern Blood Pressure Blood Pressure [Lying] 113/58 L Blood Pressure [Sitting] 108/58 L Blood Pressure [Standing] 132/67 H Blood Pressure Mean Blood Pressure Mean [Lying] 76 Blood Pressure Mean [Sitting] 74 Blood Pressure Mean [Standing] 88 Pulse Ox Oxygen Delivery Method Negative. Positive well nourished and well developed General Appearance ED: well developed, NAD and other Patient is lying comfortably in bed in no obvious distress. ; Negative for cyanotic, diaphoretic or pallor HEENT Reports TM's clear and moist mucous membranes HEENT Narrative: Ears are normal. Nares patent. Uvula is midline. There is no erythema. Negative for trauma or tenderness Tympanic Membrane ED: Yes TM's clear Eyes PERRL and EOMs intact bilaterally General Eye ED: Negative for pale conjunctiva or scleral icterus Neck no lymphadenopathy, supple and no JVD General: Negative for tenderness Resp normal respiratory effort and clear to auscultation bilaterally Cardio regular rate, regular rhythm, S1 normal heart sound, S2 normal heart sound and no murmurs GI normal to inspection, nondistended, normoactive bowel sounds, non-tender and non-distended Palpation: soft Back/Spine no CVA tenderness Cervical Spine: Negative for cervical spine tenderness Thoracic Spine / Upper Back: Negative for thoracic spinal tenderness or paraspinal muscle tenderness Lumbar Spine / Lower Back: Negative for lumbar spinal tenderness Extremity normal to inspection Extremity Narrative: There is no asymmetry, swelling, discoloration, leg vein distention, palpable cords or tenderness along the distribution of the deep venous system. General Extremety ED: Negative for edema or tenderness General Extremity: Negative for edema Neuro oriented x3, CN's II-XII intact bilaterally and no sensory deficits noted Sensorium / Orientation: alert Motor Exam: strength 5/5 throughout Psych mental status grossly normal Skin no rashes or lesions noted and no wounds General Skin Exam: Negative for jaundice or pallor MDM MDM MDM Narrative Medical decision making narrative: Patient may have autonomic dysfunction or possible dehydration or GI bleeds. Patient has no symptoms. This may be an erroneous reading. The first blood pressure reading was low. Repeat is normal. Orthostatics were performed and negative. EKG was obtained to rule out acute ischemia. CBC to assess H&H and basic metabolic panel to assess BUN to creatinine ratio. If elevated would either suggest dehydration or GI bleed. Lab Data Attestation: I reviewed the patient's lab results. Lab results narrative: Patient has microcytic anemia. We will compare to prior. Basic metabolic panel is remarkable for elevated creatinine of 1.39. BUN to creatinine ratio is less than 20. H&H is unchanged from prior. Electrolyte panel is unchanged from prior. Since patient is no longer hypotensive and he is asymptomatic will discharge to home. Labs: Laboratory Results - last 24 hr 05/29/21 05/29/21 11:04 11:04 WBC 4.1 L RBC 4.82 Hgb 10.7 L Hct 35.3 L MCV 73.2 L MCH 22.2 L MCHC 30.3 L RDW Std Deviation 45.5 H RDW Coeff of Aris 17.3 H Plt Count 159 MPV 11.5 Immature Gran % (Auto) 0.200 Neut % (Auto) 41.0 L Lymph % (Auto) 41.5 H [place] % (Auto) 15.6 H Eos % (Auto) 1.2 Baso % (Auto) 0.5 Absolute Neuts (auto) 1.7 L Absolute Lymphs (auto) 1.68 Nucleated RBC % 0 Sodium 140 Potassium 3.7 Chloride 106 Carbon Dioxide 31.0 Anion Gap 3 L BUN 23 H Creatinine 1.39 H Estim Creat Clear Calc 44.35 Est GFR (MDRD) Af Amer 62 Est GFR (MDRD) Non-Af 51 L BUN/Creatinine Ratio 16.5 Glucose 109 H Calcium 8.7 EKG Initial EKG: Attestation: I personally reviewed and interpreted this EKG as follows: Interpretation: Sinus Bradycardia (Ventricular rate is 51. TX interval is 170 ms. QRS duration 98 ms. QT duration 446 ms. [place] is normal. Other than the bradycardia which is probably due to the beta-carmine the EKG is normal.) Discharge Plan Triage Chief Complaint: Weakness ED Provider: Remi Huitron Dx/Rx/DC Orders Clinical Impression: Blood pressure, low, incidental finding, Bradycardia, sinus, Anemia, unspecified, Chronic kidney insufficiency, Chronic neck pain Instructions: Anemia, ED Bradycardia, ED Low Blood Pressure, All Causes Prescriptions: No Action finasteride [Proscar] 5 mg tablet 5 mg PO DAILY RF: 0 tamsulosin [Flomax] 0.4 mg capsule 0.4 mg PO DAILY RF: 0 Alphagan P 0.1 % drops 1 drp OPHTHALMIC BID RF: 0 Betimol 0.25 % drops 1 drp OPHTHALMIC BID RF: 0 Prilosec OTC 20 mg tablet,delayed release (DR/EC) 20 mg PO DAILY RF: 0 aspirin [Adult Low Dose Aspirin] 81 mg tablet,delayed release (DR/EC) 81 mg PO DAILY RF: 0 ketoconazole 2 % shampoo TOPICAL Qty: 240 RF: 0 nystatin 100,000 unit/gram cream TOPICAL Qty: 45 RF: 0 atorvastatin 40 mg tablet 40 mg PO DAILY Qty: 90 RF: 5 clopidogrel 75 mg tablet 75 mg PO DAILY Qty: 90 RF: 3 atenolol 25 mg tablet 12.5 mg PO DAILY RF: 0 Primary Care Provider: Marcos Moraes Referrals: Marcos Moraes MD [Primary Care Provider] - 3-5 Days Disposition Disposition: Home, Self Care
--- NOTE | 2021-05-29 12:36 | ED.RN ---
pt reports epigastric pain and burping during pt discharge. dr. rivero informed, gi cocktail ordered.
[2021-05-29] MEDS: Mag Hydrox/Al Hydrox/Simeth 30 ML UDC PO (12:37)
[2021-05-29 12:55] VITALS: PULSE 61; RESP 18; O2SAT 100
--- NOTE | 2021-05-29 12:56 | ED.RN ---
pt reports improved indigestion. dr rivero approves pt for d/c. pt educated on d/c instructions and denies any further questions.
== END 2021-05-29 12:56 | disposition home or self-care (01) ==
PROVIDERS: Emergency Provider Emergency Medicine; PCP Family Medicine; Visit Provider Emergency Medicine
DX: I95.9 Hypotension, unspecified (principal); R00.1 Bradycardia, unspecified; D64.9 Anemia, unspecified; I12.9 Hypertensive chronic kidney disease with stage 1 through stage 4 chronic kidney disease, or unspecified chronic kidney disease; N18.9 Chronic kidney disease, unspecified; G89.29 Other chronic pain; M54.2 Cervicalgia; E78.5 Hyperlipidemia, unspecified; N40.0 Benign prostatic hyperplasia without lower urinary tract symptoms; Z87.891 Personal history of nicotine dependence; Z87.442 Personal history of urinary calculi; Z79.82 Long term (current) use of aspirin; Z79.899 Other long term (current) drug therapy
CPT/HCPCS: 80048; 85025; 93005; 93306; 93880; 93923; 99285

== ENCOUNTER → 2022-07-12 | Outpatient (CLI) | payer MEDICARE, SELFPAY ==
--- NOTE | 2022-07-12 09:00 | CDU_ITS ---
Reason For Study: Carotid Stenosis Rt. Velocities/BP Lt. Velocities/BP Prox CCA 68.3/18.2 cm/sec. Prox CCA 59.8/6.0 cm/sec. Mid CCA 57.9/12.6 cm/sec. Mid CCA 38.1/5.0 cm/sec. Dist CCA 50.0/12.3 cm/sec. Dist CCA 40.9/6.0 cm/sec. Prox ICA 83.9/22.3 cm/sec. Known ICA Occlusion. Mid ICA 358.2/107.1 cm/sec. Prox ECA 145.5/9.4 cm/sec. Dist ICA 233.7/59.2 cm/sec. Lt. Vert. 67.6/21.4 cm/sec. Rt. ICA/CCA = 6.2. Prox ECA 86.3/17.3 cm/sec. Rt. Vert. 42.1/13.5 cm/sec. Right Extracranial There is heterogeneous, irregular atherosclerotic plaque noted in the right common carotid artery. There is heterogeneous, irregular atherosclerotic plaque noted in the right internal carotid artery. There is heterogeneous, irregular atherosclerotic plaque noted in the right external carotid artery. Antegrade flow is noted in the right vertebral artery. Left Extracranial There is homogeneous, smooth atherosclerotic plaque noted in the left common carotid artery. There is heterogeneous, irregular atherosclerotic plaque noted in the left internal carotid artery. The left internal carotid artery is occluded. There is heterogeneous, irregular atherosclerotic plaque noted in the left external carotid artery. Antegrade flow is noted in the left vertebral artery. Procedure Carotid Duplex 61295. The exam was diagnostic. Exam performed in department. VL/Carotid Duplex Ultrasound Interpretation Summary Severe (>70%) stenosis right extracranial internal carotid. Flow within the luiz tebral arteries is antegrade bilaterally. Left ICA occluded. Ordering Physician: David Meier Performed By: Torres Springer RVT
--- NOTE | 2022-07-12 09:00 | AAVD_ITS ---
Reason For Study: Claudication Aorta Measurements Aorta Doppler Measurements Proximal aorta measures2.39 x 2.40cm. in cross- Peak systolic flow velocities within the proximal sectional axis. aorta measure 42.8 cm/sec. Proximal aorta measures2.45cm. in longitudinal Peak systolic flow velocities within the mid aorta axis. measure 77.8 cm/sec. Mid aorta measures2.42 x 2.34cm. in cross- Peak systolic flow velocities within the distal sectional axis. aorta measure 59.5 cm/sec. Mid aorta measures2.23cm. in longitudinal axis. Distal aorta measures2.38 x 2.39cm. in cross- sectional axis. Distal aorta measures2.33cm. in longitudinal axis. Left Iliac Artery Left iliac artery measures 1.02 x 1.09 cm. in the cross-sectional axis. Left iliac artery measures 1.01 cm. in the longitudinal axis. Peak systolic velocity in the left iliac artery measures 123.5 cm/sec. Right Iliac Artery Right iliac artery measures 0.96 x 0.92 cm. in the cross-sectional axis. Right iliac artery measures 0.99 cm. in the longitudinal axis. Peak systolic velocity in the right iliac artery measures 194.4 cm/sec. Procedure Aorta IVC Iliac vasculature or bypass grafts 27172. The exam was diagnostic. Exam performed in department. VL/Abd Aortic/IVC Duplex scan Interpretation Summary No evidence aortoiliac aneurysm or stenosis. Ordering Physician: David Meier Referring Physician: MD David Meier Performed By: Torres Springer RVT
--- NOTE | 2022-07-12 09:02 | ART_ITS ---
Reason For Study: Claudication Procedure A bilateral lower extremity continuous wave Doppler with analog waveform analysis and ankle brachial indexes. Left Segmental Pressures Left brachial= 121mmHg. Left posterior tibial artery = 124mmHg. Left dorsalis pedis artery = 116mmHg. Left digit = 79 mmHg. The left posterior tibial artery waveforms are biphasic. The left dorsalis pedis waveforms are biphasic. Right Segmental Pressures Right brachial= 113mmHg. Right posterior tibial artery = 139mmHg. Right dorsalis pedis artery = 137mmHg. Right digit = 94 mmHg. The right posterior tibial artery waveforms are triphasic. The right dorsalis pedis waveforms are biphasic. Indices The right ankle brachial index by the posterior tibial artery is 1.15. The right ankle brachial index by the dorsalis pedis is 1.13. The right digital-brachial index is 0.78. The left ankle brachial index by the posterior tibial artery is 1.02. The left ankle brachial index by the dorsalis pedis is 0.96. The left digital-brachial index is 0.65. VL/Ankle Brachial Index Interpretation Summary Bilateral no occlussive disease at rest with TRAVON 1.15 and 1.02. Ordering Physician: MD David Meier Referring Physician: Marcos Moraes Performed By: Torres Springer RVT
== END | disposition home or self-care (01) ==
LOC: CVS 08:57
PROVIDERS: PCP Family Medicine; Visit Provider Surgery Vascular Surgery
DX: I65.23 Occlusion and stenosis of bilateral carotid arteries (principal); I70.213 Atherosclerosis of native arteries of extremities with intermittent claudication, bilateral legs; R09.89 Other specified symptoms and signs involving the circulatory and respiratory systems
CPT/HCPCS: 93880; 93922; 93978

== ENCOUNTER → 2022-08-30 | Outpatient (CLI) | payer MEDICARE, SELFPAY ==
--- NOTE | 2022-08-30 12:53 | CT_ITS ---
STUDY: CTA NECK WITH CONTRAST REASON FOR EXAM: Male, 87 years old. BILAT CAROTID STENOSIS RADIATION DOSAGE (If Supplied By Facility): CTDIvol = ( 18.05 ) mGy, DLP = ( 461.44 ) mGycm TECHNIQUE: CT angiography with multi-detector data acquisition was performed from the aortic arch to the skull base following intravenous administration of IV 100mL [id number]-370. MIP images were reconstructed from the axial data set. Post-processing of the angiographic images was performed, with multiplanar reformation and 3D reconstruction. Individualized dose optimization techniques were used for this CT. COMPARISON: Comparison is made with prior examination dated May 17, 2018. FINDINGS: AORTIC ARCH: There is atherosclerotic calcific plaque formation of the aortic arch and great vessels arising from the aortic arch, without a hemodynamically significant stenosis. There is a normal origin of the brachiocephalic, left common carotid, and left subclavian arteries. Nonstenotic calcific plaque is seen at the origin of the left common carotid and left subclavian arteries. RIGHT CAROTID ARTERIES: There is atherosclerotic plaque formation of the common carotid artery, but without a hemodynamically significant stenosis. Normal right common carotid bulb. There is extensive atherosclerotic plaque formation of the origin of the right internal carotid artery with an estimated stenosis of greater than 70%. Subtotal occlusion in the proximal portion of the right internal carotid artery just distal to its origin. Normal visualized cervical portion of the right internal carotid artery. Normal origin of the right external carotid artery (ECA). LEFT CAROTID ARTERIES: There is atherosclerotic plaque formation of the common carotid artery, but without a hemodynamically significant stenosis. Normal left common carotid bulb. There is complete occlusion of the origin of the left internal carotid artery without demonstrated arterial flow. Normal visualized cervical portion of the left internal carotid artery. Normal origin of the left external carotid artery (ECA). VERTEBRAL ARTERIES: Stenotic plaque in the distal portion of the right vertebral artery. CT/CTA Neck W/WO Contrast IMPRESSION: Occlusion of the left internal carotid artery at its origin. Greater than 70% stenosis at the origin of the right internal carotid artery with weblike stenosis causing subtotal occlusion just distal to the origin of the right internal carotid artery. Electronically Signed: Mehrdad Delgado MD at 14:17 EDT ,
[2022-08-30 13:41] LABS: EGFR FINGERSTICK > 60.0000 mL/min (>60)
== END | disposition home or self-care (01) ==
LOC: CT 12:52
PROVIDERS: PCP Family Medicine; Referring Provider Surgery Vascular Surgery; Visit Provider Surgery Vascular Surgery
DX: I65.23 Occlusion and stenosis of bilateral carotid arteries (principal)
CPT/HCPCS: 70498; Q9967; A4216

== ENCOUNTER → 2022-10-11 | Outpatient (CLI) | payer MEDICARE, SELFPAY ==
--- NOTE | 2022-10-11 17:05 | STRESSREP ---
Stress Test Report Pharmacologic myocardial perfusion stress test. 87-year-old man with history of peripheral vascular disease Resting EKG demonstrates sinus rhythm with a rate of 71 bpm. Resting blood pressure is 122/72 mmHg. 0.4 mg of regadenoson was infused per usual protocol followed by rapid intravenous saline flush injection. Continuous EKG monitoring was performed. The maximum heart rate was 90 bpm which was 68% of max impacted heart rate the maximum workload was 1 metabolic equivalent. At rest there were no ST or T wave changes noted to suggest ischemia and at peak infusion nonspecific ST changes were noted which did not meet the criteria for ischemia. No clinical angina is noted. The final blood pressure was 118/60mmHg. Myocardial perfusion protocol. 11.5 mCi of technetium 99m sestamibi was injected at rest. 0.4 mg of regadenoson was infused per usual protocol. At peak infusion 35 mCi of technetium 99m sestamibi was injected stress images were obtained stress and rest images were reconstructed and compared in the short axis vertical long and horizontal long axis. Gated images were also obtained. Perfusion SPECT analysis: Review of the stress images demonstrate normal uptake of tracer noted in all areas of the myocardium. There is some diaphragmatic and or GI attenuation artifact noted. The resting images similar demonstrated normal uptake of tracer noted in all areas of the myocardium. No areas of reversibility are noted to suggest ischemia and no previous infarct is noted. Gated SPECT analysis: The gated ejection fraction is 57%. Conclusion: Normal pharmacologic myocardial perfusion stress test. Preserved ejection fraction. Diaphragmatic artifact or GI cannot be completely excluded
== END | disposition home or self-care (01) ==
PROVIDERS: PCP Family Medicine; Referring Provider Nurse Practitioner Family; Visit Provider Nurse Practitioner Family
DX: Z01.810 Encounter for preprocedural cardiovascular examination (principal); I47.20 Ventricular tachycardia, unspecified; I65.22 Occlusion and stenosis of left carotid artery; I10 Essential (primary) hypertension; E78.5 Hyperlipidemia, unspecified
CPT/HCPCS: 78452; 93017; A9500; A4216; J2785

== ENCOUNTER 2023-04-19 13:44 | Emergency (ER) | payer MEDICARE, SELFPAY ==
[2023-04-19 13:46] VITALS: BP 105/52; PULSE 65; RESP 18; TEMP 36.2; O2SAT 99
--- NOTE | 2023-04-19 14:32 | EKG12_ITS ---
Test Reason : LOW BP Blood Pressure : / mmHG Vent. Rate : 063 BPM Atrial Rate : 063 BPM P-R Int : 154 ms QRS Dur : 082 ms QT Int : 428 ms P-R-T Axes : 017 029 -15 degrees QTc Int : 437 ms Normal sinus rhythm Nonspecific T wave abnormality Abnormal ECG Confirmed by JAK GUPTA, MELL ([id number]), copy editor QUINN PATEL ([id number]) on 04/25/2023 7:05:46 AM Referred By: Confirmed By:ELISE BENEDICT MD
[2023-04-19 14:56] LABS: Absolute Lymphocyte Count 2.02 X10^3/uL (0.83-4.51); Absolute Neutrophil Count 3.8 X10^3/uL (2.0-7.7); Basophil# 0.04 X10^3/uL; Basophil% 0.6 % (0-1); Eosinophil# 0.09 X10^3/uL; Eosinophils% 1.4 % (0-5); Hematocrit 38.9 % (40-54); Hemoglobin 11.7 g/dL (13.0-16.5); Lymphocyte # 2.02 X10^3/ul (0.83-4.51); Lymphocyte % 30.6 % (19-41); Mean Corp Hgb Conc 30.1 g/dL (32-36); Mean Corpuscular Volume 73.3 fL (80-94); Mean Platelet Vol. 10.8 fl (6.2-12.0); Monocyte# 0.69 X10^3/uL; Monocyte% 10.4 % (0-10); NRBC Flagged by Analyzer 0 % (0-5); Neutrophil # 3.76 X10^3/uL (2.7-7.7); Neutrophil % 56.8 % (47-70); Platelet Count 204 K/mm3 (150-450); RBC Distribution Width CV 17.2 % (11.6-14.6); RBC Distribution Width SD 44.6 fl (35.1-43.9); Red Blood Count 5.31 M/mm3 (4.6-6.2); White Blood Count 6.6 K/mm3 (4.4-11.0)
[2023-04-19 15:06] LABS: Prothrombin Time (Protime)PT. 13.2 SECONDS (11.7-14.9)
[2023-04-19 15:10] LABS: Anion Gap 2 (5-15); BUN 18 mg/dL (7-18); BUN/Creat Ratio 14.2 RATIO (10-20); Calcium,Total 8.9 mg/dL (8.5-10.1); Chloride 104 mmol/L (98-107); Creatinine, Serum 1.27 mg/dL (0.70-1.30); EST Glomerular Filtration Rate 57 mL/min (>60); Est Glom Filt Rate - Afr Amer 69 mL/min (>60); Glucose 91 mg/dL (74-106); Potassium 4.2 mmol/L (3.5-5.1); Sodium Level 139 mmol/L (136-145)
[2023-04-19 15:49] VITALS: PULSE 60; RESP 13; O2SAT 100
--- NOTE | 2023-04-19 15:52 | EDS_ITS ---
HPI History of Present Illness Chief Complaint: Hypotension Informant: patient Narrative Narrative: Presents from ophthalmology office reported blood pressure 70/40. Patient denied lightheaded symptoms. Patient denies any blood pressure medicines however records note atenolol in his records. He does report cough for 2 to 3 weeks mild productive. No fever or chills. Also reports urine frequency over the last couple nights. No vomiting also states diarrhea over the last 2 to 3 days. Nonbloody. Denies abdominal pain. Denies any coronary disease with any stenting or bypass. Denies any heart failure history. On arrival blood pressure systolic 105/52. [facility] Medical History (Updated 04/19/23 @ 18:[address] Luis Awan DO) Abnormal stress test Acute respiratory failure with hypoxia ANGLE (acute kidney injury) Arthritis BPH (benign prostatic hyperplasia) Emphysema lung Essential (primary) hypertension Former tobacco use Glaucoma Hematuria History of kidney stones Hyperlipidemia Left carotid artery stenosis Microcytic anemia NSVT (nonsustained ventricular tachycardia) OA (osteoarthritis) of hip Peripheral arterial disease Home Medications brimonidine 0.1 % eye drops (Alphagan P) 1 drp ophthalmic (eye) BID [place] 05/17/18 [History Last Taken 09/12/18 08:00 1 drop] finasteride 5 mg tablet (Proscar) 5 mg PO DAILY Check with primary doctor 05/17/18 [History Last Taken 09/12/18 08:00 5 mg] omeprazole magnesium 20 mg tablet,delayed release (Prilosec OTC) 20 mg PO DAILY Gerd 05/17/18 [History Last Taken 09/12/18 08:00 20 mg] timolol 0.25 % eye drops (Betimol) 1 drp ophthalmic (eye) BID [place] 05/17/18 [History Last Taken 09/12/18 08:00 1 drop] ketoconazole 2 % shampoo topical #240 mL 01/03/19 [History Last Taken Unknown] nystatin 100,000 unit/gram topical cream topical #45 grams 01/03/19 [History Last Taken Unknown] albuterol sulfate 90 mcg/actuation aerosol inhaler 2 puff inhalation Q4H PRN 11/17/21 [History Last Taken Unknown] betamethasone, augmented 0.05 % topical cream 1 applic topical DAILY 11/17/21 [History Last Taken Unknown] sildenafil 100 mg tablet 100 mg PO ONCE PRN 11/17/21 [History Last Taken Unknown] atenolol 25 mg tablet 25 mg PO DAILY #90 tabs 05/31/22 [Rx Last Taken Unknown] atorvastatin 40 mg tablet 40 mg PO DAILY #90 tabs 05/31/22 [Rx Last Taken Unknown] clopidogrel 75 mg tablet 75 mg PO DAILY #90 tabs 05/31/22 [Rx Last Taken Unknown] Allergy/AdvReac Type Severity Reaction Status Date / Time No Known Allergies Allergy Verified 04/19/23 13:49 Family History Mother Heart disease Surgical History H/O colonoscopy with polypectomy (2019) History of back surgery History of prostate surgery History of total right hip arthroplasty Hx of cystoscopy Hx of lithotripsy Hx of right inguinal hernia repair Social History household members: spouse Smoking Status: Former smoker how long ago did patient quit smokin alcohol intake: never substance use type: does not use caffeine: Yes Type: carbonated beverages, coffee and tea frequency: does not exercise ROS ROS ED Constitutional Constitutional ED: Denies chills, fever(s) or sweats Eyes Eyes: Denies change in vision ENT ENT ED: Denies dysphagia or sore throat Cardiovascular Cardiovascular: Denies chest pain, leg edema, palpitations or racing heartbeat Respiratory/Chest Respiratory/Chest: Reports cough; Denies dyspnea or dyspnea on exertion Gastrointestinal Gastrointestinal: Denies abdominal pain, diarrhea, nausea or vomiting Genitourinary Genitourinary ED: Reports urinary frequency; Denies dysuria or hematuria Musculoskeletal Musculoskeletal: Denies back pain, extremity pain or neck pain Integumentary Denies rash or wounds Neurologic Neurologic: Denies headache(s), paresthesias or weakness EXAM Physical Exam Const Vital Signs: 04/19/23 13:46 04/19/23 15:49 04/19/23 15:49 Temperature 97.2 F L Temperature Source Temporal Pulse Rate 65 60 Respiratory Rate 18 13 Respiratory Effort Normal Non-Labored Blood Pressure 105/52 L Blood Pressure Mean 69 Pulse Ox 99 100 Oxygen Delivery Method Room Air Room Air 04/19/23 15:53 04/19/23 16:48 04/19/23 18:50 Temperature 97.6 F L Temperature Source Pulse Rate 60 644 H Respiratory Rate 19 H 14 Respiratory Effort Blood Pressure 104/63 126/59 H 137/78 H Blood Pressure Mean 76 81 97 Pulse Ox 99 99 Oxygen Delivery Method Room Air Positive well nourished and well developed General Appearance ED: well developed and NAD HEENT Reports moist mucous membranes normocephalic and atraumatic Eyes PERRL, EOMs intact bilaterally and conjunctivae normal General Eye ED: Yes normal appearance of both eyes Neck no lymphadenopathy and supple General: Negative for tenderness Chest Wall Chest: Negative for tenderness Resp normal respiratory effort and normal air movement Effort and Inspection: symmetric chest movement; Negative for respiratory distress Cardio regular rate, regular rhythm and no murmurs Peripheral Pulses: pulses 2+ throughout GI normal to inspection, nondistended, normoactive bowel sounds and non-tender GI Narrative: Negative Ambriz's or McBurney's tenderness. Palpation: Negative for guarding or rebound tenderness present Back/Spine no CVA tenderness and no thoracic nor lumbar tenderness Extremity normal to inspection General Extremety ED: Negative for edema or tenderness General Extremity: Negative for edema Neuro oriented x3 and no sensory deficits noted Sensorium / Orientation: awake and alert Skin no rashes or lesions noted and no wounds MDM MDM MDM Narrative Medical decision making narrative: Interventions / MDM: Differential diagnosis: Infectious findings, electrolyte abnormalities Diagnosis considered but do not suspect: Pneumonia however negative chest x-ray My EKG interpretation: Sinus rate of 63, no ST changes, T wave inversions in leads III and aVF, similar findings from EKG May 2021. Imaging independently reviewed and interpreted by myself: 2 view chest x-ray: No infiltrate also read by radiology. External documents reviewed: N/A Test considered but not ordered:N/A ED course: Patient sent from ophthalmology for reported low blood pressure however denied lightheaded symptoms. Blood pressure 105/52. Labs were drawn through triage along with EKG. He reports urine frequency along with cough. Will add urine and chest x-ray along with COVID and influenza. Will give IV fluids and reevaluate. Blood pressure remained stable. X-ray negative urine negative for infection. Discussed viral syndrome with the patient. Outpatient follow-up with his PCP. All questions were answered. Re-evaluation: stable Disposition discussed with patient/family/significant other: Patient and significant other Case discussed with consulting clinician: N/A This note was generated with [employer] dictation software. It may contain incorrect words, spelling, and punctuation that were not noted in checking the note before signing. Lab Data Attestation: I reviewed the patient's lab results. Labs: Laboratory Results - last 24 hr 04/19/23 04/19/23 14:45 17:10 WBC 6.6 RBC 5.31 Hgb 11.7 L Hct 38.9 L MCV 73.3 L MCH 22.0 L MCHC 30.1 L RDW Std Deviation 44.6 H RDW Coeff of Aris 17.2 H Plt Count 204 MPV 10.8 Immature Gran % (Auto) 0.200 Neut % (Auto) 56.8 Lymph % (Auto) 30.6 [place] % (Auto) 10.4 H Eos % (Auto) 1.4 Baso % (Auto) 0.6 Absolute Neuts (auto) 3.8 Absolute Lymphs (auto) 2.02 Nucleated RBC % 0 PT 13.2 INR 1.0 Sodium 139 Potassium 4.2 Chloride 104 Carbon Dioxide 33.0 H Anion Gap 2 L BUN 18 Creatinine 1.27 Est GFR (MDRD) Af Amer 69 Est GFR (MDRD) Non-Af 57 L BUN/Creatinine Ratio 14.2 Glucose 91 Calcium 8.9 Urine Color Yellow Urine Clarity Clear Urine pH 6.0 Ur Specific [place] 1.015 Urine Protein 15 H Urine Glucose (UA) Normal Urine Ketones Negative Urine Occult Blood Negative Urine Nitrite Negative Urine Bilirubin Negative Urine Urobilinogen Normal Ur Leukocyte Esterase 25 H Urine RBC 0 SEEN Urine WBC 0-5 SEEN Ur Squamous Epith Cells 0-5 SEEN Urine Bacteria 0 SEEN Urine Mucus 0 SEEN Radiography Diagnostic Testing: Clinical Impression(s) from Imaging Studies Chest X-Ray 04/19/23 16:04 IMPRESSION: There are findings consistent with COPD. There is no evidence of acute chest disease. Electronically Signed: Sebastian Bueno MD at 16:42 EST , Discharge Plan Triage Chief Complaint: Hypotension ED Provider: uLis Awan Dx/Rx/DC Orders Clinical Impression: Viral URI with cough, Well adult health check Instructions: ED URI, Viral, No Abx (Adult) Prescriptions: No Action finasteride [Proscar] 5 mg tablet 5 mg PO DAILY Alphagan P 0.1 % drops 1 drp OPHTHALMIC BID Betimol 0.25 % drops 1 drp OPHTHALMIC BID Prilosec OTC 20 mg tablet,delayed release (DR/EC) 20 mg PO DAILY ketoconazole 2 % shampoo TOPICAL Qty: 240 Patient Comments: SHAMPOO TWICE A WEEK DIRECTED nystatin 100,000 unit/gram cream TOPICAL Qty: 45 Patient Comments: APPLY TO THE AFFECTED AREA(S) TWICE DAILY betamethasone, augmented 0.05 % cream 1 applic topical DAILY sildenafil 100 mg tablet 100 mg PO ONCE PRN albuterol sulfate 90 mcg/actuation HFA aerosol inhaler 2 puff inhalation Q4H PRN atenolol 25 mg tablet 25 mg PO DAILY Qty: 90 3RF atorvastatin 40 mg tablet 40 mg PO DAILY Qty: 90 5RF clopidogrel 75 mg tablet 75 mg PO DAILY Qty: 90 3RF Primary Care Provider: Marcos Moreas Referrals: Marcos Moraes MD [Primary Care Provider] - 1 Week if not improving Activity Restrictions/Additional Instructions: Your blood pressure was not low on arrival to the ED. You had cough symptoms or chest x-ray negative for pneumonia. COVID and flu negative. Urine is negative. Lab work stable. Follow-up with your doctor for outpatient reevaluation. Disposition Disposition: Home, Self Care Discharge Date/Time: 04/19/23 18:51
[2023-04-19 15:53] VITALS: BP 104/63; PULSE 60; RESP 19; O2SAT 99
[2023-04-19] MEDS: 0.9% Normal Saline (1000mL) 1,000 ML 1000 ML IV (15:55)
--- NOTE | 2023-04-19 16:04 | RAD_ITS ---
STUDY: X-RAY CHEST REASON FOR EXAM: Male, 87 years old. cough TECHNIQUE: Frontal and lateral views of the chest. COMPARISON: 09/12/2018. FINDINGS: The lungs are hyperexpanded. There are coarsened interstitial markings suggestive of mild chronic fibrosis. No gross focal infiltrates. No gross effusions. Normal size heart. Normal mediastinum and ryan. Normal visualized pulmonary arteries. Normal visualized aortic arch and descending thoracic aorta. There are diffuse degenerative changes of the visualized thoracic spine. Normal visualized ribs, clavicles, and shoulders. There is no demonstrated abnormality of the visualized soft tissue structures of the upper abdomen. RAD/Chest PA and Lateral IMPRESSION: There are findings consistent with COPD. There is no evidence of acute chest disease. Electronically Signed: Sebastian Bueno MD at 16:42 EST ,
[2023-04-19 16:48] VITALS: BP 126/59
[2023-04-19 17:21] LABS: Bacteria 0 SEEN /hpf (None Seen); Color, Urine Yellow (Yellow); Glucose, Dipstick Normal (Normal); Ketone-Dipstick Negative (Negative); Leukocyte Esterase-Dipstick 25 /ul (Negative); Mucous, Urine 0 SEEN /hpf (<or=2+); Nitrite-Dipstick Negative (Negative); Occult Blood-Urine Negative /ul (Negative); Protein-Dipstick 15 mg/dl (Negative); Red Blood Cells-Urine 0 SEEN /hpf (0-5); Specific Gravity, Urine 1.015 (1.002-1.030); Urine Bilirubin Dipstick Negative (Negative); Urine Clarity Clear (Clear); Urine Urobilinogen Normal (Normal)
[2023-04-19 17:28] LABS: Squamous Epithelial Cells - UA 0-5 SEEN /hpf (0-5); White Blood Cells 0-5 SEEN /hpf (0-5)
[2023-04-19 18:50] VITALS: BP 137/78; PULSE 644; RESP 14; TEMP 36.4; O2SAT 99
== END 2023-04-19 18:51 | disposition home or self-care (01) ==
PROVIDERS: Emergency Medicine; Emergency Provider Emergency Medicine; PCP Family Medicine; Visit Provider Emergency Medicine
DX: J06.9 Acute upper respiratory infection, unspecified (principal); I95.9 Hypotension, unspecified; R05.9 Cough, unspecified; R35.0 Frequency of micturition; Z87.891 Personal history of nicotine dependence
CPT/HCPCS: 71046; 80048; 81001; 85025; 85610; 87428; 93005; 96360; 99283; J7030; A4216

== ENCOUNTER → 2023-07-06 | Outpatient (CLI) | payer MEDICARE, SELFPAY ==
--- NOTE | 2023-07-06 08:59 | AAVD_ITS ---
Reason For Study: PAD Aorta Measurements Aorta Doppler Measurements Proximal aorta measures2.05 x 2.03cm. in cross- Peak systolic flow velocities within the proximal sectional axis. aorta measure 27.1 cm/sec. Proximal aorta measures2.03cm. in longitudinal Peak systolic flow velocities within the mid aorta axis. measure 20.4 cm/sec. Mid aorta measures2.13 x 1.93cm. in cross- Peak systolic flow velocities within the distal sectional axis. aorta measure 16.7 cm/sec. Mid aorta measures1.88cm. in longitudinal axis. Distal aorta measures1.99 x 1.93cm. in cross- sectional axis. Distal aorta measures2.02cm. in longitudinal axis. Left Iliac Artery Left iliac artery measures 0.89 x 0.84 cm. in the cross-sectional axis. Left iliac artery measures 0.93 cm. in the longitudinal axis. Peak systolic velocity in the left iliac artery measures 109.0 cm/sec. Right Iliac Artery Right iliac artery measures 0.96 x 0.86 cm. in the cross-sectional axis. Right iliac artery measures 0.85 cm. in the longitudinal axis. Peak systolic velocity in the right iliac artery measures 61.1 cm/sec. Procedure Aorta IVC Iliac vasculature or bypass grafts 24122. Technically difficult study due to hernia. Exam performed in department. VL/Abd Aortic/IVC Duplex scan Interpretation Summary Aortoiliac no stenosis and no aneurysm. Ordering Physician: David Meier Referring Physician: David Meier Performed By: Annika Vaughn, RDCS, RVT
--- NOTE | 2023-07-06 08:59 | ART_ITS ---
Reason For Study: PAD/PVD Procedure A bilateral lower extremity continuous wave Doppler with analog waveform analysis and ankle brachial indexes. Left Segmental Pressures Left brachial= 106mmHg. Left posterior tibial artery = 97mmHg. Left dorsalis pedis artery = 97mmHg. Left digit = 67 mmHg. The left posterior tibial artery waveforms are biphasic. The left dorsalis pedis waveforms are biphasic. Right Segmental Pressures Right brachial= 105mmHg. Right posterior tibial artery = 109mmHg. Right digit = 61 mmHg. The right posterior tibial artery waveforms are triphasic. Unable to obtain RT DP. Indices The right resting ankle brachial index is 1.03. The right ankle brachial index by the posterior tibial artery is 1.03. Unable to obtain RT DP. The right digital-brachial index is 0.58. The left resting ankle brachial index is 0.92. The left ankle brachial index by the posterior tibial artery is 0.92. The left ankle brachial index by the dorsalis pedis is 0.92. The left digital-brachial index is 0.63. VL/Ankle Brachial Index Interpretation Summary bilateral normal at rest with TRAVON's listed. Ordering Physician: David Meier Referring Physician: Marcos Moraes Performed By: Annika Vaughn RVT, RDCS
--- NOTE | 2023-07-06 09:00 | CDU_ITS ---
Reason For Study: carotid stenosis, RT CEA 11/18/22. Rt. Velocities/BP Lt. Velocities/BP Prox CCA 100.2/15.5 cm/sec. Prox CCA 65.1/4.6 cm/sec. Mid CCA 72.0/9.3 cm/sec. Mid CCA 53.0/3.5 cm/sec. Dist CCA 51.5/13.1 cm/sec. Dist CCA 42.0/5.7 cm/sec. Prox ICA 58.1/17.5 cm/sec. KNOWN ICA OCCLUSION. Mid ICA 93.0/32.5 cm/sec. Prox ECA 127.7/8.9 cm/sec. Dist ICA 114.7/32.6 cm/sec. Lt. Vert. 76.5/29.0 cm/sec. Rt. ICA/CCA = 114.7/72.0=1.6. Prox ECA 43.9/9.8 cm/sec. Rt. Vert. 54.1/17.8 cm/sec. Right Extracranial There is heterogeneous, irregular atherosclerotic plaque noted in the right common carotid artery. There is homogeneous, smooth atherosclerotic plaque noted in the right internal carotid artery. There is heterogeneous, smooth atherosclerotic plaque noted in the right external carotid artery. Antegrade flow is noted in the right vertebral artery. Left Extracranial There is heterogeneous, irregular atherosclerotic plaque noted in the left common carotid artery. The left internal carotid artery is occluded. There is heterogeneous, irregular atherosclerotic plaque noted in the left external carotid artery. Antegrade flow is noted in the left vertebral artery. Procedure Carotid Duplex 14726. This is a Carotid Duplex examination using B-mode, color flow and specral Doppler. The study was technically difficult. Exam performed in department. VL/Carotid Duplex Ultrasound Interpretation Summary Mild (<50%) stenosis right extracranial internal carotid. 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 Flow within the vertebral arteries is antegrade bilater ally. Ordering Physician: David Meier Referring Physician: Marcos Moraes Performed By: Annika Vaughn, ARMEN, RVT
== END | disposition home or self-care (01) ==
LOC: CVS 08:56
PROVIDERS: PCP Family Medicine; Referring Provider Surgery Vascular Surgery; Visit Provider Surgery Vascular Surgery
DX: I65.23 Occlusion and stenosis of bilateral carotid arteries (principal); I73.9 Peripheral vascular disease, unspecified; I10 Essential (primary) hypertension
CPT/HCPCS: 93880; 93922; 93978

== ENCOUNTER 2024-07-08 14:27 | Observation (INO) | payer MEDICARE, SELFPAY ==
[2024-07-08] VITALS (13 sets, daily range): BP systolic 78–168; BP diastolic 40–106; PULSE 56–87; RESP 12–22; TEMP 36.6–37; O2SAT 94–100; BMI 23.1; BMI 20.6
[2024-07-08] MEDS: 0.9% Normal Saline (500mL Bag) 500 ML 1000 ML IV (14:55)
--- NOTE | 2024-07-08 15:04 | EX.ED.DYSGE1 ---
HPI History of Present Illness Chief Complaint: Syncope Informant: patient Onset/Context/Timing Onset: Today Context: Sudden Onset Timing: Intermittent Quality: Dizzy, blurry vision Location: Generalized Worsened by: Nothing Relieved by: Nothing Narrative Narrative: Patient presents with syncopal episode that occurred today. Patient states he felt dizzy and had blurred vision prior to this. Patient fell off of a stool onto the floor. Patient states he does not feel like he completely lost consciousness however, his states that he did lose consciousness. states the patient was shaking on the floor when he passed out. states this episode lasted approximately 3 to 4 minutes. Patient states he felt dizzy and lightheaded. Patient states his vision became blurry. Patient states nothing made his symptoms better and nothing made them worse. Patient states she has had some urinary frequency and abdominal pain recently. [facility] Medical History Peripheral arterial disease NSVT (nonsustained ventricular tachycardia) Left carotid artery stenosis Essential (primary) hypertension Former tobacco use [place] (acute kidney injury) Acute respiratory failure with hypoxia Emphysema lung Glaucoma OA (osteoarthritis) of hip Microcytic anemia Hyperlipidemia History of kidney stones Hematuria BPH (benign prostatic hyperplasia) Arthritis Abnormal stress test Home Medications ?Medication ?Instructions ?Recorded ?Last Taken ?Type brimonidine 0.1 % eye drops 1 drp ophthalmic (eye) BID [place] 05/17/18 09/12/18 08:00 History (Alphagan P) 1 drop finasteride 5 mg tablet (Proscar) 5 mg PO DAILY Check with primary 05/17/18 09/12/18 08:00 History doctor 5 mg omeprazole magnesium 20 mg 20 mg PO DAILY Gerd 05/17/18 09/12/18 08:00 History tablet,delayed release (Prilosec 20 mg OTC) timolol 0.25 % eye drops (Betimol) 1 drp ophthalmic (eye) BID glacoma 05/17/18 09/12/18 08:00 History 1 drop ketoconazole 2 % shampoo topical #240 mL 01/03/19 Unknown History nystatin 100,000 unit/gram topical 1 applic topical #45 grams 01/03/19 Unknown History cream betamethasone, augmented 0.05 % 1 applic topical DAILY 11/17/21 Unknown History topical cream atorvastatin 40 mg tablet 40 mg PO DAILY #90 tabs 05/31/22 Unknown Rx clopidogrel 75 mg tablet 75 mg PO DAILY #90 tabs 05/31/22 Unknown Rx acetaminophen 650 mg 650 mg PO Q12H PRN pain 06/10/23 Unknown History tablet,extended release (Tylenol 8 Hour) atenolol 25 mg tablet 25 mg PO DAILY #90 tabs 04/23/24 Unknown Rx aspirin 81 mg tablet,delayed 81 mg PO DAILY 07/08/24 Unknown History release omeprazole 20 mg capsule,delayed 20 mg PO 07/08/24 Unknown History release oxybutynin chloride 5 mg 5 mg PO DAILY 07/08/24 Unknown History tablet,extended release 24 hr Allergy/AdvReac Type Severity Reaction Status Date / Time No Known Allergies Allergy Verified 07/08/24 14:32 Family History Mother Heart disease Surgical History History of right common carotid artery stent placement (~11/2022) H/O colonoscopy with polypectomy (2018) Hx of right inguinal hernia repair History of total right hip arthroplasty History of prostate surgery History of back surgery Hx of lithotripsy Hx of cystoscopy Social History household members: spouse Smoking Status: Former smoker how long ago did patient quit smokin alcohol intake: never substance use type: does not use caffeine: Yes Type: carbonated beverages, coffee and tea frequency: does not exercise ROS ROS ED Constitutional Constitutional ED: Denies chills or fever(s) Eyes Eyes: Reports blurry vision; Denies change in vision ENT ENT ED: Reports rhinorrhea; Denies sore throat Cardiovascular Cardiovascular: Denies chest pain or palpitations Respiratory/Chest Respiratory/Chest: Denies cough or dyspnea Gastrointestinal Gastrointestinal: Reports abdominal pain; Denies nausea or vomiting Genitourinary Genitourinary ED: Reports urinary frequency; Denies dysuria or hematuria Musculoskeletal Musculoskeletal: Denies back pain or neck pain Integumentary Denies abscess or rash Neurologic Neurologic: Reports weakness; Denies headache(s) Allergic/Immunologic Allergic/Immunologic ED: Denies mouth swelling or urticaria EXAM Physical Exam Const Vital Signs: 07/08/24 14:28 07/08/24 14:33 07/08/24 14:52 Temperature 98 F Temperature Source Oral Pulse Rate 66 61 Pulse Rate [Lying] Pulse Rate [Sitting (for 1 minute prior to obtaining)] Pulse Rate [Standing (for 1 minute prior to obtaining)] Respiratory Rate 15 16 Respiratory Effort Normal Respiratory Pattern Normal Blood Pressure 125/106 H 78/40 L Blood Pressure [Lying] Blood Pressure [Sitting (for 1 minute prior to obtaining)] Blood Pressure [Standing (for 1 minute prior to obtaining)] Blood Pressure Mean 112 52 Blood Pressure Mean [Lying] Blood Pressure Mean [Sitting (for 1 minute prior to obtaining)] Blood Pressure Mean [Standing (for 1 minute prior to obtaining)] Pulse Ox 95 94 Oxygen Delivery Method Room Air Room Air 07/08/24 14:57 07/08/24 15:14 07/08/24 15:36 Temperature Temperature Source Pulse Rate 60 61 Pulse Rate [Lying] Pulse Rate [Sitting (for 1 minute prior to obtaining)] Pulse Rate [Standing (for 1 minute prior to obtaining)] Respiratory Rate 19 H 22 H Respiratory Effort Respiratory Pattern Blood Pressure 92/49 L 92/54 L Blood Pressure [Lying] Blood Pressure [Sitting (for 1 minute prior to obtaining)] Blood Pressure [Standing (for 1 minute prior to obtaining)] Blood Pressure Mean 63 66 Blood Pressure Mean [Lying] Blood Pressure Mean [Sitting (for 1 minute prior to obtaining)] Blood Pressure Mean [Standing (for 1 minute prior to obtaining)] Pulse Ox 99 94 Oxygen Delivery Method Room Air Room Air Room Air 07/08/24 16:00 07/08/24 16:17 07/08/24 17:00 Temperature Temperature Source Pulse Rate 65 56 L Pulse Rate [Lying] 60 Pulse Rate [Sitting (for 1 minute prior to obtaining)] 57 L Pulse Rate [Standing (for 1 minute prior to obtaining)] 81 Respiratory Rate 16 12 Respiratory Effort Respiratory Pattern Blood Pressure 93/50 L 118/56 L Blood Pressure [Lying] 131/56 H Blood Pressure [Sitting (for 1 minute prior to obtaining)] 115/57 L Blood Pressure [Standing (for 1 minute prior to obtaining)] 140/74 H Blood Pressure Mean 64 76 Blood Pressure Mean [Lying] 81 Blood Pressure Mean [Sitting (for 1 minute prior to obtaining)] 76 Blood Pressure Mean [Standing (for 1 minute prior to obtaining)] 96 Pulse Ox 97 99 Oxygen Delivery Method Room Air Room Air 07/08/24 18:00 07/08/24 19:00 Temperature Temperature Source Pulse Rate 85 87 Pulse Rate [Lying] Pulse Rate [Sitting (for 1 minute prior to obtaining)] Pulse Rate [Standing (for 1 minute prior to obtaining)] Respiratory Rate 16 19 H Respiratory Effort Respiratory Pattern Blood Pressure 128/75 H 125/61 H Blood Pressure [Lying] Blood Pressure [Sitting (for 1 minute prior to obtaining)] Blood Pressure [Standing (for 1 minute prior to obtaining)] Blood Pressure Mean 92 82 Blood Pressure Mean [Lying] Blood Pressure Mean [Sitting (for 1 minute prior to obtaining)] Blood Pressure Mean [Standing (for 1 minute prior to obtaining)] Pulse Ox 97 100 Oxygen Delivery Method Room Air Room Air Positive well nourished and well developed General Appearance ED: well developed and NAD HEENT Reports moist mucous membranes Neck supple and no JVD Resp normal respiratory effort and clear to auscultation bilaterally Cardio regular rate and regular rhythm GI non-tender and non-distended Palpation: soft Neuro oriented x3, CN's II-XII intact bilaterally and no sensory deficits noted Sensorium / Orientation: alert Motor Exam: strength 5/5 throughout Psych mental status grossly normal MDM MDM MDM Narrative Medical decision making narrative: Differential diagnosis includes cardiac dysrhythmia, cardiac ischemia, pneumonia, bronchitis, urinary tract infection, electrolyte abnormality, dehydration, intracranial bleeding, and vasovagal syncope. EKG will be obtained to assess for cardiac dysrhythmia and cardiac ischemia. CT scan of the brain will be obtained to assess for intracranial bleeding. Chest x-ray will be obtained to assess for pneumonia and bronchitis. CBC will be obtained to assess for leukocytosis and anemia. Comprehensive metabolic profile will be obtained to assess for hepatic function, renal function, and electrolyte abnormality. High-sensitivity troponin will be obtained to assess for cardiac ischemia. 2-hour repeat high-sensitivity troponin will be obtained to assess for ongoing cardiac ischemia. Urinalysis will be obtained to assess for urinary tract infection and hematuria. Lab Data Attestation: I reviewed the patient's lab results. Lab results narrative: CBC was reviewed. There is a mild anemia with a hemoglobin of 11.2 and hematocrit 36.0. PT was INR and PTT were reviewed and were essentially within normal limits. Comprehensive metabolic profile was reviewed. Glucose was mildly elevated 146. The remainder is within normal limits. Initial high-sensitivity troponin was reviewed and was 20. 2-hour repeat high-sensitivity troponin was reviewed and was 16. BNP was reviewed and was elevated at 1968. Labs: Laboratory Results - last 24 hr 07/08/24 07/08/24 15:30 17:35 WBC 4.6 RBC 4.98 Hgb 11.2 L Hct 36.0 L MCV 72.3 L MCH 22.5 L MCHC 31.1 L RDW Std Deviation 43.9 RDW Coeff of Aris 17.3 H Plt Count 165 MPV TNP Immature Gran % (Auto) 0.200 Neut % (Auto) 43.7 L Lymph % (Auto) 43.4 H [place] % (Auto) 9.9 Eos % (Auto) 1.7 Baso % (Auto) 1.1 H Absolute Neuts (auto) 2.0 Absolute Lymphs (auto) 2.01 Nucleated RBC % 0 PT 14.3 INR 1.1 APTT 27.9 Sodium 140 Potassium 4.1 Chloride Direct 101 Carbon Dioxide 28.1 Anion Gap 10 BUN 17 Creatinine 1.07 Estim Creat Clear Calc 55.61 Est GFR (MDRD) Non-Af 66 BUN/Creatinine Ratio 16.3 Glucose 146 H Calcium 9.4 Total Bilirubin 0.45 AST 19 ALT 10 Alkaline Phosphatase 75 Troponin T High Sens 20 Troponin T Hi Sens 2 Hr 16 Troponin T Hi Sens 2Hr Delta 5 NT pro BNP II 1969 H Total Protein 7.5 Albumin 4.0 Globulin 3.6 Albumin/Globulin Ratio 1.1 Radiography Chest X-Ray - ED: 2 View, Read by ED Physician, Read by Radiologist and Chronic Changes Diagnostic Testing: Clinical Impression(s) from Imaging Studies Chest X-Ray 07/08/24 15:40 IMPRESSION: COPD changes with no acute cardiopulmonary disease. Reading Location: [facility] PA and lateral chest x-ray was obtained. There are 2 views. On my independent interpretation, lung fuentes show COPD. There is normal cardiac silhouette. Bony thorax is normal. There is no acute process noted. Radiologist also interpreted the x-ray and agrees. Management Discussion w/another healthcare provider: Hospitalist (Dr. Coleman) Treatment and Re-Evaluation :: Patient was given IV fluids initially. Patient was given aspirin. Because of the elevated BNP, I am reluctant to give the patient any more IV fluids. Orthostatic vital signs were reviewed. Patient's heart rate went from 60-81 from lying to standing. Patient's blood pressure went from 131 systolic to 115 systolic from lying to sitting. Patient was advised of his findings. Patient was ambulated here in the emergency department. Patient maintained good oxygen saturation however, his heart rate went up with walking. Patient was advised of his findings. I recommended admission to the hospital for further syncope evaluation. Patient is agreeable with this. Case was discussed with hospitalist. He will be in to evaluate the patient. Comments:: [place] Syncope Risk Score from Kiveda on 07/08/2024 All calculations should be rechecked by clinician prior to use RESULT SUMMARY: 1 points [place] Syncope Risk Score Medium risk 3.1% risk of 30-day serious adverse event (, arrhythmia, [place] ? full list in Evidence) INPUTS: Predisposition to vasovagal symptoms ?> 0 = No Heart disease history ?> 1 = Yes sBP 180 mmHg ?> 0 = No Elevated troponin ?> 0 = No Abnormal QRS axis ?> 0 = No QRS duration >130 ms ?> 0 = No Corrected QT interval >480 ms ?> 0 = No ED diagnosis ?> 0 = Neither Discharge Plan Dx/Rx/DC Orders Clinical Impression: Syncope and collapse, Essential (primary) hypertension, History of peripheral arterial disease Disposition Disposition: Acute Care Hospital [facility] Discharge Date/Time: 07/08/24 19:56
--- NOTE | 2024-07-08 15:28 | EKG12_ITS ---
Test Reason : SYNCOPE Blood Pressure : */* mmHG Vent. Rate : 56 BPM Atrial Rate : 56 BPM P-R Int : 152 ms QRS Dur : 90 ms QT Int : 450 ms P-R-T Axes : 19 58 -19 degrees QTcB Int : 434 ms Sinus bradycardia T wave abnormality, consider inferior ischemia Abnormal ECG Confirmed by Khadar Michelle ([id number]), magazine editor MAXWELL LION ([id number]) on 07/10/2024 10:49:30 AM Referred By: Confirmed By: Khadar Michelle
[2024-07-08] MEDS: Aspirin 81 MG TAB.CHEW 324 MG PO (15:39)
--- NOTE | 2024-07-08 15:40 | RAD_ITS ---
PROCEDURE: CHEST PA AND LATERAL REASON FOR EXAM: Chest pain TECHNIQUE: Frontal and lateral views of the chest. COMPARISON: 04/19/2023 FINDINGS: The heart size is normal. There are atherosclerotic calcifications of the thoracic aorta. Hyperinflated lungs. Eventration of the right hemidiaphragm. Degenerative changes are identified within the thoracic spine. RAD/Chest PA and Lateral IMPRESSION: COPD changes with no acute cardiopulmonary disease. Reading Location: [facility]
[2024-07-08 15:45] LABS: Absolute Lymphocyte Count 2.01 X10^3/uL (0.83-4.51); Basophil# 0.05 X10^3/uL; Basophil% 1.1 % (0-1); Eosinophil# 0.08 X10^3/uL; Eosinophils% 1.7 % (0-5); Hemoglobin 11.2 g/dL (13.0-16.5); Lymphocyte # 2.01 X10^3/ul (0.83-4.51); Lymphocyte % 43.4 % (19-41); Mean Corp Hgb Conc 31.1 g/dL (32-36); Mean Corpuscular Hgb 22.5 pg (27.0-32.0); Mean Corpuscular Volume 72.3 fL (80-94); Monocyte# 0.46 X10^3/uL; Monocyte% 9.9 % (0-10); NRBC Flagged by Analyzer 0 % (0-5); Neutrophil # 2.02 X10^3/uL (2.7-7.7); Neutrophil % 43.7 % (47-70); Platelet Count 165 K/mm3 (150-450); RBC Distribution Width CV 17.3 % (11.6-14.6); RBC Distribution Width SD 43.9 fl (35.1-43.9); Red Blood Count 4.98 M/mm3 (4.6-6.2); White Blood Count 4.6 K/mm3 (4.4-11.0)
[2024-07-08 15:48] LABS: POSITIVE COUNT NO; POSITIVE DIFFERENTIAL NO; POSITIVE MORPHOLOGY NO
[2024-07-08 15:51] LABS: International Normalized Ratio 1.1; Prothrombin Time (Protime)PT. 14.3 SECONDS (11.7-14.9)
[2024-07-08 15:53] LABS: Partial Thromboplast Time 27.9 Seconds (24.1-36.2)
[2024-07-08 16:03] LABS: ALB/GLOB Ratio 1.1 RATIO (0.9-2.4); AST(SGOT) 19 U/L (<=37); Alanine Aminotransfer ALT/SGPT 10 U/L (<=46); Alkaline Phosphatase 75 U/L (40-129); Anion Gap 10 (5-15); BUN 17 mg/dL (4-19); BUN/Creat Ratio 16.3 RATIO (10-20); Calcium 9.4 mg/dL (7.6-11.0); Carbon Dioxide 28.1 mmol/L (22.0-29.0); Chloride 101 mmol/L (96-108); Creatinine, Serum 1.07 mg/dL (0.70-1.20); EST Glomerular Filtration Rate 66 (>60); Estimated Creatinine Clearance 55.61 ml/min (50-250); Globulin 3.6 g/dL (2.2-4.2); Glucose 146 mg/dL (70-99); Potassium 4.1 mmol/L (3.3-5.1); Protein, Total 7.5 g/dL (5.9-8.4); Sodium Level 140 mmol/L (133-145); Total Bilirubin 0.45 mg/dL (0.00-1.30)
[2024-07-08 16:05] LABS: Pro- Brain NATRIURETIC PEPTIDE 1969 pg/mL (<=1800); Troponin T High Sensitivity 20 ng/L (<=22)
[2024-07-08 17:58] LABS: TROPONIN VARIANCE 2 HR 5; Troponin T High Sens 2 HR 16 ng/L (<=22)
--- NOTE | 2024-07-08 19:29 | HP.PCM.HOS_ITS ---
[facility] - General General Date of Service: 07/08/24 Chief Complaint: near syncope [facility] Narrative JASSI COOPER, is a 88 M who presents with near syncope. Patient was in his normal state of health and then today he had just eaten his breakfast at around 2 PM. He was sitting in a chair and felt his eyes go dark he remembers falling from his chair to the floor. He denies losing any consciousness. In the process of falling he was having some upper extremity shaking. He presented to the emergency room for evaluation. In the emergency room his workup was unremarkable. His BNP was elevated at 1969. His troponin series were negative. He feels fine at this time. This has not been a problem for him in the past. [facility] Medical History Peripheral arterial disease NSVT (nonsustained ventricular tachycardia) Left carotid artery stenosis Essential (primary) hypertension Former tobacco use ANLGE (acute kidney injury) Acute respiratory failure with hypoxia Emphysema lung Glaucoma OA (osteoarthritis) of hip Microcytic anemia Hyperlipidemia History of kidney stones Hematuria BPH (benign prostatic hyperplasia) Arthritis Abnormal stress test Home Medications ?Medication ?Instructions ?Recorded ?Last Taken ?Type brimonidine 0.1 % eye drops 1 drp ophthalmic (eye) BID [place] 05/17/18 09/12/18 08:00 History (Alphagan P) 1 drop finasteride 5 mg tablet (Proscar) 5 mg PO DAILY Check with primary 05/17/18 09/12/18 08:00 History doctor 5 mg omeprazole magnesium 20 mg 20 mg PO DAILY Gerd 9 09/12/18 08:00 History tablet,delayed release (Prilosec 20 mg OTC) timolol 0.25 % eye drops (Betimol) 1 drp ophthalmic (e ye) BID glacoma 05/17/18 09/12/18 08:00 History 1 drop ketoconazole 2 % shampoo topical #240 mL 01/03/19 Unk nown History nystatin 100,000 unit/gram topical topical #45 grams 0 01/03/19 Unknown History cream albuterol sulfate 90 mcg/actuation 2 puff inhalation Q 4H PRN 11/17/21 Unknown History aerosol inhaler betamethasone, augmented 0.05 % 1 applic topical DAILY 11/17/21 Unknown History topical cream atorvastatin 40 mg tablet 40 mg PO DAILY #90 tabs 05/10 07/29 Unknown Rx clopidogrel 75 mg tablet 75 mg PO DAILY #90 tabs 05/10 07/29 Unknown Rx acetaminophen 650 mg 650 mg PO Q12H PRN 06/10/23 Unknown History tablet,extended release (Tylenol 8 Hour) phenylephrine HCl 10 mg tablet 10 mg PO Q4-6H PRN 07/02 Unknown History (Sudafed PE) atenolol 25 mg tablet 25 mg PO DAILY #90 tabs 04/08 10/30 Unknown Rx Allergy/AdvReac Type Severity Reaction Status Date / Time No Known Allergies Allergy Verified 07/08/24 14:32 Family History Mother Heart disease Surgical History History of right common carotid artery stent placement (~11/2022) H/O colonoscopy with polypectomy (2018) Hx of right inguinal hernia repair History of total right hip arthroplasty History of prostate surgery History of back surgery Hx of lithotripsy Hx of cystoscopy Social History household members: spouse Smoking Status: Former smoker how long ago did patient quit smokin alcohol intake: never substance use type: does not use caffeine: Yes Type: carbonated beverages, coffee and tea frequency: does not exercise ROS ROS Narrative All review of systems were negative except as mentioned above in the history of present illness and the other review of systems. Vital Signs Vital Signs Vital Signs: 07/08/24 14:28 07/08/24 14:33 07/08/24 14:52 Temperature 36.6 C Temperature Source Oral Pulse Rate 66 61 Pulse Rate [Lying] Pulse Rate [Sitting (for 1 minute prior to obtaining)] Pulse Rate [Standing (for 1 minute prior to obtaining)] Respiratory Rate 15 16 Respiratory Effort Normal Respiratory Pattern Normal Blood Pressure 125/106 H 78/40 L Blood Pressure [Lying] Blood Pressure [Sitting (for 1 minute prior to obtaining)] Blood Pressure [Standing (for 1 minute prior to obtaining)] Blood Pressure Mean 112 52 Blood Pressure Mean [Lying] Blood Pressure Mean [Sitting (for 1 minute prior to obtaining)] Blood Pressure Mean [Standing (for 1 minute prior to obtaining)] Pulse Ox 95 94 Oxygen Delivery Method Room Air Room Air 07/08/24 14:57 07/08/24 15:14 07/08/24 15:36 Temperature Temperature Source Pulse Rate 60 61 Pulse Rate [Lying] Pulse Rate [Sitting (for 1 minute prior to obtaining)] Pulse Rate [Standing (for 1 minute prior to obtaining)] Respiratory Rate 19 H 22 H Respiratory Effort Respiratory Pattern Blood Pressure 92/49 L 92/54 L Blood Pressure [Lying] Blood Pressure [Sitting (for 1 minute prior to obtaining)] Blood Pressure [Standing (for 1 minute prior to obtaining)] Blood Pressure Mean 63 66 Blood Pressure Mean [Lying] Blood Pressure Mean [Sitting (for 1 minute prior to obtaining)] Blood Pressure Mean [Standing (for 1 minute prior to obtaining)] Pulse Ox 99 94 Oxygen Delivery Method Room Air Room Air Room Air 07/08/24 16:00 07/08/24 16:17 07/08/24 17:00 Temperature Temperature Source Pulse Rate 65 56 L Pulse Rate [Lying] 60 Pulse Rate [Sitting (for 1 minute prior to obtaining)] 57 L Pulse Rate [Standing (for 1 minute prior to obtaining)] 81 Respiratory Rate 16 12 Respiratory Effort Respiratory Pattern Blood Pressure 93/50 L 118/56 L Blood Pressure [Lying] 131/56 H Blood Pressure [Sitting (for 1 minute prior to obtaining)] 115/57 L Blood Pressure [Standing (for 1 minute prior to obtaining)] 140/74 H Blood Pressure Mean 64 76 Blood Pressure Mean [Lying] 81 Blood Pressure Mean [Sitting (for 1 minute prior to obtaining)] 76 Blood Pressure Mean [Standing (for 1 minute prior to obtaining)] 96 Pulse Ox 97 99 Oxygen Delivery Method Room Air Room Air 07/08/24 18:00 07/08/24 19:00 Temperature Temperature Source Pulse Rate 85 87 Pulse Rate [Lying] Pulse Rate [Sitting (for 1 minute prior to obtaining)] Pulse Rate [Standing (for 1 minute prior to obtaining)] Respiratory Rate 16 19 H Respiratory Effort Respiratory Pattern Blood Pressure 128/75 H 125/61 H Blood Pressure [Lying] Blood Pressure [Sitting (for 1 minute prior to obtaining)] Blood Pressure [Standing (for 1 minute prior to obtaining)] Blood Pressure Mean 92 82 Blood Pressure Mean [Lying] Blood Pressure Mean [Sitting (for 1 minute prior to obtaining)] Blood Pressure Mean [Standing (for 1 minute prior to obtaining)] Pulse Ox 97 100 Oxygen Delivery Method Room Air Room Air Weight Weight: 84 kg Body Mass Index (BMI) 23.1 Physical Exam Narrative - Physical Exam General: Alert, Oriented x3, Cooperative HEENT: Atraumatic, PERRLA, EOMI, Normocephalic Oral: Moist Mucosa, No Gingival or Mucosal Lesions/ Ulcerations Neck: Supple, No JVD, Negative Carotid Bruits Lungs: Clear to auscultation, Normal air movement Cardiovascular: Regular rate, Normal S1, Normal S2, 2 out of 6 systolic ejection murmur at the right upper sternal border Abdomen: Bowel Sounds Present, Soft, Non Tender, Non-Distended, No Hepato- splenomegaly Extremities: No clubbing, No cyanosis, No edema, Capillary Refill Less than 3 Seconds Skin: No rashes, No breakdown Musculoskeletal: No Tenderness to Palpation of Joints or Extremities Neurological: Neuro grossly intact Psych/Mental Status: Normal Affect, Appropriate Results Lab / Micro Data Attestation: I reviewed the patient's lab results. 07/08/24 15:30 07/08/24 15:30 Labs: Laboratory Results - last 24 hr 07/08/24 15:30: WBC 4.6, RBC 4.98, Hgb 11.2 L, Hct 36.0 L, MCV 72.3 L, MCH 22.5 L, MCHC 31.1 L, RDW Std Deviation 43.9, RDW Coeff of Aris 17.3 H, Plt Count 165, MPV TNP, Immature Gran % (Auto) 0.200, Neut % (Auto) 43.7 L, Lymph % (Auto) 43.4 H, [place] % (Auto) 9.9, Eos % (Auto) 1.7, Baso % (Auto) 1.1 H, Absolute Neuts (auto) 2.0, Absolute Lymphs (auto) 2.01, Nucleated RBC % 0, PT 14.3, INR 1.1, APTT 27.9, Sodium 140, Potassium 4.1, Chloride Direct 101, Carbon Dioxide 28.1, Anion Gap 10, BUN 17, Creatinine 1.07, Estim Creat Clear Calc 55.61, Est GFR (MDRD) Non-Af 66, BUN/Creatinine Ratio 16.3, Glucose 146 H, Calcium 9.4, Total Bilirubin 0.45, AST 19, ALT 10, Alkaline Phosphatase 75, Troponin T High Sens 20, NT pro BNP II 1969 H, Total Protein 7.5, Albumin 4.0, Globulin 3.6, Albumin/Globulin Ratio 1.1 07/08/24 17:35: Troponin T Hi Sens 2 Hr 16, Troponin T Hi Sens 2Hr Delta 5 EKG Initial EKG: Attestation: I personally reviewed and interpreted this EKG as follows: Prior EKG tracings: available for review EKG Rhythm Intrepretation: Sinus Rhythm Imaging Radiology Impression Chest X-Ray 07/08/24 15:40 IMPRESSION: COPD changes with no acute cardiopulmonary disease. Reading Location: [facility] Assessment & Plan Assessment/Plan (1) Near syncope: PLAN: Patient is fine at this time. His orthostatics and vitals were rather benign though from sitting to standing his pressure went from 115/57 to 140/74. Patient does not look volume depleted some hold off any additional IV fluids. On exam he did have a murmur which according him is new. So we will check a 2D echocardiogram. Patient also has a history of carotid stenting in the past. So we will check a duplex of his carotids make sure he does not have any critical stenosis. Though I feel ultimately his near syncope is probably due to him having a large meal in the afternoon and being 88. Though if his workup comes back not show anything significant anticipate him being ready for discharge on the third. PLAN: Plan PAD: History of carotid stenosis. Continue with clopidogrel and atorvastatin VTE prophylaxis: Low risk given his observation status CODE STATUS: Addressed with the patient. Patient wishes to be full code. Case discussed with patient's family members at bedside. Charges/Coding Visit Charges Inpatient E&M: 88295 Init Hosp L2
--- NOTE | 2024-07-08 20:10 | CASEMGMT ---
Care Management Face to Face with patient for initial transition planning/care coordination assessment in the ED.? This investigative writer introduced self and role at [facility]. Patient alert and oriented. Patient willing to participate in assessment and is able to answer all questions appropriately.? Care providers, pharmacy, and demographics verified. Patient?s another family member were present and patient?s also assisted with questions during times patient got distracted. Admitting Diagnosis: HTN, Syncope and collapse Other diagnosis history: Including but not limited to: Peripheral Artery Disease, NSVT, Acute Respiratory Failure with Hypoxia, OA of hip, Arthritis, Emphysema lung and Hyperlipidemia. PCP: Dr. Marcos Moraes Specialists: Urologist: Can?t remember name and Vascular: Dr. Meier Preferred Pharmacy: [phone] Insurance: Medical [place]/Medicare Prescription Benefit: Yes Living Will/HPOA: ?Yes LNOK: Patient?s , Natividad and son who resides in [place] and daughter who resides in [place]. All were identified as supports. Living Arrangements: Patient lives in a two-story house with his .? Patient has 13 stairs he has to go up/down to get to his bedroom and 2 stairs leading in/out of the house.? Both areas have handrails.? Patient?s reported patient is having increased difficulty going up and down the stairs and stated she is currently in the process of trying to get a stair glide. Transportation: Patient and patient?s both drive.? Patient?s stated she does most of the driving. DME: Amplifier for ears, standard cane, grab bar by tub, shower bench, RTS, HHS, and a lift chair. ?If patient continues to have dizzy spells, it may be beneficial for patient to have a rollator. HHC: None previously and not needed. SNF/Rehab: Yes; unknown what year: [facility] for a week following a hip repair. Community Resources: None Behavioral Health History: Denied. Patient goals: Patient wishes to discharge home, denies need for home health care at this time. Patient denies any further needs or concerns at this time. Disposition Plan: admission to acute; RN CM/SW to follow for discharge planning needs that may arise. Julisa Villavicencio, CARE DIRECTOR, DIXONAC OPERATOR
--- NOTE | 2024-07-08 20:29 | ECHOD_ITS ---
Reason For Study : SYNCOPE Procedure This was a 2D Doppler, Color Flow transthoracic echocardiogram. Exam performed portable in patient room. Left Ventricle Normal LV size. Mild concentric left ventricular hypertrophy. Severe inferior and posterior hypokinesis. Estimated LVEF 45%. Stage I diastolic dysfunction. Right Ventricle Normal right ventricle. Atria There is moderate biatrial dilatation. Suspect tiny PFO. Mitral Valve Trivial mitral valve insufficiency. Tricuspid Valve Mild tricuspid valve insufficiency. Right ventricular systolic pressure estimated to be 45 mmHg. Aortic Valve Moderate diffuse aortic valve calcification. Moderate aortic valve stenosis. Mean peak gradient 28 mmHg. Mild aortic valve regurgitation. Pulmonic Valve The pulmonic valve is not well visualized. Great Vessels The aortic root is not well visualized. Pericardium/Pleural No pericardial effusion. MMode/2D Measurements & Calculations LVIDd: 5.1 cm IVSd: 0.96 cm LVOT diam: 2.4 cm LVIDs: 4.4 cm LVPWd: 1.3 cm LVOT area: 4.6 cm2 RVDd: 3.7 cm FS: 15.2 % LA dimension: 5.4 cm LAV(MOD-bp): 36.3 ml LVAd ap4: 28.4 cm2 LAV(MOD-bp) Indexed: 17.1 ml/m2 LVLd ap4: 8.2 cm LAV(MOD-sp2): 25.7 ml EDV(MOD-sp4): 85.2 ml LAV(MOD-sp4): 40.1 ml EDV(sp4-el): 83.8 ml LVAs ap4: 20.9 cm2 LVLs ap4: 7.3 cm ESV(MOD-sp4): 52.9 ml ESV(sp4-el): 50.7 ml EF(MOD-sp4): 37.8 % EF(sp4-el): 39.6 % SV(MOD-sp4): 32.2 ml SV(sp4-el): 33.2 ml LA A4 area: 17.0 cm2 SI(MOD-sp4): 15.2 ml/m2 LA dimension(2D): 3.8 cm RA A4 area: 18.8 cm2 Time Measurements MV dec time: 0.18 sec Doppler Measurements & Calculations MV E max jez: 79.8 cm/sec Lat Peak E' Jez: 6.6 cm/sec Med Peak E' Jez: 6.1 cm/sec MV A max jez: 88.5 cm/sec E/E' lat: 12.2 E/E' med: 13.0 MV E/A: 0.90 MV V2 max: 88.5 cm/sec Ao V2 max: 347.6 cm/sec MV max P.1 mmHg MV dec slope: 442.5 cm/sec2 Ao max P.4 mmHg MV V2 mean: 56.1 cm/sec Ao V2 mean: 248.8 cm/sec MV mean P.4 mmHg Ao mean P.8 mmHg MV V2 VTI: 32.6 cm Ao V2 VTI: 79.9 cm PA V2 max: 101.6 cm/sec TR max jez: 270.1 cm/sec PA V2 mean: 72.8 cm/sec TR max P.2 mmHg ECHO/Echo Complete Interpretation Summary Mild concentric left ventricular hypertrophy. Severe inferior and posterior hypokinesis. Estimated LVEF 45%. Stage I diastoli c dysfunction. Mild tricuspid valve insufficiency. Right ventricular systolic pressure estimated to be 45 mmHg. Moderate aortic valve stenosis. Mean peak gradient 28 mmHg. Mild aortic valve r egurgitation. Suspect tiny PFO. Moderate biatrial dilatation. Ordering Physician: Derek Coleman Referring Physician: YONG KENT Performed By: Thalia Paige RCS
--- NOTE | 2024-07-08 20:29 | CDU_ITS ---
Reason For Study Reason For Study: Syncope Rt. Velocities/BP Lt. Velocities/BP Prox CCA 72.1/16.3 cm/sec. Prox CCA 67.4 cm/sec. Mid CCA 57.9/12.6 cm/sec. Mid CCA 63/5.8 cm/sec. Dist CCA 59.8/14.5 cm/sec. Dist CCA 34.3/3.8 cm/sec. Prox ICA 73/16.3 cm/sec. Left ICA, Known Occlusion. Mid ICA 88.8/26.2 cm/sec. Prox ECA 81.7 cm/sec. Dist ICA 105.1/32.7 cm/sec. Lt. Vert. 74/26.2 cm/sec. Rt. ICA/CCA = 1.82. Prox ECA 79.6/6.9 cm/sec. Rt. Vert. 46.5/13.5 cm/sec. Right Extracranial There is heterogeneous, irregular atherosclerotic plaque noted in the right common carotid artery. There is homogeneous, smooth atherosclerotic plaque noted in the right internal carotid artery. There is heterogeneous, irregular atherosclerotic plaque noted in the right external carotid artery. Antegrade flow is noted in the right vertebral artery. Left Extracranial There is homogeneous, smooth atherosclerotic plaque noted in the left common carotid artery. There is heterogeneous, irregular atherosclerotic plaque noted in the left internal carotid artery. The left internal carotid artery is occluded. There is heterogeneous, irregular atherosclerotic plaque noted in the left external carotid artery. Antegrade flow is noted in the left vertebral artery. Procedure This is a Carotid Duplex examination using B-mode, color flow and specral Doppler. Carotid Duplex 51716. Exam performed portable in patient room. VL/Carotid Duplex Ultrasound Interpretation Summary Mild (<50%) stenosis right extracranial internal carotid. Occlusion of the left extracranial internal carotid. Patent and antegrade vertebrals bilaterally. Ordering Physician: Derek Coleman Referring Physician: Marcos Moraes Performed By: Willinger, Elena, RVT
[2024-07-08 21:24] LABS: TROPONIN VARIANCE 4 HR 5; Troponin T High Sens 4 HR 15 ng/L (<=22)
[2024-07-08] MEDS: Atorvastatin Calcium 40 MG Tablet PO (22:38)
[2024-07-08] MEDS: Pantoprazole Sodium 40 MG Tablet PO (22:38)
[2024-07-08] MEDS: BRIMONIDINE 0.15% 5 ML Bottle 1 DRP OPHTHALMIC (22:38)
[2024-07-09 03:23] VITALS: BP 156/99; PULSE 91; RESP 18; TEMP 36.4; O2SAT 99
[2024-07-09 09:47] VITALS: BP 111/53; PULSE 67; RESP 18; TEMP 37.3; O2SAT 98
[2024-07-09] MEDS: Atenolol 25 MG Tablet PO (09:48)
[2024-07-09] MEDS: Pantoprazole Sodium 20 MG Tablet PO (09:48)
[2024-07-09] MEDS: Clopidogrel Bisulfate 75 MG Tablet PO (09:48)
[2024-07-09] MEDS: Timolol 0.25% 5ML OPTH.BTL 1 DRP OPHTHALMIC (09:48)
[2024-07-09] MEDS: Finasteride 5 MG Tablet PO (09:48)
[2024-07-09] MEDS: Triamcinolone 0.5% Cream 1 APPLIC TOPICAL (09:54)
--- NOTE | 2024-07-09 10:12 | PN.HOSP_ITS ---
Reason for Visit Reason for Visit: Diagnoses Syncope and collapse (07/08/24) Objective Data Objective Data Vital Signs: Vital Signs Temp Pulse Resp BP Pulse Ox O2 Del Method 99.2 F H 67 18 111/53 L 98 Room Air 07/09/24 09:47 07/09/24 09:47 07/09/24 09:47 07/09/24 09:47 07/09/24 09:47 07/09/24 09:47 Oxygen Delivery Method Room Air Weight: 169 lb 8.568 oz Body Mass Index (BMI) 20.6 Intake & Output: Intake and Output for Last 24 Hours 07/07/24 07/08/24 07/09/24 23:59 23:59 23:59 Intake Total 500 / 500 Output Total 300 / 300 Balance 500 / 200 -300 / -300 Lab / Micro Data 07/08/24 15:30 07/08/24 15:30 Labs: Laboratory Results - last 24 hr 07/08/24 15:30: WBC 4.6, RBC 4.98, Hgb 11.2 L, Hct 36.0 L, MCV 72.3 L, MCH 22.5 L, MCHC 31.1 L, RDW Std Deviation 43.9, RDW Coeff of Aris 17.3 H, Plt Count 165, MPV TNP, Immature Gran % (Auto) 0.200, Neut % (Auto) 43.7 L, Lymph % (Auto) 43.4 H, [place] % (Auto) 9.9, Eos % (Auto) 1.7, Baso % (Auto) 1.1 H, Absolute Neuts (auto) 2.0, Absolute Lymphs (auto) 2.01, Nucleated RBC % 0, PT 14.3, INR 1.1, APTT 27.9, Sodium 140, Potassium 4.1, Chloride Direct 101, Carbon Dioxide 28.1, Anion Gap 10, BUN 17, Creatinine 1.07, Estim Creat Clear Calc 55.61, Est GFR (MDRD) Non-Af 66, BUN/Creatinine Ratio 16.3, Glucose 146 H, Calcium 9.4, Total Bilirubin 0.45, AST 19, ALT 10, Alkaline Phosphatase 75, Troponin T High Sens 20, NT pro BNP II 1969 H, Total Protein 7.5, Albumin 4.0, Globulin 3.6, Albumin/Globulin Ratio 1.1 07/08/24 17:35: Troponin T Hi Sens 2 Hr 16, Troponin T Hi Sens 2Hr Delta 5 07/08/24 20:51: Troponin T Hi Sens 4Hr 15, Troponin T Hi Sens 4Hr Delta 5 Radiography Diagnostic Testing: Radiology Impression Chest X-Ray 07/08/24 15:40 IMPRESSION: COPD changes with no acute cardiopulmonary disease. Reading Location: [facility] Assessment & Plan Assessment/Plan (1) Near syncope: PLAN: 88-year-old gentleman was admitted with syncope after he felt dizzy blurry vision and then fell off a stool on the floor. Patient was shaking on the floor when he passed out. It lasted about 3 to 4 minutes. Patient is fine at this time. His orthostatics and vitals were rather benign though from sitting to standing his pressure went from 115/57 to 140/74. Patient does not look volume depleted some hold off any additional IV fluids. On exam he did have a murmur which according him is new. So we will check a 2D echocardiogram. Patient also has a history of carotid stenting in the past. So we will check a duplex of his carotids make sure he does not have any critical stenosis. Though I feel ultimately his near syncope is probably due to him having a large meal in the afternoon and being 88. Though if his workup comes back not show anything significant anticipate him being ready for discharge on the third. PLAN: Plan PAD: History of carotid stenosis. Continue with clopidogrel and atorvastatin VTE prophylaxis: Low risk given his observation status CODE STATUS: Addressed with the patient. Patient wishes to be full code. Case discussed with patient's family members at bedside.
--- NOTE | 2024-07-09 11:45 | DCINST_ITS ---
Discharge Instructions DC O2, CPAP, BIPAP needs Home O2 Discharge instructions: No Follow Up Care Test Results: Test results from this visit will be discussed in further detail at your follow- up appointment, if applicable. Discharge Plan Admission Admit Date/Time: 07/08/24 19:26 Primary Reason for Your Visit: Syncope. Attending Provider: Duarte Modi Primary Care Provider: Marcos Moraes Consulting Providers: Derek Coleman Instructions Additional Instructions / Restrictions: Syncope and near syncope. Discharge Orders/Prescriptions Prescriptions: New simethicone 80 mg Tablet,Chewable 80 mg PO PCHS PRN (Reason: BLOATING) Qty: 0 0RF Rx Instructions: [id number] Continued finasteride [Proscar] 5 mg tablet 5 mg PO DAILY brimonidine [Alphagan P] 0.1 % drops 1 drp OPHTHALMIC BID Betimol 0.25 % drops 1 drp OPHTHALMIC BID Prilosec OTC 20 mg tablet,delayed release (DR/EC) 20 mg PO DAILY ketoconazole 2 % shampoo TOPICAL Qty: 240 Patient Comments: SHAMPOO TWICE A WEEK DIRECTED nystatin 100,000 unit/gram cream 1 applic TOPICAL Qty: 45 Patient Comments: APPLY TO THE AFFECTED AREA(S) TWICE DAILY betamethasone, augmented 0.05 % cream 1 applic topical DAILY atorvastatin 40 mg tablet 40 mg PO DAILY Qty: 90 5RF clopidogrel 75 mg tablet 75 mg PO DAILY Qty: 90 3RF acetaminophen [Tylenol 8 Hour] 650 mg tablet extended release 650 mg PO Q12H PRN (Reason: pain) aspirin 81 mg tablet,delayed release (DR/EC) 81 mg PO DAILY oxybutynin chloride 5 mg tablet extended release 24hr 5 mg PO DAILY omeprazole 20 mg capsule,delayed release(DR/EC) 20 mg PO DAILY atenolol 25 mg tablet 25 mg PO DAILY Qty: 90 3RF Rx Instructions: Hold for heart less than 60 or systolic blood pressure less than 100 mmHg. Referrals / Follow Up: Marcos Moraes MD [Primary Care Provider] - Danny yT NP, SENIOR PROJECT ENGINEER-C [Med Staff - [facility] Practice Prof] - Within 2 Weeks Disposition Disposition (needs filled in before D/C Order can be placed): Home, Self Care
[2024-07-09 12:02] LABS: Anion Gap 8 (5-15); BUN 13 mg/dL (4-19); BUN/Creat Ratio 17.2 RATIO (10-20); Calcium 8.5 mg/dL (7.6-11.0); Carbon Dioxide 26.9 mmol/L (22.0-29.0); Chloride 106 mmol/L (96-108); Creatinine, Serum 0.75 mg/dL (0.70-1.20); EST Glomerular Filtration Rate 86 (>60); Estimated Creatinine Clearance 68.09 ml/min (50-250); Glucose 109 mg/dL (70-99); Magnesium 1.7 mg/dL (1.5-2.2); Phosphorus 2.8 mg/dL (2.7-4.5); Potassium 3.9 mmol/L (3.3-5.1); Sodium Level 142 mmol/L (133-145)
[2024-07-09] MEDS: Magnesium Sulfate 2 GM in Dextrose 5%-Water (100mL Bag) 100 ML IV (13:40)
--- NOTE | 2024-07-09 14:59 | PCM.DC.SUM ---
Providers Date of Admission: 07/08/24 Date of Discharge: 07/09/24 Primary Care Physician: Dr. Marcos Kent MD Reason For Visit: NEAR SYNCOPE Diagnosis Discharge Diagnosis (1) Near syncope: Status: Acute Code(s): R55 - Syncope and collapse Plan: 88-year-old gentleman was admitted with syncope after he felt dizzy blurry vision and then fell off a stool on the floor. Patient was shaking on the floor when he passed out. It lasted about 3 to 4 minutes as per the witness his . Patient was admitted to PCU floor. Orthostatic was negative. Patient has significant murmur for which echo was done. Echo shows EF 45%, stage I diastolic dysfunction, mild concentric LVH. Moderate aortic stenosis, mild AI. Mean aortic valve gradient 28 mmHg. Mild TR, RVSP 45 mmHg. Moderate biatrial dilatation with suspected tiny PFO. Patient advised to follow-up in [place] cardiology in [address] Reyes and Danny TY NP. Carotid duplex shows mild less than 50% right ICA stenosis for which she had surgery. 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 Discharge medication reconciliation done. Discharge follow-up instructions completed. Discharge process discussed with the patient and all questions were answered to patient's satisfaction. Follow with PCP in 1 to 2 weeks Total time spent, exact 35 minutes on discharge meds reconciliation, examination, coordination of care with nurses and ancillary staff, review of imaging and blood test and discussion with the patient on follow-up instructions. Plan PAD: History of carotid stenosis. Continue with clopidogrel and atorvastatin VTE prophylaxis: Low risk given his observation status CODE STATUS: Addressed with the patient. Patient wishes to be full code. Discharge medication reconciliation done. Discharge follow-up instructions completed. Discharge process discussed with the patient and all questions were answered to patient's satisfaction. Follow with PCP in 1 to 2 weeks Total time spent, exact 35 minutes on discharge meds reconciliation, examination, coordination of care with nurses and ancillary staff, review of imaging and blood test and discussion with the patient on follow-up instructions. Laboratory Results 07/08/24 15:30: WBC 4.6, RBC 4.98, Hgb 11.2 L, Hct 36.0 L, MCV 72.3 L, MCH 22.5 L, MCHC 31.1 L, RDW Std Deviation 43.9, RDW Coeff of Aris 17.3 H, Plt Count 165, MPV TNP, Immature Gran % (Auto) 0.200, Neut % (Auto) 43.7 L, Lymph % (Auto) 43.4 H, [place] % (Auto) 9.9, Eos % (Auto) 1.7, Baso % (Auto) 1.1 H, Absolute Neuts (auto) 2.0, Absolute Lymphs (auto) 2.01, Nucleated RBC % 0, PT 14.3, INR 1.1, APTT 27.9, Sodium 140, Potassium 4.1, Chloride Direct 101, Carbon Dioxide 28.1, Anion Gap 10, BUN 17, Creatinine 1.07, Estim Creat Clear Calc 55.61, Est GFR (MDRD) Non-Af 66, BUN/Creatinine Ratio 16.3, Glucose 146 H, Calcium 9.4, Total Bilirubin 0.45, AST 19, ALT 10, Alkaline Phosphatase 75, Troponin T High Sens 20, NT pro BNP II 1969 H, Total Protein 7.5, Albumin 4.0, Globulin 3.6, Albumin/Globulin Ratio 1.1 07/08/24 17:35: Troponin T Hi Sens 2 Hr 16, Troponin T Hi Sens 2Hr Delta 5 07/08/24 20:51: Troponin T Hi Sens 4Hr 15, Troponin T Hi Sens 4Hr Delta 5 07/09/24 11:12: Sodium 142, Potassium 3.9, Chloride Direct 106, Carbon Dioxide 26.9, Anion Gap 8, BUN 13, Creatinine 0.75, Estim Creat Clear Calc 68.09, Est GFR (MDRD) Non-Af 86, BUN/Creatinine Ratio 17.2, Glucose 109 H, Calcium 8.5, Phosphorus 2.8, Magnesium 1.7 Medications at Discharge Home Medications brimonidine 0.1 % eye drops (Alphagan P) 1 drp ophthalmic (eye) BID Glaucoma 05/17/18 finasteride 5 mg tablet (Proscar) 5 mg PO DAILY prostate 05/17/18 omeprazole magnesium 20 mg tablet,delayed release (Prilosec OTC) 20 mg PO DAILY Gerd 05/17/18 timolol 0.25 % eye drops (Betimol) 1 drp ophthalmic (eye) BID glaucoma 05/17/18 ketoconazole 2 % shampoo topical #240 mL 01/03/19 nystatin 100,000 unit/gram topical cream 1 applic topical #45 grams 01/03/19 betamethasone, augmented 0.05 % topical cream 1 applic topical DAILY 11/17/21 atorvastatin 40 mg tablet 40 mg PO DAILY cholesterol #90 tabs 05/31/22 clopidogrel 75 mg tablet 75 mg PO DAILY blood thinner #90 tabs 05/31/22 acetaminophen 650 mg tablet,extended release (Tylenol 8 Hour) 650 mg PO Q12H PRN pain 06/10/23 aspirin 81 mg tablet,delayed release 81 mg PO DAILY heart health 07/08/24 omeprazole 20 mg capsule,delayed release 20 mg PO DAILY 07/08/24 oxybutynin chloride 5 mg tablet,extended release 24 hr 5 mg PO DAILY bladder 07/08/24 atenolol 25 mg tablet 25 mg PO DAILY blood pressure #90 tabs 07/09/24 simethicone 80 mg chewable tablet 80 mg PO PCHS PRN BLOATING #0 tabs 07/09/24 Physical Exam Narrative Seen and examined Patient is on baseline. He has chronic urge incontinence. Denies dysuria. Denies chest pain or shortness of breath Physical exam General: Alert, Oriented x3, Cooperative HEENT: Atraumatic, PERRLA, EOMI, Normocephalic Oral: No Gingival or Mucosal Lesions/ Ulcerations Neck: Supple, No JVD, Negative Carotid Bruits Chest wall/Lungs: Air entry diminished in bilateral lung bases. No crepitation/rhonchi Cardiovascular: Regular rate, Regular Rhythm, Normal S1, Normal S2, aortic stenosis murmur grade 4/6 with radiation to carotids. Mild TR Abdomen: Bowel Sounds Present, Soft, Non Tender, Non-Distended : No dysuria. No renal angle tenderness. No suprapubic tenderness. Extremities: No edema, Capillary Refill Less than 3 Seconds Skin: No rashes, No breakdown Musculoskeletal: No Tenderness to Palpation of Joints or Extremities Neurological: Cranial nerves II-XII grossly intact, DTR 2+/4. No acute focal neurological deficit. Psych/Mental Status: Normal Affect, Appropriate. Weight / BMI Weight Weight: 169 lb 8.568 oz Body Mass Index (BMI) 20.6 ABG / Lab / Microbiology Data 07/08/24 15:30 07/09/24 11:12 Laboratory: Laboratory Results - last 24 hr 07/08/24 15:30: WBC 4.6, RBC 4.98, Hgb 11.2 L, Hct 36.0 L, MCV 72.3 L, MCH 22.5 L, MCHC 31.1 L, RDW Std Deviation 43.9, RDW Coeff of Aris 17.3 H, Plt Count 165, MPV TNP, Immature Gran % (Auto) 0.200, Neut % (Auto) 43.7 L, Lymph % (Auto) 43.4 H, [place] % (Auto) 9.9, Eos % (Auto) 1.7, Baso % (Auto) 1.1 H, Absolute Neuts (auto) 2.0, Absolute Lymphs (auto) 2.01, Nucleated RBC % 0, PT 14.3, INR 1.1, APTT 27.9, Sodium 140, Potassium 4.1, Chloride Direct 101, Carbon Dioxide 28.1, Anion Gap 10, BUN 17, Creatinine 1.07, Estim Creat Clear Calc 55.61, Est GFR (MDRD) Non-Af 66, BUN/Creatinine Ratio 16.3, Glucose 146 H, Calcium 9.4, Total Bilirubin 0.45, AST 19, ALT 10, Alkaline Phosphatase 75, Troponin T High Sens 20, NT pro BNP II 1969 H, Total Protein 7.5, Albumin 4.0, Globulin 3.6, Albumin/Globulin Ratio 1.1 07/08/24 17:35: Troponin T Hi Sens 2 Hr 16, Troponin T Hi Sens 2Hr Delta 5 07/08/24 20:51: Troponin T Hi Sens 4Hr 15, Troponin T Hi Sens 4Hr Delta 5 07/09/24 11:12: Sodium 142, Potassium 3.9, Chloride Direct 106, Carbon Dioxide 26.9, Anion Gap 8, BUN 13, Creatinine 0.75, Estim Creat Clear Calc 68.09, Est GFR (MDRD) Non-Af 86, BUN/Creatinine Ratio 17.2, Glucose 109 H, Calcium 8.5, Phosphorus 2.8, Magnesium 1.7 Radiography Diagnostic Testing: Radiology Impression Chest X-Ray 07/08/24 15:40 IMPRESSION: COPD changes with no acute cardiopulmonary disease. Reading Location: [facility] Carotid Duplex 07/08/24 20:29 Interpretation Summary Mild (<50%) stenosis right extracranial internal carotid. Occlusion of the left extracranial internal carotid. Patent and antegrade vertebrals bilaterally. Ordering Physician: Derek Coleman Referring Physician: Marcos Kent Performed By: Elena Edge, T Echocardiogram 07/08/24 20:29 Interpretation Summary Mild concentric left ventricular hypertrophy. Severe inferior and posterior hypokinesis. Estimated LVEF 45%. Stage I diastolic dysfunction. Mild tricuspid valve insufficiency. Right ventricular systolic pressure estimated to be 45 mmHg. Moderate aortic valve stenosis. Mean peak gradient 28 mmHg. Mild aortic valve regurgitation. Suspect tiny PFO. Moderate biatrial dilatation. Ordering Physician: Derek Coleman Referring Physician: MARCOS KENT Performed By: Thalia Paige [facility] D/C Instructions DC O2, CPAP, BIPAP Needs Home O2 Discharge instructions: No Meaningful Use Info Meaningful Use Meaningful Use Diagnoses (Choose all that apply): None applicable Ischemic Stroke Statin Dosing Therapy Reference: STATIN DOSE THERAPY REFERENCE: * Patients > 75 years receive moderate or high dose statin therapy. * Patients 75 years or YOUNGER should receive HIGH intensity statin dose unless contraindicated. You will be required to document reason for non-treatment if statin daily dose does not meet guidelines. HIGH DOSE STATIN THERAPY DAILY Atorvastatin > than or = to 40 mg Rosuvastatin > than or = to 20 mg Amlodipine + Atorvastatin > than or = to 2.5/40 mg Ezetimibe + Simvastatin 10/80 mg Simvastatin 80mg Discharge Plan Admission Admit Date/Time: 07/08/24 19:26 Primary Reason for Your Visit: Syncope. Attending Provider: Duarte Modi Primary Care Provider: Marcos Kent Consulting Providers: Derek Coleman Instructions Additional Instructions / Restrictions: Syncope and near syncope. Discharge Orders/Prescriptions Prescriptions: New simethicone 80 mg Tablet,Chewable 80 mg PO PCHS PRN (Reason: BLOATING) Qty: 0 0RF Rx Instructions: [id number] Continued finasteride [Proscar] 5 mg tablet 5 mg PO DAILY brimonidine [Alphagan P] 0.1 % drops 1 drp OPHTHALMIC BID Betimol 0.25 % drops 1 drp OPHTHALMIC BID Prilosec OTC 20 mg tablet,delayed release (DR/EC) 20 mg PO DAILY ketoconazole 2 % shampoo TOPICAL Qty: 240 Patient Comments: SHAMPOO TWICE A WEEK DIRECTED nystatin 100,000 unit/gram cream 1 applic TOPICAL Qty: 45 Patient Comments: APPLY TO THE AFFECTED AREA(S) TWICE DAILY betamethasone, augmented 0.05 % cream 1 applic topical DAILY atorvastatin 40 mg tablet 40 mg PO DAILY Qty: 90 5RF clopidogrel 75 mg tablet 75 mg PO DAILY Qty: 90 3RF acetaminophen [Tylenol 8 Hour] 650 mg tablet extended release 650 mg PO Q12H PRN (Reason: pain) aspirin 81 mg tablet,delayed release (DR/EC) 81 mg PO DAILY oxybutynin chloride 5 mg tablet extended release 24hr 5 mg PO DAILY omeprazole 20 mg capsule,delayed release(DR/EC) 20 mg PO DAILY atenolol 25 mg tablet 25 mg PO DAILY Qty: 90 3RF Rx Instructions: Hold for heart less than 60 or systolic blood pressure less than 100 mmHg. Referrals / Follow Up: Marcos Kent MD [Primary Care Provider] - Danny Ty SUPERVISOR PLATING AND POINT ASSEMBLY, SUPERVISOR PLATING AND POINT ASSEMBLY-C [Med Staff - [facility] Practice Prof] - Within 2 Weeks Disposition Disposition (needs filled in before D/C Order can be placed): Home, Self Care Charges/Coding Visit Charges Inpatient E&M: 48491 Disch Hosp >30min
[2024-07-09] MEDS: SimETHICONE 80 MG Chewable Tablet PO (15:46)
[2024-07-09 15:47] VITALS: BP 142/72; PULSE 62; RESP 18; TEMP 37.2; O2SAT 98
--- NOTE | 2024-07-09 16:30 | CASEMGMT ---
Patient has order for discharge. RENÉ CM in to discuss needs at discharge. Patient declining HHC at discharge. Patient states he would like walker at discharge, prefers [facility]. Patient and had no further questions or concerns. RENÉ CLEMENTS sent referral to [facility] via [facility] and arrranged for walker to be delivered to room.
== END 2024-07-09 17:50 | disposition home or self-care (01) ==
LOC: ED 19:08 → PCU 19:52
PROVIDERS: Emergency Provider Emergency Medicine; PCP Family Medicine; Visit Provider Internal Medicine
DX: R55 Syncope and collapse (principal); J43.9 Emphysema, unspecified; I10 Essential (primary) hypertension; E78.5 Hyperlipidemia, unspecified; Z87.891 Personal history of nicotine dependence; H53.8 Other visual disturbances; Z79.899 Other long term (current) drug therapy; Z79.82 Long term (current) use of aspirin; Z79.02 Long term (current) use of antithrombotics/antiplatelets; D64.9 Anemia, unspecified; I73.9 Peripheral vascular disease, unspecified; I08.3 Combined rheumatic disorders of mitral, aortic and tricuspid valves
CPT/HCPCS: 36415; 71046; 80048; 80053; 83735; 83880; 84100; 84484; 85025; 85610; 85730; 93005; 93306; 93880; 96360; 97802; 99221; 99285; A4216; G0378

== ENCOUNTER 2024-07-24 16:53 | Emergency (ER) | payer MEDICARE, SELFPAY ==
[2024-07-24 16:53] VITALS: BP 112/56; PULSE 66; RESP 15; TEMP 36.6; O2SAT 98; BMI 22.1
--- NOTE | 2024-07-24 17:23 | EKG12_ITS ---
Test Reason : Blood Pressure : */* mmHG Vent. Rate : 66 BPM Atrial Rate : 66 BPM P-R Int : 162 ms QRS Dur : 88 ms QT Int : 452 ms P-R-T Axes : 16 22 7 degrees QTcB Int : 473 ms Normal sinus rhythm Normal ECG Confirmed by ANGEL GUPTA, MOHAN ([id number]), editor greeting card MAXWELL LION ([id number]) on 07/25/2024 8:50:56 AM Referred By: Confirmed By: MOHAN ORTIZ MD
--- NOTE | 2024-07-24 17:28 | EX.ED.DYSGE1 ---
HPI History of Present Illness Chief Complaint: Abd Pain Informant: patient, spouse/S.O. and EMS Narrative Narrative: 88-year-old male recently admitted to the hospital after a near syncopal episode during which he was transiently hypotensive, he was kept overnight and discharged the next morning, he went to his PCP to have a follow-up appointment today. While there they checked his vital signs his blood pressure was 60/38 with a pulse of 74, so they called EMS and sent him here to the ER. The patient states he has been asymptomatic today with regards to feeling lightheaded or near syncopal. He states for the past week or two, he has been bloated off and on. When he is he belches often. He denies any abdominal pain, nausea, vomiting. He intermittently is constipated as well, citing that often his stools are hard. He is taking Colace for that, no other stool softening or laxative agents. He has had no bright red blood per rectum or melena. He denies any exertional chest discomfort or dyspnea. No focal neurologic symptoms. He states other than feeling a little bloated he feels fine right now. Per EMS, his initial blood pressure for them was 90/36 with a heart rate of 70 and pulse ox 95% on room air, and upon arrival here his blood pressure for them was 110/50. For us, it is 112/56. [facility] Medical History History of peripheral arterial disease Syncope and collapse Peripheral arterial disease NSVT (nonsustained ventricular tachycardia) Left carotid artery stenosis Essential (primary) hypertension Former tobacco use ANGLE (acute kidney injury) Acute respiratory failure with hypoxia Emphysema lung Glaucoma OA (osteoarthritis) of hip Microcytic anemia Hyperlipidemia History of kidney stones Hematuria BPH (benign prostatic hyperplasia) Arthritis Abnormal stress test Home Medications ?Medication ?Instructions ?Recorded ?Last Taken ?Type brimonidine 0.1 % eye drops 1 drp ophthalmic (eye) BID Glaucoma 05/17/18 09/12/18 08:00 History (Alphagan P) 1 drop finasteride 5 mg tablet (Proscar) 5 mg PO DAILY prostate 05/17/18 09/12/18 08:00 History 5 mg omeprazole magnesium 20 mg 20 mg PO DAILY Gerd 05/17/18 09/12/18 08:00 History tablet,delayed release (Prilosec 20 mg OTC) timolol 0.25 % eye drops (Betimol) 1 drp ophthalmic (eye) BID glaucoma 05/17/18 09/12/18 08:00 History 1 drop ketoconazole 2 % shampoo topical #240 mL 01/03/19 Unknown History nystatin 100,000 unit/gram topical 1 applic topical #45 grams 01/03/19 Unknown History cream betamethasone, augmented 0.05 % 1 applic topical DAILY 11/17/21 Unknown History topical cream atorvastatin 40 mg tablet 40 mg PO DAILY cholesterol #90 tabs 05/31/22 Unknown Rx clopidogrel 75 mg tablet 75 mg PO DAILY blood thinner #90 05/31/22 Unknown Rx tabs acetaminophen 650 mg 650 mg PO Q12H PRN pain 06/10/23 Unknown History tablet,extended release (Tylenol 8 Hour) aspirin 81 mg tablet,delayed 81 mg PO DAILY heart health 07/08/24 Unknown History release omeprazole 20 mg capsule,delayed 20 mg PO DAILY 07/08/24 Unknown History release oxybutynin chloride 5 mg 5 mg PO DAILY bladder 07/08/24 Unknown History tablet,extended release 24 hr atenolol 25 mg tablet 25 mg PO DAILY blood pressure #90 07/09/24 Unknown Rx Held on 07/24/24. tabs Instructions: until you follow up and are told otherwise simethicone 80 mg chewable tablet 80 mg PO PCHS PRN BLOATING #0 tabs 07/09/24 Unknown Rx Allergy/AdvReac Type Severity Reaction Status Date / Time No Known Allergies Allergy Verified 07/24/24 16:53 Family History Mother Heart disease Surgical History History of right common carotid artery stent placement (~11/2022) H/O colonoscopy with polypectomy (2018) Hx of right inguinal hernia repair History of total right hip arthroplasty History of prostate surgery History of back surgery Hx of lithotripsy Hx of cystoscopy Social History household members: spouse Smoking Status: Former smoker how long ago did patient quit smokin alcohol intake: never substance use type: does not use caffeine: Yes Type: carbonated beverages, coffee and tea frequency: does not exercise ROS ROS ED Constitutional Constitutional ED: Denies chills or fever(s) Eyes Eyes: Denies change in vision or diplopia ENT ENT ED: Denies rhinorrhea or sore throat Cardiovascular Cardiovascular: Denies chest pain or palpitations Respiratory/Chest Respiratory/Chest: Denies cough or dyspnea Gastrointestinal Gastrointestinal: Reports belching, bloating and constipation; Denies abdominal pain, diarrhea, melena, nausea or vomiting Genitourinary Genitourinary ED: Denies dysuria or hematuria Musculoskeletal Musculoskeletal: Denies back pain or neck pain Integumentary Denies abscess or rash Neurologic Neurologic: Denies headache(s), paresthesias or weakness Psychiatric Psychiatric: Denies anxiety or suicidal thoughts EXAM Physical Exam Const Vital Signs: 07/24/24 16:53 07/24/24 18:52 07/24/24 20:00 Temperature 97.8 F Temperature Source Oral Pulse Rate 66 63 Pulse Rate [Lying] Pulse Rate [Sitting (for 1 minute prior to obtaining)] Pulse Rate [Standing (for 1 minute prior to obtaining)] Respiratory Rate 15 15 Blood Pressure 112/56 L 120/62 156/71 H Blood Pressure [Lying] Blood Pressure [Sitting (for 1 minute prior to obtaining)] Blood Pressure [Standing (for 1 minute prior to obtaining)] Blood Pressure Mean 74 81 99 Blood Pressure Mean [Lying] Blood Pressure Mean [Sitting (for 1 minute prior to obtaining)] Blood Pressure Mean [Standing (for 1 minute prior to obtaining)] Pulse Ox 98 99 Oxygen Delivery Method Room Air Room Air 07/24/24 20:28 07/24/24 21:46 Temperature 97.8 F Temperature Source Pulse Rate 63 Pulse Rate [Lying] 76 Pulse Rate [Sitting (for 1 minute prior to obtaining)] 76 Pulse Rate [Standing (for 1 minute prior to obtaining)] 92 Respiratory Rate 15 Blood Pressure 156/71 H Blood Pressure [Lying] 156/71 H Blood Pressure [Sitting (for 1 minute prior to obtaining)] 154/92 H Blood Pressure [Standing (for 1 minute prior to obtaining)] 196/102 H Blood Pressure Mean 99 Blood Pressure Mean [Lying] 99 Blood Pressure Mean [Sitting (for 1 minute prior to obtaining)] 112 Blood Pressure Mean [Standing (for 1 minute prior to obtaining)] 133 Pulse Ox 99 Oxygen Delivery Method Positive well nourished and well developed Constitutional Narrative: Well-appearing, conversive in full sentences, sitting upright in bed no distress General Appearance ED: well developed and NAD HEENT Reports moist mucous membranes normocephalic and atraumatic Eyes PERRL and EOMs intact bilaterally Neck full ROM and supple Resp normal respiratory effort and clear to auscultation bilaterally Cardio regular rate, regular rhythm and peripheral pulses 2+ throughout Heart Sounds: murmur systolic III/ crescendo-decrescendo left sternal border GI non-tender and non-distended GI Narrative: Palpable ventral hernia without tenderness or overlying erythema. Nontender, patient belches multiple times throughout palpation of the abdomen. Auscultation: normoactive bowel sounds Palpation: soft Back/Spine no CVA tenderness General Back: other FROM Extremity normal to inspection General Extremety ED: Negative for edema, pulses abnormal or tenderness General Extremity: Negative for edema or pulses abnormal Neuro oriented x3, CN's II-XII intact bilaterally and no sensory deficits noted Sensorium / Orientation: awake and alert Motor Exam: strength 5/5 throughout Skin no rashes or lesions noted and no wounds MDM MDM MDM Narrative Medical decision making narrative: I ran some labs and infection screen, as well as cardiac workup. His EKG shows sinus rhythm at 66 and is otherwise normal. 2 sequential troponins are normal his lactate is normal, and the rest of his tests are normal except for his urine which shows some indicators of infection. He states he has had some urinary frequency for weeks or months and trouble making a good stream of urine but no natasha dysuria or new urinary symptoms. I given a dose of IV Rocephin to cover for possibility infection symptoms for culture, and given that he was a little prerenal, gave him some fluids after doing orthostatics. His blood pressures were fine for hours here, he never had an episode of hypotension. In fact, his orthostatics were not only normal, when standing his blood pressure went up to 196/102. He feels well. He wants to go home. I did an acute abdominal series in the process of all this workup as well, my interpretation shows nonspecific bowel gas pattern and no acute signs of pneumonia. Radiology in agreement adding that he has a predilection of significant hard stool in the right side. Patient was asking for some Gas-X which we will give him, and he can follow-up as an outpatient. We discussed reasons to return, basically if he has symptoms of near syncope again, and at this time I recommend that he discontinue his atenolol until he follows up. It looks like at discharge, he was post to only hold it for bradycardia or hypotension. Lab Data Attestation: I reviewed the patient's lab results. Labs: Laboratory Results - last 24 hr 07/24/24 07/24/24 07/24/24 16:58 17:39 17:43 WBC 4.2 L RBC 4.56 L Hgb 10.1 L Hct 32.7 L MCV 71.7 L MCH 22.1 L MCHC 30.9 L RDW Std Deviation 44.5 H RDW Coeff of Aris 17.6 H Plt Count 167 Immature Gran % (Auto) 0.200 Neut % (Auto) 43.7 L Lymph % (Auto) 40.3 Doddridge % (Auto) 13.4 H Eos % (Auto) 1.7 Baso % (Auto) 0.7 Absolute Neuts (auto) 1.8 L Absolute Lymphs (auto) 1.68 Nucleated RBC % 0 Sodium 141 Potassium 3.9 Chloride 105 Carbon Dioxide 27.4 Anion Gap 9 BUN 21 H Creatinine 1.06 Estim Creat Clear Calc 55.26 Est GFR (MDRD) Non-Af 67 BUN/Creatinine Ratio 19.8 Glucose 136 H Lactic Acid 1.3 Calcium 8.9 Total Bilirubin 0.22 AST 20 ALT 10 Alkaline Phosphatase 76 Troponin T High Sens 18 D Troponin T Hi Sens 2 Hr Total Protein 7.2 Albumin 3.9 Globulin 3.3 Albumin/Globulin Ratio 1.2 Urine Color Urine Clarity Urine pH Ur Specific Oakley Urine Protein Urine Glucose (UA) Urine Ketones Urine Occult Blood Urine Nitrite Urine Bilirubin Urine Urobilinogen Ur Leukocyte Esterase Urine RBC Urine WBC Ur Squamous Epith Cells Urine Bacteria Urine Mucus POC Glucose 129 H 07/24/24 07/24/24 17:48 20:25 WBC RBC Hgb Hct MCV MCH MCHC RDW Std Deviation RDW Coeff of Aris Plt Count Immature Gran % (Auto) Neut % (Auto) Lymph % (Auto) Doddridge % (Auto) Eos % (Auto) Baso % (Auto) Absolute Neuts (auto) Absolute Lymphs (auto) Nucleated RBC % Sodium Potassium Chloride Carbon Dioxide Anion Gap BUN Creatinine Estim Creat Clear Calc Est GFR (MDRD) Non-Af BUN/Creatinine Ratio Glucose Lactic Acid Calcium Total Bilirubin AST ALT Alkaline Phosphatase Troponin T High Sens Troponin T Hi Sens 2 Hr 18 Total Protein Albumin Globulin Albumin/Globulin Ratio Urine Color Yellow Urine Clarity Sl. Cloudy Urine pH 5.0 Ur Specific Oakley 1.020 Urine Protein 30 H Urine Glucose (UA) Normal Urine Ketones Negative Urine Occult Blood 10 H Urine Nitrite Negative Urine Bilirubin Negative Urine Urobilinogen 1 H Ur Leukocyte Esterase 100 H Urine RBC 0-5 SEEN Urine WBC 10-25 SEEN Ur Squamous Epith Cells 5-10 SEEN Urine Bacteria 0 SEEN Urine Mucus 0 SEEN POC Glucose Radiography Diagnostic Testing: Clinical Impression(s) from Imaging Studies Acute Abdomen Series 07/24/24 17:55 IMPRESSION: No free air identified. Moderate appearing colonic stool ascending colon. No gaseous distention of bowel. Reading Location: [id number] Rhythm Strip Rhythm Strip: Sinus Rhythm Rate: 65 Ectopy: None EKG Initial EKG: Attestation: I personally reviewed and interpreted this EKG as follows: Interpretation: Sinus Rhythm and No Acute Injury Pattern Comments: Nml axis & intervals; nml EKG Discharge Plan Triage Chief Complaint: Abd Pain ED Provider: Agustin Reyes Dx/Rx/DC Orders Clinical Impression: Transient hypotension, Mild dehydration, Constipation, Abdominal bloating Instructions: Hypotension Dc Prescriptions: Continued finasteride [Proscar] 5 mg tablet 5 mg PO DAILY brimonidine [Alphagan P] 0.1 % drops 1 drp OPHTHALMIC BID Betimol 0.25 % drops 1 drp OPHTHALMIC BID Prilosec OTC 20 mg tablet,delayed release (DR/EC) 20 mg PO DAILY ketoconazole 2 % shampoo TOPICAL Qty: 240 Patient Comments: SHAMPOO TWICE A WEEK DIRECTED nystatin 100,000 unit/gram cream 1 applic TOPICAL Qty: 45 Patient Comments: APPLY TO THE AFFECTED AREA(S) TWICE DAILY betamethasone, augmented 0.05 % cream 1 applic topical DAILY atorvastatin 40 mg tablet 40 mg PO DAILY Qty: 90 5RF clopidogrel 75 mg tablet 75 mg PO DAILY Qty: 90 3RF acetaminophen [Tylenol 8 Hour] 650 mg tablet extended release 650 mg PO Q12H PRN (Reason: pain) aspirin 81 mg tablet,delayed release (DR/EC) 81 mg PO DAILY oxybutynin chloride 5 mg tablet extended release 24hr 5 mg PO DAILY omeprazole 20 mg capsule,delayed release(DR/EC) 20 mg PO DAILY simethicone 80 mg Tablet,Chewable 80 mg PO PCHS PRN (Reason: BLOATING) Qty: 0 0RF Rx Instructions: [id number] Held atenolol 25 mg tablet 25 mg PO DAILY Qty: 90 3RF Hold Instructions: until you follow up and are told otherwise Rx Instructions: Hold for heart less than 60 or systolic blood pressure less than 100 mmHg. Primary Care Provider: Marcos Moraes Referrals: Marcos Moraes MD [Primary Care Provider] - As soon as possible Print Language: Korean Disposition Disposition: Home, Self Care
[2024-07-24 17:45] LABS: Absolute Lymphocyte Count 1.68 X10^3/uL (0.83-4.51); Absolute Neutrophil Count 1.8 X10^3/uL (2.0-7.7); Basophil# 0.03 X10^3/uL; Basophil% 0.7 % (0-1); Eosinophil# 0.07 X10^3/uL; Eosinophils% 1.7 % (0-5); Hematocrit 32.7 % (40-54); Hemoglobin 10.1 g/dL (13.0-16.5); Lymphocyte # 1.68 X10^3/ul (0.83-4.51); Lymphocyte % 40.3 % (19-41); Mean Corp Hgb Conc 30.9 g/dL (32-36); Mean Corpuscular Hgb 22.1 pg (27.0-32.0); Mean Corpuscular Volume 71.7 fL (80-94); Monocyte# 0.56 X10^3/uL; Monocyte% 13.4 % (0-10); NRBC Flagged by Analyzer 0 % (0-5); Neutrophil # 1.82 X10^3/uL (2.7-7.7); Neutrophil % 43.7 % (47-70); Platelet Count 167 K/mm3 (150-450); RBC Distribution Width CV 17.6 % (11.6-14.6); RBC Distribution Width SD 44.5 fl (35.1-43.9); Red Blood Count 4.56 M/mm3 (4.6-6.2); White Blood Count 4.2 K/mm3 (4.4-11.0)
--- NOTE | 2024-07-24 17:55 | RAD_ITS ---
PROCEDURE: ACUTE ABDOMEN INC CHEST 07/24/2024 REASON FOR EXAM: BLOATING TECHNIQUE: PA upright view of the chest, AP upright view of the abdomen, 2 supine AP views to include the entire abdomen and pelvis, 4 total images COMPARISON: 07/08/2024 FINDINGS: Patient is rotated to the right. No acute cardiopulmonary disease. Ectatic thoracic aorta with atherosclerotic change again noted. No free air identified. Moderate appearing colonic stool ascending colon. No gaseous distention of bowel. Rightward curvature lumbar spine with multilevel spondylosis/discogenic change. Status post right hip replacement partially imaged. Previous left herniorrhaphy. Vascular calcifications noted. RAD/Acute Abdomen Inc Chest IMPRESSION: No free air identified. Moderate appearing colonic stool ascending colon. No g aseous distention of bowel. Reading Location: [id number]
[2024-07-24 17:57] LABS: Bacteria 0 SEEN /hpf (None Seen); Mucous, Urine 0 SEEN /hpf (<or=2+)
[2024-07-24 18:02] LABS: Color, Urine Yellow (Yellow); Glucose, Dipstick Normal (Normal); Ketone-Dipstick Negative (Negative); Leukocyte Esterase-Dipstick 100 /ul (Negative); Nitrite-Dipstick Negative (Negative); Occult Blood-Urine 10 /ul (Negative); Protein-Dipstick 30 mg/dl (Negative); Urine Bilirubin Dipstick Negative (Negative); Urine Clarity Sl. Cloudy (Clear); Urine Urobilinogen 1 mg/dl (Normal)
[2024-07-24 18:06] LABS: Bedside Glucose 129 mg/dL (74-106)
[2024-07-24 18:14] LABS: Squamous Epithelial Cells - UA 5-10 SEEN /hpf (0-5); White Blood Cells 10-25 SEEN /hpf (0-5)
[2024-07-24 18:15] LABS: Red Blood Cells-Urine 0-5 SEEN /hpf (0-5)
[2024-07-24 18:24] LABS: ALB/GLOB Ratio 1.2 RATIO (0.9-2.4); AST(SGOT) 20 U/L (<=37); Alanine Aminotransfer ALT/SGPT 10 U/L (<=46); Albumin, Serum 3.9 g/dL (3.4-4.8); Alkaline Phosphatase 76 U/L (40-129); Anion Gap 9 (5-15); BUN 21 mg/dL (4-19); BUN/Creat Ratio 19.8 RATIO (10-20); Calcium,Total 8.9 mg/dL (7.6-11.0); Carbon Dioxide 27.4 mmol/L (21.0-32.0); Chloride 105 mmol/L (98-108); Creatinine, Serum 1.06 mg/dL (0.70-1.20); EST Glomerular Filtration Rate 67 (>60); Estimated Creatinine Clearance 55.26 ml/min (50-250); Globulin 3.3 g/dL (2.2-4.2); Glucose 136 mg/dL (70-99); Potassium 3.9 mmol/L (3.3-5.1); Protein, Total 7.2 g/dL (5.9-8.4); Sodium Level 141 mmol/L (133-145); Total Bilirubin 0.22 mg/dL (0.00-1.30)
[2024-07-24 18:40] LABS: Troponin T High Sensitivity 18 ng/L (<=22)
[2024-07-24 18:41] LABS: Lactic Acid 1.3 mmol/L (0.0-2.0)
[2024-07-24 18:52] VITALS: BP 120/62; PULSE 63; RESP 15; O2SAT 99
[2024-07-24] MEDS: 0.9% Normal Saline (500mL Bag) 500 ML 999 ML IV (19:51)
[2024-07-24] MEDS: Ceftriaxone 1 GM/50 ML BAG IV (19:53)
[2024-07-24 20:00] VITALS: BP 156/71
[2024-07-24 20:28] VITALS: BP 154/92; BP 156/71; BP 196/102; PULSE 76; PULSE 92
[2024-07-24 20:50] LABS: Troponin T High Sens 2 HR 18 ng/L (<=22)
[2024-07-24 21:46] VITALS: BP 156/71; PULSE 63; RESP 15; TEMP 36.6; O2SAT 99
[2024-07-24] MEDS: SimETHICONE 80 MG Chewable Tablet PO (22:12)
== END 2024-07-24 22:18 | disposition home or self-care (01) ==
PROVIDERS: Emergency Provider Emergency Medicine; PCP Family Medicine; Visit Provider Emergency Medicine
DX: I95.9 Hypotension, unspecified (principal); E86.0 Dehydration; K59.00 Constipation, unspecified; I10 Essential (primary) hypertension; I73.9 Peripheral vascular disease, unspecified; H40.9 Unspecified glaucoma; E78.5 Hyperlipidemia, unspecified; N40.0 Benign prostatic hyperplasia without lower urinary tract symptoms; Z79.02 Long term (current) use of antithrombotics/antiplatelets; Z79.82 Long term (current) use of aspirin; Z79.899 Other long term (current) drug therapy; Z87.891 Personal history of nicotine dependence
CPT/HCPCS: 74022; 80053; 81001; 82962; 83605; 84484; 85025; 87077; 87086; 87088; 87186; 93005; 96365; 99285; A4216

== ENCOUNTER → 2024-08-21 | Outpatient (CLI) | payer MEDICARE, SELFPAY ==
--- NOTE | 2024-08-21 09:09 | AAVD_ITS ---
Reason For Study Reason For Study: Atherosclerosis Aorta Measurements Aorta Doppler Measurements Proximal aorta measures2.53 x 2.34cm. in cross-sectional Peak systolic flow velocities within the proximal aorta axis. measure 54.2 cm/sec. Proximal aorta measures2.37cm. in longitudinal axis. Peak systolic flow velocities within the mid aorta measure Mid aorta measures1.92 x 1.69cm. in cross-sectional axis. 65.1 cm/sec. Mid aorta measures2.00cm. in longitudinal axis. Peak systolic flow velocities within the distal aorta Distal aorta measures2.33 x 2.34cm. in cross-sectional axis.measure 52.4 cm/sec. Distal aorta measures2.30cm. in longitudinal axis. Left Iliac Artery Left iliac artery measures 1.29 x 1.19 cm. in the cross-sectional axis. Left iliac artery measures 1.19 cm. in the longitudinal axis. Peak systolic velocity in the left iliac artery measures 171.1 cm/sec. Right Iliac Artery Right iliac artery measures 1.03 x 1.01 cm. in the cross-sectional axis. Right iliac artery measures 1.01 cm. in the longitudinal axis. Peak systolic velocity in the right iliac artery measures 184.0 cm/sec. Procedure Aorta IVC Iliac vasculature or bypass grafts 11251. The exam was diagnostic. Exam performed in department. VL/Abd Aortic/IVC Duplex scan Interpretation Summary No aortoiliac stenosis or aneurysm. Ordering Physician: David Meier Referring Physician: Marcos Moraes Performed By: Torres Springer, RVT
--- NOTE | 2024-08-21 09:09 | ART_ITS ---
Reason For Study Reason For Study: PVD Procedure A bilateral lower extremity continuous wave Doppler with analog waveform analysis and ankle brachial indexes. Left Segmental Pressures Left brachial= 109mmHg. Left posterior tibial artery = 73mmHg. Left dorsalis pedis artery = 100mmHg. Left digit = 57 mmHg. The left posterior tibial artery waveforms are biphasic. The left dorsalis pedis waveforms are biphasic. Right Segmental Pressures Right brachial= 103mmHg. Right posterior tibial artery = 120mmHg. Right dorsalis pedis artery = 123mmHg. Right digit = 97 mmHg. The right posterior tibial artery waveforms are biphasic. The right dorsalis pedis waveforms are biphasic. Indices The right ankle brachial index by the posterior tibial artery is 1.10. The right ankle brachial index by the dorsalis pedis is 1.13. The right digital-brachial index is 0.89. The left ankle brachial index by the posterior tibial artery is 0.67. The left ankle brachial index by the dorsalis pedis is 0.92. The left digital-brachial index is 0.52. VL/Ankle Brachial Index Interpretation Summary Resting ankle-brachial indices appear bilaterally normal. Ordering Physician: David Meier Referring Physician: Marcos Moraes Performed By: Torres Springer RVT
== END | disposition home or self-care (01) ==
LOC: CVS 08:58
PROVIDERS: PCP Family Medicine; Referring Provider Surgery Vascular Surgery; Visit Provider Surgery Vascular Surgery
DX: I65.23 Occlusion and stenosis of bilateral carotid arteries (principal); I70.213 Atherosclerosis of native arteries of extremities with intermittent claudication, bilateral legs; I10 Essential (primary) hypertension
CPT/HCPCS: 93922; 93978